=== PATIENT | male | born 1945 | race Caucasian/White ===

== ENCOUNTER 2020-11-08 12:00 | Emergency (ER) | payer MEDICARE, SELFPAY ==
--- NOTE | 2020-11-08 | ECG_ITS ---
Test Reason : NEW ONSET AFIB Blood Pressure : / mmHG Vent. Rate : 084 BPM Atrial Rate : 084 BPM P-R Int : 176 ms QRS Dur : 104 ms QT Int : 376 ms P-R-T Axes : 058 -64 048 degrees QTc Int : 444 ms Normal sinus rhythm Possible Left atrial enlargement Left axis deviation Anterior infarct (cited on or before 10-JUL-2017) Abnormal ECG When compared with ECG of 10-JUL-2017 14:04, No significant change was found Referred By: Generic ED Physician Electronically Signed By:GER CEJA MD
--- NOTE | ~2020-11-08 | XR_ITS ---
EXAMINATION: XR CHEST CLINICAL INFORMATION: Tachycardia COMPARISON: None TECHNIQUE: 2 views of the chest were obtained. FINDINGS: The lungs are hyperinflated but clear of acute process. There is a 6 mm nodule right lower lobe. Rest of lungs are clear. Heart size and pulmonary vascularity is normal. No gross bony abnormality seen. XR/XR chest 2V IMPRESSION: 6 mm nodule right lower lobe otherwise no acute process. Diffuse emphysematous lungs.
[2020-11-08 12:08] VITALS: BP 159/72; PULSE 85; RESP 16; TEMP 36.6; O2SAT 93; BMI 22.4
--- NOTE | 2020-11-08 12:38 | ED_ITS ---
HPI - General Adult General Chief complaint: Arrhythmia/Palpitations Stated complaint: ABNORMAL RHYTHM FROM MD OFFICE PER EMS Time Seen by Provider: 11/08/20 12:35 Source: patient and EMS Mode of arrival: EMS Limitations: no limitations History of Present Illness HPI narrative: 75-year-old male with a past medical history of BPH, hypertension, hyperlipidemia, COPD here with complaints of abnormal heart rhythm. Patient was seen at his primary care doctor for an annual physical. While he was here they noted his heart rate to be 130 and so they performed an EKG. His EKG was consistent with AFib with RVR with a rate of 130. The patient denies any symptoms. He tells me he has been feeling well. Denies any palpitations, weakness, shortness of breath or dizziness. On arrival to the emergency department did appear that he was back in normal sinus rhythm and a repeat EKG shows normal sinus rhythm with a rate of 84 Related Data Previous Rx's Medication Instructions Recorded rivaroxaban [Xarelto] 20 mg PO DAILY #30 tab 11/08/20 Allergies Allergy/AdvReac Type Severity Reaction Status Date / Time No Known Allergies Allergy Unverified 01/29/20 15:22 [No Known Allergies*] Review of Systems Review of Systems: Yes all other systems are reviewed and are negative Constitutional: Constitutional: Reports no additional constitutional complaints, Denies body ache(s), Denies chills, Denies fever(s), Denies headache(s) and Denies weakness Eyes: Eyes: Reports no additional eye complaints and Denies change in vision ENT: Reports system reviewed and no additional complaints, except as documented, Denies dizziness, Denies headache(s), Denies nasal congestion, Den ies nasal discharge and Denies neck pain Cardiovascular: Cardiovascular: Reports no additional cardiovascular complaints, Denies chest pain, Reports rapid heart rate, Denies leg edema and Denies dyspnea Respiratory: Respiratory: Reports no additional respiratory complaints, Denies cough and Denies dyspnea Gastrointestinal: Gastrointestinal: Reports no additional gastrointestinal complaints, Denies abdominal pain, Denies diarrhea, Denies nausea and Denies vomiting Genitourinary: Genitourinary: Denies urinary incontinence Musculoskeletal: Musculoskeletal: Reports no additional musculoskeletal complaints, Denies back pain, Denies arthralgias, Denies joint swelling, Denies neck pain, Denies numbness and Denies tingling Integumentary/Breasts: Skin/Breast: Reports system reviewed and no additional complaints, except as docu and Denies rash Neurologic: Reports system reviewed and no additional complaints, except as documented, Denies Abnormal speech present, Denies dizziness, Denies headache(s), Denies numbness, Denies tingling and Denies weakness PMFSH Past Medical History Attestation statement: The following information was validated with the patient. Source: old records reviewed and nursing notes reviewed Medical History AAA (abdominal aortic aneurysm) Cardiac arrhythmia, unspecified COPD (chronic obstructive pulmonary disease) [place] (hard of hearing) HTN (hypertension) Hypercholesteremia Myocardial infarct Neoplasm Social History Social History Alcohol intake: never Smoked in Last 30 Days: No Use of substances other than those prescribed or required for medical reasons: No Advance Directives: Yes Advance Directives Information Provided: No Advance Directives on File: No Physical Exam Vital Signs: Vital Signs: Last Vital Signs Temp 97.9 F 11/08/20 12:08 Pulse 72 11/08/20 15:32 Resp 16 11/08/20 15:32 BP 135/66 11/08/20 15:32 Pulse Ox 95 11/08/20 15:32 Body Mass Index 22.4 Const: General: cooperative, healthy appearing, comfortable and no acute distress Orientation/consciousness: patient oriented x3 Limitations: no limitations HENMT: Head: Yes normal to inspection Ears: hearing grossly normal bilaterally General nose exam: Normal external nose present Face and sinus: Yes normal facial exam Mouth: Normal oral and palatal mucosa present Throat: Yes posterior oropharynx normal Eyes: General: appearance normal, both eyes and all related structures Pupils: Equal, round and reactive pupils present Neck: Neck: Yes normal visual inspection Chest: Chest palpation & inspection: normal inspection of the chest Resp: Effort & Inspection: normal respiratory effort Auscultation: clear to auscultation bilaterally Cardio: Rate: regular rate Rhythm: regular rhythm Peripheral pulses: Peripheral pulses 2+ throughout GI: Inspection: Yes normal to inspection Palpation (GI): Soft to palpation and nontender Auscultation: normal bowel sounds Back/Spine/Pelvis: Thoracic/Lumbar Spine: thoracic and lumbar spine normal to inspection Skin: General skin exam: no rashes or lesions noted Neuro: General: patient oriented x3, no focal motor deficits and normal sensation to monofilament Cranial nerves: Yes Equal, round and reactive pupils present Cognition (Neuro): normal cognition Speech: No Abnormal spe ech present Gait exam (Neuro): Normal gait present Motor exam (neuro): 5/5 motor strength present throughout Extrem: General: Yes normal to inspection, Yes no pedal edema and Yes no calf tenderness Course Course Course Narrative: 75-year-old male coming in after noted to be in AFib out the primary care office with a rate of 130. He has been asymptomatic. Unknown how long he may have been in AFib. On arrival to the emergency department his heart rate was improved and repeat EKG shows normal sinus rhythm with a rate of 84. he denies any symptoms. Will check EKG, chest x-ray, labs - initial troponin indeterminate. Plan for repeat 3 hour troponin. Being chest x-ray shows no acute finding. EKG shows normal sinus rhythm with rate 84. 1630- Chads score 2. discussed with Dr. Freitas. Recommended starting patient on Xarelto 20 mg and following outpatient with Cardiology troponin x2 flat Medical Decision Making Medical Records Medical records reviewed: Yes I reviewed the patient's medical records. Lab Data Lab results reviewed: Yes I reviewed the patient's lab results. Result diagrams: 11/08/20 12:45 11/08/20 12:45 Labs: Lab Results 11/08/20 11/08/20 11/08/20 Range/Units 12:45 12:45 12:45 WBC 11.0 H (4.8-10.8) X10*3/uL RBC 5.10 (4.60-5.80) X10*6/uL Hgb 16.5 (14.0-18.0) g/dl Hct 47.7 (42-52) % MCV 93.5 (80-98) fL MCH 32.4 (27.0-33.0) pg MCHC 34.6 (31.0-36.0) g/dl RDW 13.0 (11.0-16.0) % Plt Count 250 (160-400) X10*3/uL MPV 9.4 (9.4-12.4) fL Immature Gran % (Auto) 0.4 (0.0-0.4) % Neut % (Auto) 76.3 H (45-73) % Lymph % (Auto) 14.8 L (20-40) % [place] % (Auto) 7.7 (2-11) % Eos % (Auto) 0.3 (0-4) % Baso % (Auto) 0.5 (0-2) % Lymph # (Auto) 1.6 (1.2-4.9) X10*3/uL [place] # (Auto) 0.8 (0.1-1.2) X10*3/uL Eos # (Auto) 0.0 (0.0-0.4) X10*3/uL Baso # (Auto) 0.1 (0.0-0.2) X10*3/uL Abs Immat Gran (auto) 0.04 H (0.00-0.03) X10*3/uL Absolute Neuts (auto) 8.4 H (2.0-8.3) X10*3/uL Absolute Nucleated RBC 0.000 (0.0-0.012) X10*3/uL Nucleated RBC % (auto) 0.0 (0.0-0.2) /100WBC Sodium 141 (135-145) mmol/L Potassium 3.3 (3.3-5.1) mmol/L Chloride 105 (96-108) mmol/L Carbon Dioxide 24 (22-29) mmol/L Anion Gap 15 (12-20) BUN 16 (9-16) mg/dL Creatinine 0.91 (0.5-1.4) mg/dL Estim Creat Clear Calc 69.4 Estimated GFR > 60 Random Glucose 106 (60-115) mg/dL Calcium 9.8 (8.4-10.2) mg/dL Magnesium 2.1 (1.6-2.6) mg/dL Total Bilirubin 0.4 (0.0-1.0) mg/dL Direct Bilirubin 0.3 (0.0-0.5) mg/dL AST 18 (5-37) U/L ALT 13 (0-40) U/L Alkaline Phosphatase 79 (39-117) U/L Troponin I High Sens 10.4 (<3.5-35.0) ng/L Total Protein 7.4 (6.5-8.0) g/dL Albumin 4.6 (3.5-5.0) g/dL 11/08/20 Range/Units 15:56 WBC (4.8-10.8) X10*3/uL RBC (4.60-5.80) X10*6/uL Hgb (14.0-18.0) g/dl Hct (42-52) % MCV (80-98) fL MCH (27.0-33.0) pg MCHC (31.0-36.0) g/dl RDW (11.0-16.0) % Plt Count (160-400) X10*3/uL MPV (9.4-12.4) fL Immature Gran % (Auto) (0.0-0.4) % Neut % (Auto) (45-73) % Lymph % (Auto) (20-40) % [place] % (Auto) (2-11) % Eos % (Auto) (0-4) % Baso % (Auto) (0-2) % Lymph # (Auto) (1.2-4.9) X10*3/uL [place] # (Auto) (0.1-1.2) X10*3/uL Eos # (Auto) (0.0-0.4) X10*3/uL Baso # (Auto) (0.0-0.2) X10*3/uL Abs Immat Gran (auto) (0.00-0.03) X10*3/uL Absolute Neuts (auto) (2.0-8.3) X10*3/uL Absolute Nucleated RBC (0.0-0.012) X10*3/uL Nucleated RBC % (auto) (0.0-0.2) /100WBC Sodium (135-145) mmol/L Potassium (3.3-5.1) mmol/L Chloride (96-108) mmol/L Carbon Dioxide (22-29) mmol/L Anion Gap (12-20) BUN (9-16) mg/dL Creatinine (0.5-1.4) mg/dL Estim Creat Clear Calc Estimated GFR Random Glucose (60-115) mg/dL Calcium (8.4-10.2) mg/dL Magnesium (1.6-2.6) mg/dL Total Bilirubin (0.0-1.0) mg/dL Direct Bilirubin (0.0-0.5) mg/dL AST (5-37) U/L ALT (0-40) U/L Alkaline Phosphatase (39-117) U/L Troponin I High Sens 13.5 (<3.5-35.0) ng/L Total Protein (6.5-8.0) g/dL Albumin (3.5-5.0) g/dL Imaging Data Chest x-ray: Attestation: I personally reviewed and interpreted this imaging study as follows: Radiologist's impression: XAMINATION: XR CHEST CLINICAL INFORMATION: Tachycardia COMPARISON: None TECHNIQUE: 2 views of the chest were obtained. FINDINGS: The lungs are hyperinflated but clear of acute process. There is a 6 mm nodule right lower lobe. Rest of lungs are clear. Heart size and pulmonary vascularity is normal. No gross bony abnormality seen. XR/XR chest 2V IMPRESSION: 6 mm nodule right lower lobe otherwise no acute process. Diffuse emphysematous lungs. ECG Data Attestation: I personally reviewed and interpreted this ECG as follows: Interpretation: normal sinus rhythm with a rate of 84 Discharge Plan Discharge Clinical Impression: Atrial fibrillation Qualifiers: Atrial fibrillation type: unspecified Qualified Code(s): I48.91 - Unspecified atrial fibrillation Patient Disposition: Home, Self-Care Instructions: Rivaroxaban (By mouth), A-fib (Atrial Fibrillation) (ED), Blood Thinners (ED) Additional Instructions: Your blood work and x-ray looked normal. You are actually in a normal sinus rhythm since arriving to the emergency department. After discussion with our child and adolescent psychiatrist we have decided to place you on blood thinners. This is to prevent a blood clot or stroke from occurring. You need to call cardiology for a follow-up appointment. While you are taking blood thinners you cannot take any aspirin, Motrin, ibuprofen, naproxen. You are now increased risk for bleeding. if you fall and hit your head you need to seek care in the emergency department. If you cut yourself apply direct pressure for 15 minutes and this is not resolved seek care in the emergency department. Use an electric razor for shaving Prescriptions: New Xarelto 20 mg tablet 20 mg PO DAILY Qty: 30 RF: 0 Referrals: Jonas Freitas MD [Physician] - 2 days Interventions: ED Discharge Assessment Last Done: 11/08/20 16:56 Discharge Date/Time: 11/08/20 16:56
[2020-11-08 12:50] LABS: MANUAL DIFF FLAG NO
[2020-11-08 12:54] LABS: Basophils Absolute Auto 0.1 X10*3/uL (0.0-0.2); Basophils Percent Auto 0.5 % (0-2); Eosinophils Percent Auto 0.3 % (0-4); Hematocrit 47.7 % (42-52); Hemoglobin 16.5 g/dl (14.0-18.0); Imm Gran Abs Auto 0.04 X10*3/uL (0.00-0.03); Imm Gran Pct Auto 0.4 % (0.0-0.4); Lymphocytes Absolute Auto 1.6 X10*3/uL (1.2-4.9); Lymphocytes Percent Auto 14.8 % (20-40); Mean Corpuscular HGB Conc 34.6 g/dl (31.0-36.0); Mean Corpuscular Hemoglobin 32.4 pg (27.0-33.0); Mean Corpuscular Volume 93.5 fL (80-98); Mean Platelet Volume 9.4 fL (9.4-12.4); Monocytes Absolute Auto 0.8 X10*3/uL (0.1-1.2); Monocytes Percent Auto 7.7 % (2-11); Neutrophils Absolute Auto 8.4 X10*3/uL (2.0-8.3); Neutrophils Percent Auto 76.3 % (45-73); Platelet Count 250 X10*3/uL (160-400)
[2020-11-08 13:14] LABS: Alanine Aminotransferase 13 U/L (0-40); Albumin Level 4.6 g/dL (3.5-5.0); Alkaline Phosphatase 79 U/L (39-117); Anion Gap 15 (12-20); Aspartate Amino Transferase 18 U/L (5-37); Bilirubin Direct 0.3 mg/dL (0.0-0.5); Bilirubin Total 0.4 mg/dL (0.0-1.0); Blood Urea Nitrogen 16 mg/dL (9-16); Calcium 9.8 mg/dL (8.4-10.2); Carbon Dioxide 24 mmol/L (22-29); Chloride 105 mmol/L (96-108); Creatinine Clr Calc Pharmacy 69.4; Estimated Glomerular Filt Rate > 60; Glucose Random 106 mg/dL (60-115); Magnesium 2.1 mg/dL (1.6-2.6); Potassium 3.3 mmol/L (3.3-5.1); Sodium 141 mmol/L (135-145); Total Protein 7.4 g/dL (6.5-8.0)
[2020-11-08 13:18] LABS: Troponin-I High Sensitivity 10.4 ng/L (<3.5-35.0)
[2020-11-08 14:00] VITALS: PULSE 71; RESP 22; O2SAT 93
[2020-11-08 15:32] VITALS: BP 135/66; PULSE 72; RESP 16; O2SAT 95
--- NOTE | 2020-11-08 15:33 | PC.NURSE ---
NSR on monitor, Pt denies pain. Irritable states all i want to do it get out of here Aware of plan for troponin at 1545 Skin pink warm and dry. Speaking full sentences
--- NOTE | 2020-11-08 15:59 | PC.NURSE ---
repeat troponin obtained/sent
[2020-11-08 16:33] LABS: Troponin-I High Sensitivity 13.5 ng/L (<3.5-35.0)
== END 2020-11-08 16:56 | disposition home or self-care (01) ==
PROVIDERS: Nurse Practitioner Family; Emergency Provider Emergency Medicine Emergency Medical Services; PCP Internal Medicine
DX: I48.91 Unspecified atrial fibrillation (principal); I10 Essential (primary) hypertension; J44.9 Chronic obstructive pulmonary disease, unspecified; I25.2 Old myocardial infarction
CPT/HCPCS: 36415; 71046; 80048; 80076; 83735; 84484; 85025; 93005; 99285

== ENCOUNTER → 2020-11-10 11:22 | Outpatient (REF) | payer MEDICARE, SELFPAY | LOC: HO.CARD 11:22 | PROVIDERS: Visit Provider Internal Medicine Cardiovascular Disease | DX: Z13.89 Encounter for screening for other disorder (principal) ==

== ENCOUNTER → 2020-12-06 09:03 | Outpatient (REF) | payer MEDICARE, SELFPAY ==
--- NOTE | 2020-12-06 10:40 | ECG_ITS ---
Hook-up date: 2020-12-06 09:21:00 Duration: 28:22:00 Test Indications: UNSPEC. AFIB Medications: 246415 QRS complexes 1972 Ventricular ectopics which represent 1 % of total QRS comp. 146 Supraventricular ectopics which represent <1 % of total QRS comp. * Paced QRS complexs which represent % of total QRS comp. VENTRICULAR ECTOPY 1934 Isolated 6 Bigeminal Cycles 19 Couplets 0 Runs 0 Beats in Runs * Beats LONGEST at * BPM at :: -- * Beats FASTEST at * BPM at :: -- SUPRAVENTRICULAR ECTOPY 146 Isolated 0 Couplets 0 Runs 0 Beats in Runs * Beats LONGEST at * BPM at :: -- * Beats FASTEST at * BPM at :: -- HEART RATES 70 MIN at 20:56:39 2020-12-06 83 AVG 119 MAX at 14:05:09 2020-12-06 LONGEST RR 0.9200 secs at 06:51:27 2020-12-07 S-T LEVELS Channel 1 - 128 mm at 09:21:00 2020-12-06 - 128 mm at 09:21:00 2020-12-06 Channel 2 - 128 mm at 09:21:00 2020-12-06 - 128 mm at 09:21:00 2020-12-06 Channel 3 - 128 mm at 02:84:01 -- - 128 mm at 02:84:01 Underlying rhythm is sinus; Average ventricular rate 83/min; range 70-119/min; Occasional Premature ventricular complexes (2%); mostly isolated with some couplets; Rare Premature atrial complexes ; No evidence of atrial fibrillation; Patient did not return diary Referred By: Jonas Freitas Overread By: VICENTE LONG
== END ==
LOC: HO.CARD 09:03
PROVIDERS: PCP Internal Medicine; Visit Provider Internal Medicine Cardiovascular Disease
DX: I48.91 Unspecified atrial fibrillation (principal)
CPT/HCPCS: 93226

== ENCOUNTER → 2020-12-27 08:09 | Outpatient (REF) | payer MEDICARE, SELFPAY ==
--- NOTE | 2020-12-27 08:14 | CA_ITS ---
Transthoracic Echocardiogram Patient (Last, First, Middle): Sukh Montes J Gender: Male Date of : 1945 Age: 75 Procedure Date: 12/27/2020 Procedure Type: Transthoracic Echocardiogram Location: OP Height: 175.26 cm Weight: 68.95 kg BSA: 1.84 m2 Heart Rate: bpm BP: 116 / 60 mmHg Brand Inspector: Referring MD: Jonas Freitas MD Symptoms: I48.91 - Unspecified atrial fibrillation Study Quality: Fair ECG Rhythm: Sinus Conclusions: - The left ventricular systolic function is normal. The visually estimated ejection fraction is between 65-70%. - There is mild calcification of the aortic valve. Findings Left Ventricle Normal left ventricular cavity size. There is normal left ventricular wall thickness. The left ventricular systolic function is normal. The visually estimated ejection fraction is between 65-70%. There is no evidence of regional wall motion abnormalities. Diastolic function is normal for age. Right Ventricle Normal right ventricular cavity size and systolic function. Atria Both atria are normal in size. Aortic Valve There is a normal trileaflet aortic valve. There is mild calcification of the aortic valve. There is no aortic valve stenosis. The mean gradient is 4 mmHg. There is trace (trivial) aortic valve regurgitation. Mitral Valve The mitral valve appears normal. There is no mitral valve regurgitation. There is no mitral valve stenosis. Pulmonic Valve The pulmonic valve was not well visualized. There is trace pulmonic valve regurgitation. Tricuspid Valve Normal tricuspid valve structure. There is trace tricuspid valve regurgitation. The pulmonary artery systolic pressure is normal. Great Vessels The aortic annulus, sinuses of valsalva, and asc aorta are normal in size. Venous The inferior vena cava is normal in size and collapses greater than 50% with inspiration. Pericardium/Pleural There is no evidence of pericardial effusion. Prior Study Comparison No significant change compared to prior study dated: 08/07/2017. Measurements 2D Linear Measurements IVSd: 1.01 0.6-0.9/0.6-1.0 cm LVIDd: 4.38 3.9-5.3/4.2-5.9 cm LVIDd Index: 2.38 2.4-3.2/2.2-3.1 cm/m2 LVIDs: 2.73 2.0-3.6 cm LVPWd: 1.00 0.7-1.1 cm Ao Root: 3.60 2.1-3.5 cm LA Diam: 3.60 2.7-3.8/3.0-4.0 cm LAIDs Index: 1.96 1.5-2.3 cm/m2 LV Mass: 183.97 67-162/88-224 g LV Mass Index: 99.98 43-95/49-115 g/m2 LVOT Diam: 2.50 3.0+(-)1.3 cm 2D Systolic Function EF 4C: 64.60 >55% EF 2C: 68.70 >55% EF BiP: 67.00 >55% Mitral Valve MV Pk E: 0.63 MV PK A: 0.91 MV Decel Time: 214.00 E/A: 0.70 E'Lateral: 9.95 E'Medial: 6.42 E/E' Med: 9.80 E/E' Lat: 6.30 PHT: 63.00 MVA PHT: 3.49 Decel Chase: 2.94 Aortic Valve AoV Pk Michael: 1.43 AoV Mn Michael: 0.90 AoV VTI: 0.32 AoV Pk Grad: 8.00 Aov Mn Grad: 4.00 [place] Cont.VTI: 2.93 LVOT LVOT Pk Michael: 0.71 LVOT Mn Michael: 0.36 LVOT VTI: 0.19 LVOT Pk Grad: 2.00 LVOT Mn Grad: 1.00 LVOT Diam: 2.50 LVOT Area: 4.91 Diastolic Function MV Pk E: 0.63 MV Pk A: 0.91 E/A: 0.70 E'Medial: 6.42 E/E' Med: 9.80 E' Laterial: 9.95 E/E' Lat: 6.30 Right Ventricle TAPSE (mm): 26.00 Tricuspid Valve TR Pk Michael: 1.82 TR Pk Grad: 13.00 RA Press: 3.00 RVSP: 16.00 Great Vessels Aorta Ao Root-2D: 3.60 2.0-3.7 cm Ao Asc: 3.30 2.1-3.4 cm Pulmonary Valve PV Pk Michael: 1.03 Peak PV Grad: 4.00 Updated in Other Vendor System with Status of Final Deepak Benavides MD electronically signed on 12/28/2020 12:04:58 PM with status of Final
== END ==
LOC: HO.CARD 08:09
PROVIDERS: Visit Provider Internal Medicine Cardiovascular Disease
DX: I48.91 Unspecified atrial fibrillation (principal)
CPT/HCPCS: 93306

== ENCOUNTER → 2021-01-10 13:36 | Outpatient (BNVA) | payer MEDICARE, SELFPAY | PROVIDERS: PCP Internal Medicine; Visit Provider Internal Medicine Cardiovascular Disease | DX: I48.0 Paroxysmal atrial fibrillation (principal); I49.3 Ventricular premature depolarization; I10 Essential (primary) hypertension; I77.9 Disorder of arteries and arterioles, unspecified | CPT/HCPCS: 93005; 99212 ==

== ENCOUNTER → 2021-07-11 08:20 | Outpatient (BNVA) | payer MEDICARE, SELFPAY | PROVIDERS: PCP Internal Medicine; Visit Provider Internal Medicine Cardiovascular Disease | DX: I48.0 Paroxysmal atrial fibrillation (principal); I77.9 Disorder of arteries and arterioles, unspecified; Z79.01 Long term (current) use of anticoagulants; Z79.899 Other long term (current) drug therapy | CPT/HCPCS: 93005; 99212 ==

== ENCOUNTER → 2022-08-16 08:49 | Outpatient (REF) | payer MEDICARE, SELFPAY ==
--- NOTE | 2022-08-16 08:51 | CA_ITS ---
Transthoracic Echocardiogram Patient (Last, First, Middle): Sukh Montes J Gender: Male Date of : 1945 Age: 77 Procedure Date: 08/16/2022 Procedure Type: Transthoracic Echocardiogram Location: OP Height: 177.8 cm Weight: 68.95 kg BSA: 1.86 m2 Heart Rate: 61 bpm BP: 110 / 60 mmHg Auto Body Technician: TEJAL Referring MD: Jonas Freitas MD Forest Aide: Jonas Freitas MD Symptoms: I48.0 - Paroxysmal atrial fibrillation Study Quality: Technically Difficult ECG Rhythm: Sinus Conclusions: - 1. Normal LV systolic function with impaired relaxation filling pattern 2. Normal cardiac valvular Doppler 3. No gross pericardial effusion Findings Left Ventricle Normal left ventricular size, thickness, and systolic function. The visually estimated ejection fraction is between 60-65%. Spectral Doppler is indicative of an impaired relaxation filling pattern. E/E prime ratio is between 8 and 15 consistent with indeterminate filling pressures. Right Ventricle Normal right ventricular cavity size and systolic function. Atria The left atrium is normal in size. Interatrial shunt cannot be excluded. The right atrium was not well visualized. Aortic Valve There is mild calcification of the aortic valve. There is no aortic valve stenosis. There is no aortic valve regurgitation. Mitral Valve There is mild anterior and posterior mitral leaflet thickening. There is trace mitral valve regurgitation. There is no mitral valve stenosis. Pulmonic Valve The pulmonic valve was not well visualized. Tricuspid Valve Likely normal tricuspid valve structure and function. Tricuspid regurgitation envelope is inadequate for calculation of right ventricular systolic pressure. Normal right atrial pressure. Great Vessels All visible segments of the aorta are normal in size. The pulmonary artery was not well visualized. Venous The inferior vena cava is normal in size and collapses greater than 50% with inspiration. Pericardium/Pleural There is no evidence of pericardial effusion. Measurements 2D Linear Measurements IVSd: 1.12 0.6-0.9/0.6-1.0 cm LVIDd: 4.21 3.9-5.3/4.2-5.9 cm LVIDd Index: 2.26 2.4-3.2/2.2-3.1 cm/m2 LVIDs: 2.45 2.0-3.6 cm LVPWd: 1.09 0.7-1.1 cm LA Diam: 3.60 2.7-3.8/3.0-4.0 cm LAIDs Index: 1.94 1.5-2.3 cm/m2 LV Mass: 197.59 67-162/88-224 g LV Mass Index: 106.23 43-95/49-115 g/m2 LVOT Diam: 2.40 3.0+(-)1.3 cm 2D Systolic Function EF 4C: 62.00 >55% EF 2C: 59.50 >55% EF BiP: 60.20 >55% Mitral Valve MV Pk E: 0.94 MV PK A: 0.93 MV Decel Time: 205.00 E/A: 1.00 E'Lateral: 6.74 E'Medial: 6.85 E/E' Med: 13.80 E/E' Lat: 14.00 PHT: 60.00 MVA PHT: 3.67 Decel Keith: 4.59 Aortic Valve AoV Pk Michael: 1.57 AoV Mn Michael: 1.16 AoV VTI: 0.35 AoV Pk Grad: 10.00 Aov Mn Grad: 6.00 [place] Cont.VTI: 2.49 LVOT LVOT Pk Michael: 0.90 LVOT Mn Michael: 0.61 LVOT VTI: 0.19 LVOT Pk Grad: 3.00 LVOT Mn Grad: 2.00 LVOT Diam: 2.40 LVOT Area: 4.52 Diastolic Function MV Pk E: 0.94 MV Pk A: 0.93 E/A: 1.00 E'Medial: 6.85 E/E' Med: 13.80 E' Laterial: 6.74 E/E' Lat: 14.00 Right Ventricle TAPSE (mm): 18.50 TVS' Michael: 9.46 Tricuspid Valve RA Press: 3.00 Great Vessels Aorta Sinus of Valsalva: 3.80 2.0-3.5 cm Ao Asc: 3.40 2.1-3.4 cm Pulmonary Valve PV Pk Michael: 0.79 Peak PV Grad: 2.00 Updated in Other Vendor System with Status of Final Jonas Freitas MD electronically signed on 08/16/2022 12:39:33 PM with status of Final
== END ==
LOC: HO.CARD 08:49
PROVIDERS: PCP Internal Medicine; Visit Provider Internal Medicine Cardiovascular Disease
DX: I48.0 Paroxysmal atrial fibrillation (principal)
CPT/HCPCS: 93306

== ENCOUNTER 2023-03-19 08:02 | Outpatient (AMB) | payer MEDICARE, SELFPAY ==
[2023-03-19 08:35] LABS: Prothrombin Time Whole Bld POC 40.4 sec (11.1-13.5); ~PT, ~INR - Anti Coag Clinic 3.4 (0.9-1.1)
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
[2023-03-19 10:38] VITALS: BP 142/64; PULSE 68; RESP 20
== END 2023-03-19 12:00 | disposition home or self-care (01) ==
LOC: HO.ACS 08:02
PROVIDERS: PCP Internal Medicine; Visit Provider Internal Medicine
DX: Z79.01 Long term (current) use of anticoagulants (principal)

== ENCOUNTER → 2023-03-19 08:02 | Outpatient (BNVA) | payer MEDICARE, SELFPAY | PROVIDERS: PCP Internal Medicine; Visit Provider Internal Medicine | DX: I48.0 Paroxysmal atrial fibrillation (principal); Z79.01 Long term (current) use of anticoagulants; Z51.81 Encounter for therapeutic drug level monitoring | CPT/HCPCS: 85610; 99202 ==

== ENCOUNTER 2023-03-22 08:07 | Outpatient (AMB) | payer MEDICARE, SELFPAY ==
[2023-03-22 08:18] LABS: Prothrombin Time Whole Bld POC 31.2 sec (11.1-13.5); ~PT, ~INR - Anti Coag Clinic 2.6 (0.9-1.1)
--- NOTE | 2023-03-22 08:22 | MHC.OFFVISCO ---
Intake Intake Visit Reasons: Anticoagulation Allergies No Known Allergies [No Known Allergies*] Allergy (Verified 03/22/23 08:11) Medication List - Last Reconciled 03/22/23 by Britany Flores RN atorvastatin 20 mg PO DAILY cilostazol 100 mg PO .qd fluticasone propionate 50 mcg/actuation 1 spray intranasal BID hydrochlorothiazide 25 mg PO DAILY metoprolol succinate ER 25 mg PO DAILY nifedipine ER 60 mg PO DAILY umeclidinium 62.5 mcg/actuation (Incruse Ellipta) 1 inh inhalation DAILY warfarin 5 mg See Protocol PO DAILY Nursing Note Amb to ACS for ACS visit #2, feeling well, going to work after this appt Medications and supplements reviewed, brought warfarin bottle in, script reads one pill daily and qty filled was 30, will call PCP for new script No changes in health, diet, medications, or supplements, although sts he really didn't do greens had roasted veggies including beets, butternut squash, reviewed food lists Denies any unusual signs and symptoms of bruising, bleeding Denies any new Chest pain, SOB, or clotting INR: 2.6 in therapeutic range, off Eloquis Nutritional guidance given: balance greens and reds in diet Dose: continue 5mg daily but take 2.5mg on Sunday (bring to next visit); F/U INR: SundayMar 26 Patient verbalizes understanding of instructions given with accurate read back/ teach back of dosing Anti-Coag Initial Assessment Social Hx Patient Tobacco Use Status: Current someday Tobacco user Tobacco use type: Cigarette alcohol intake: former Alcohol intake frequency: former alcohol drinker Cardiovascular Hx: HTN, [place], Arrhythmias and Other (PVD recent bilateral femoral stents) Lung Disease HX: COPD and Emphysema Blood Disorder Hx: Hyperlipidemia Cancer HX: No Psych. Illness/Depression: No Coding Level of Care Code Est Patient Level 1 Diagnoses Current use of anticoagulant therapy Z79.01 Time Spent (min) 15 Assessment & Plan Assessment & Plan (1) Current use of anticoagulant therapy: Code(s): Z79.01 - [facility] (current) use of anticoagulants Category: Medical
== END 2023-03-22 08:35 | disposition home or self-care (01) ==
LOC: HO.ACS 08:07
PROVIDERS: PCP Internal Medicine; Visit Provider Internal Medicine
DX: Z79.01 Long term (current) use of anticoagulants (principal)

== ENCOUNTER → 2023-03-22 08:07 | Outpatient (BNVA) | payer MEDICARE, SELFPAY | PROVIDERS: PCP Internal Medicine; Visit Provider Internal Medicine | DX: I48.0 Paroxysmal atrial fibrillation (principal); Z79.01 Long term (current) use of anticoagulants; Z51.81 Encounter for therapeutic drug level monitoring | CPT/HCPCS: 85610; 99211 ==

== ENCOUNTER 2023-03-26 07:59 | Outpatient (AMB) | payer MEDICARE, SELFPAY ==
[2023-03-26 08:08] LABS: Prothrombin Time Whole Bld POC 43.3 sec (11.1-13.5); ~PT, ~INR - Anti Coag Clinic 3.6 (0.9-1.1)
--- NOTE | 2023-03-26 08:16 | MHC.OFFVISCO ---
Intake Intake Visit Reasons: Anticoagulation Allergies No Known Allergies [No Known Allergies*] Allergy (Verified 03/26/23 08:01) Medication List - Last Reconciled 03/26/23 by Adriane Schmidt RN atorvastatin 20 mg PO DAILY cilostazol 100 mg PO .qd fluticasone propionate 50 mcg/actuation 1 spray intranasal BID hydrochlorothiazide 25 mg PO DAILY metoprolol succinate ER 25 mg PO DAILY nifedipine ER 60 mg PO DAILY umeclidinium 62.5 mcg/actuation (Incruse Ellipta) 1 inh inhalation DAILY warfarin 5 mg See Protocol PO DAILY Nursing Note INR: 3.6 OUT OF therapeutic range Medications and supplements reviewed No changes in health, diet, medications, or supplements, Denies any signs and symptoms of bleeding or bruising or clotting. Bleeding, bruising, clotting discussed Nutritional guidance given REVIEW FOOD LIST HAVE GREENS WEEKLY Dose: DECREASE WEESLY DOSE 2.5MG X 2 DAYS/ 5MG X 5 DAYS F/U INR: 1 WEEK Patient verbalizes understanding of instructions given Anti-Coag Initial Assessment Social Hx Patient Tobacco Use Status: Current someday Tobacco user Tobacco use type: Cigarette alcohol intake: former Alcohol intake frequency: former alcohol drinker Cardiovascular Hx: HTN, [place], Arrhythmias and Other (PVD recent bilateral femoral stents) Lung Disease HX: COPD and Emphysema Blood Disorder Hx: Hyperlipidemia Cancer HX: No Psych. Illness/Depression: No Coding Level of Care Code Est Patient Level 1 Diagnoses Current use of anticoagulant therapy Z79.01 Results AMB INR Fingerstick AMB INR Fingerstick 3.6 Last Edit by Adriane Schmidt RN on 03/26/23 08:09 manual entry Assessment & Plan Assessment & Plan (1) Current use of anticoagulant therapy: Code(s): Z79.01 - sn[facility] (current) use of anticoagulants Category: Medical Medications: On Hold hydrochlorothiazide Hold Comment: pt states has not been renewed pt to ask md 25 mg PO DAILY
== END 2023-03-26 08:18 | disposition home or self-care (01) ==
LOC: HO.ACS 07:59
PROVIDERS: PCP Internal Medicine; Visit Provider Internal Medicine
DX: Z79.01 Long term (current) use of anticoagulants (principal)

== ENCOUNTER → 2023-03-26 07:59 | Outpatient (BNVA) | payer MEDICARE, SELFPAY | PROVIDERS: PCP Internal Medicine; Visit Provider Internal Medicine | DX: I48.0 Paroxysmal atrial fibrillation (principal); Z79.01 Long term (current) use of anticoagulants; Z51.81 Encounter for therapeutic drug level monitoring | CPT/HCPCS: 85610; 99211 ==

== ENCOUNTER 2023-04-02 08:19 | Outpatient (AMB) | payer MEDICARE, SELFPAY ==
[2023-04-02 08:48] LABS: Prothrombin Time Whole Bld POC 35.9 sec (11.1-13.5)
--- NOTE | 2023-04-02 08:54 | MHC.OFFVISCO ---
Intake Intake Visit Reasons: Anticoagulation Allergies No Known Allergies [No Known Allergies*] Allergy (Verified 03/26/23 08:01) Nursing Note INR: 3.0 in therapeutic range Medications and supplements reviewed No changes in health, diet, medications, or supplements, Denies any signs and symptoms of bleeding or bruising or clotting. Bleeding, bruising, clotting discussed Nutritional guidance given Dose: KEEP SAME DOSE 2.5MG X 2 DAYS/ 5MG X 5 DAYS TRY AGAIN F/U INR: 1 WEEK Patient verbalizes understanding of instructions given Anti-Coag Initial Assessment Social Hx Patient Tobacco Use Status: Current someday Tobacco user Tobacco use type: Cigarette alcohol intake: former Alcohol intake frequency: former alcohol drinker Cardiovascular Hx: HTN, [place], Arrhythmias and Other (PVD recent bilateral femoral stents) Lung Disease HX: COPD and Emphysema Blood Disorder Hx: Hyperlipidemia Cancer HX: No Psych. 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
== END 2023-04-02 08:56 | disposition home or self-care (01) ==
LOC: HO.ACS 08:19
PROVIDERS: PCP Internal Medicine; Visit Provider Internal Medicine
DX: Z79.01 Long term (current) use of anticoagulants (principal)

== ENCOUNTER → 2023-04-02 08:19 | Outpatient (BNVA) | payer MEDICARE, SELFPAY | PROVIDERS: PCP Internal Medicine; Visit Provider Internal Medicine | DX: I48.0 Paroxysmal atrial fibrillation (principal); Z79.01 Long term (current) use of anticoagulants; Z51.81 Encounter for therapeutic drug level monitoring | CPT/HCPCS: 85610; 99211 ==

== ENCOUNTER 2023-04-10 07:57 | Outpatient (AMB) | payer MEDICARE, SELFPAY ==
--- NOTE | 2023-04-10 08:05 | MHC.OFFVISCO ---
Intake Intake Visit Reasons: Anticoagulation Allergies No Known Allergies [No Known Allergies*] Allergy (Verified 04/10/23 07:57) Medication List - Last Reconciled 04/10/23 by Adriane Schmidt RN atorvastatin 20 mg PO DAILY cilostazol 100 mg PO .qd fluticasone propionate 50 mcg/actuation 1 spray intranasal BID hydrochlorothiazide 25 mg PO DAILY metoprolol succinate ER 25 mg PO DAILY nifedipine ER 60 mg PO DAILY umeclidinium 62.5 mcg/actuation (Incruse Ellipta) 1 inh inhalation DAILY warfarin 5 mg See Protocol PO DAILY Nursing Note INR: 2.6 in therapeutic range Medications and supplements reviewed No changes in health, diet, medications, or supplements, Denies any signs and symptoms of bleeding or bruising or clotting. Bleeding, bruising, clotting discussed Nutritional guidance given- keep balancing diet Dose: 2.5mg x 2 days/ 5mg x 5 days F/U INR: 2 weeks Patient verbalizes understanding of instructions given Anti-Coag Initial Assessment Social Hx Patient Tobacco Use Status: Current someday Tobacco user Tobacco use type: Cigarette alcohol intake: former Alcohol intake frequency: former alcohol drinker Cardiovascular Hx: HTN, [place], Arrhythmias and Other (PVD recent bilateral femoral stents) Lung Disease HX: COPD and Emphysema Blood Disorder Hx: Hyperlipidemia Cancer HX: No Psych. Illness/Depression: No Coding Level of Care Code Est Patient Level 1 Results AMB INR Fingerstick AMB INR Fingerstick 2.6 Last Edit by Adriane Schmidt RN on 04/10/23 08:06 manual entry failed interfacing ongoing
[2023-04-10 08:13] LABS: Prothrombin Time Whole Bld POC 31.8 sec (11.1-13.5); ~PT, ~INR - Anti Coag Clinic 2.6 (0.9-1.1)
== END 2023-04-10 08:11 | disposition home or self-care (01) ==
LOC: HO.ACS 07:57
PROVIDERS: PCP Internal Medicine; Visit Provider Internal Medicine
DX: Z79.01 Long term (current) use of anticoagulants (principal)

== ENCOUNTER → 2023-04-10 07:57 | Outpatient (BNVA) | payer MEDICARE, SELFPAY | PROVIDERS: PCP Internal Medicine; Visit Provider Internal Medicine | DX: I48.0 Paroxysmal atrial fibrillation (principal); Z79.01 Long term (current) use of anticoagulants; Z51.81 Encounter for therapeutic drug level monitoring | CPT/HCPCS: 85610; 99211 ==

== ENCOUNTER 2023-04-24 08:06 | Outpatient (AMB) | payer MEDICARE, SELFPAY ==
[2023-04-24 08:16] LABS: Prothrombin Time Whole Bld POC 32.2 sec (11.1-13.5); ~PT, ~INR - Anti Coag Clinic 2.7 (0.9-1.1)
--- NOTE | 2023-04-24 08:18 | MHC.OFFVISCO ---
Intake Intake Visit Reasons: Anticoagulation Allergies No Known Allergies [No Known Allergies*] Allergy (Verified 04/24/23 08:11) Medication List - Last Reconciled 04/24/23 by Adriane Schmidt RN atorvastatin 20 mg PO DAILY cilostazol 100 mg PO .qd fluticasone propionate 50 mcg/actuation 1 spray intranasal BID hydrochlorothiazide 25 mg PO DAILY metoprolol succinate ER 25 mg PO DAILY nifedipine ER 60 mg PO DAILY umeclidinium 62.5 mcg/actuation (Incruse Ellipta) 1 inh inhalation DAILY warfarin 5 mg See Protocol PO DAILY Nursing Note INR: 2.7 in therapeutic range Medications and supplements reviewed No changes in health, diet, medications, or supplements, Denies any signs and symptoms of bleeding or bruising or clotting. Bleeding, bruising, clotting discussed Nutritional guidance given Dose: SAME 2.5MG X 2 DAYS/ 5MG X 5 DAYS F/U INR: 2 WEEKS Patient verbalizes understanding of instructions given Anti-Coag Initial Assessment Social Hx Patient Tobacco Use Status: Current someday Tobacco user Tobacco use type: Cigarette alcohol intake: former Alcohol intake frequency: former alcohol drinker Cardiovascular Hx: HTN, [place], Arrhythmias and Other (PVD recent bilateral femoral stents) Lung Disease HX: COPD and Emphysema Blood Disorder Hx: Hyperlipidemia Cancer HX: No Psych. Illness/Depression: No Coding Level of Care Code Est Patient Level 1 Diagnoses Current use of anticoagulant therapy Z79.01 Assessment & Plan Assessment & Plan (1) Current use of anticoagulant therapy: Code(s): Z79.01 - group home (current) use of anticoagulants Category: Medical
== END 2023-04-24 08:21 | disposition home or self-care (01) ==
LOC: HO.ACS 08:06
PROVIDERS: PCP Internal Medicine; Visit Provider Internal Medicine
DX: Z79.01 Long term (current) use of anticoagulants (principal)

== ENCOUNTER → 2023-04-24 08:06 | Outpatient (BNVA) | payer MEDICARE, SELFPAY | PROVIDERS: PCP Internal Medicine; Visit Provider Internal Medicine | DX: I48.0 Paroxysmal atrial fibrillation (principal); Z79.01 Long term (current) use of anticoagulants; Z51.81 Encounter for therapeutic drug level monitoring | CPT/HCPCS: 85610; 99211 ==

== ENCOUNTER 2023-05-09 08:18 | Outpatient (AMB) | payer MEDICARE, SELFPAY ==
[2023-05-09 08:26] LABS: Prothrombin Time Whole Bld POC 20.6 sec (11.1-13.5); ~PT, ~INR - Anti Coag Clinic 1.7 (0.9-1.1)
--- NOTE | 2023-05-09 08:26 | MHC.OFFVISCO ---
Intake Intake Visit Reasons: Anticoagulation Allergies No Known Allergies [No Known Allergies*] Allergy (Verified 05/09/23 08:21) Medication List - Last Reconciled 05/09/23 by Anahy Deng RN atorvastatin 20 mg PO DAILY cilostazol 100 mg PO .qd fluticasone propionate 50 mcg/actuation 1 spray intranasal BID hydrochlorothiazide 25 mg PO DAILY metoprolol succinate ER 25 mg PO DAILY nifedipine ER 60 mg PO DAILY umeclidinium 62.5 mcg/actuation (Incruse Ellipta) 1 inh inhalation DAILY warfarin 5 mg See Protocol PO DAILY Nursing Note INR 1.7- out of therapeutic range of 2-3 unsure if missed a dose Medications and supplements reviewed Patient status: no c.o Medications or supplements: no changes Diet: same Denies any signs and symptoms of bleeding or clotting or unusual bruising Bleeding, bruising, clotting discussed Nutritional guidance given: no greens for 2 days, eat a red to raise Dose: 5mg today and tomm then cont reg 5mg x 5, 2.5mg x 2 F/U INR Date : 2 weeks? Patient verbalizing understanding of instructions given. Anti-Coag Initial Assessment Social Hx Patient Tobacco Use Status: Current someday Tobacco user Tobacco use type: Cigarette alcohol intake: former Alcohol intake frequency: former alcohol drinker Cardiovascular Hx: HTN, [place], Arrhythmias and Other (PVD recent bilateral femoral stents) Lung Disease HX: COPD and Emphysema Blood Disorder Hx: Hyperlipidemia Cancer HX: No Psych. Illness/Depression: No Coding Level of Care Code Est Patient Level 1 Diagnoses Current use of anticoagulant therapy Z79.01 Assessment & Plan Assessment & Plan (1) Current use of anticoagulant therapy: Code(s): Z79.01 - [facility] (current) use of anticoagulants Category: Medical
== END 2023-05-09 08:35 | disposition home or self-care (01) ==
LOC: HO.ACS 08:18
PROVIDERS: PCP Internal Medicine; Visit Provider Internal Medicine
DX: Z79.01 Long term (current) use of anticoagulants (principal)

== ENCOUNTER → 2023-05-09 08:18 | Outpatient (BNVA) | payer MEDICARE, SELFPAY | PROVIDERS: PCP Internal Medicine; Visit Provider Internal Medicine | DX: I48.0 Paroxysmal atrial fibrillation (principal); Z79.01 Long term (current) use of anticoagulants; Z51.81 Encounter for therapeutic drug level monitoring | CPT/HCPCS: 85610; 99211 ==

== ENCOUNTER 2023-05-23 08:10 | Outpatient (AMB) | payer MEDICARE, SELFPAY ==
--- NOTE | 2023-05-23 08:31 | MHC.OFFVISCO ---
Intake Intake Visit Reasons: Anticoagulation Allergies No Known Allergies [No Known Allergies*] Allergy (Verified 05/23/23 08:20) Medication List - Last Reconciled 05/23/23 by Paige Ocasio RN atorvastatin 20 mg PO DAILY cilostazol 100 mg PO .qd fluticasone propionate 50 mcg/actuation 1 spray intranasal BID hydrochlorothiazide 25 mg PO DAILY metoprolol succinate ER 25 mg PO DAILY nifedipine ER 60 mg PO DAILY umeclidinium 62.5 mcg/actuation (Incruse Ellipta) 1 inh inhalation DAILY warfarin 5 mg See Protocol PO DAILY Nursing Note NO CP,SOB,DIET/MED CHANGES,FALLS OR SX OF BLEEDING. CONTINUE PRESENT DOSE AND FOLLOW-UP IN 3 WEEKS GOOD UNBDERSTANFDING OF DOSING INSTR. Anti-Coag Initial Assessment Social Hx Patient Tobacco Use Status: Current someday Tobacco user Tobacco use type: Cigarette alcohol intake: former Alcohol intake frequency: former alcohol drinker Cardiovascular Hx: HTN, [place], Arrhythmias and Other (PVD recent bilateral femoral stents) Lung Disease HX: COPD and Emphysema Blood Disorder Hx: Hyperlipidemia Cancer HX: No Psych. 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
[2023-05-23 08:34] LABS: Prothrombin Time Whole Bld POC 28.3 sec (11.1-13.5); ~PT, ~INR - Anti Coag Clinic 2.4 (0.9-1.1)
== END 2023-05-23 08:34 | disposition home or self-care (01) ==
LOC: HO.ACS 08:10
PROVIDERS: PCP Internal Medicine; Visit Provider Internal Medicine
DX: Z79.01 Long term (current) use of anticoagulants (principal)

== ENCOUNTER → 2023-05-23 08:10 | Outpatient (BNVA) | payer MEDICARE, SELFPAY | PROVIDERS: PCP Internal Medicine; Visit Provider Internal Medicine | DX: I48.0 Paroxysmal atrial fibrillation (principal); Z79.01 Long term (current) use of anticoagulants; Z51.81 Encounter for therapeutic drug level monitoring | CPT/HCPCS: 85610; 99211 ==

== ENCOUNTER 2023-06-12 08:01 | Outpatient (AMB) | payer MEDICARE, SELFPAY ==
--- NOTE | 2023-06-12 08:06 | MHC.OFFVISCO ---
Intake Intake Visit Reasons: Anticoagulation Allergies No Known Allergies [No Known Allergies*] Allergy (Verified 06/12/23 08:03) Medication List - Last Reconciled 06/12/23 by Anahy Deng RN atorvastatin 20 mg PO DAILY cilostazol 100 mg PO .qd fluticasone propionate 50 mcg/actuation 1 spray intranasal BID hydrochlorothiazide 25 mg PO DAILY metoprolol succinate ER 25 mg PO DAILY nifedipine ER 60 mg PO DAILY umeclidinium 62.5 mcg/actuation (Incruse Ellipta) 1 inh inhalation DAILY warfarin 5 mg See Protocol PO DAILY Nursing Note INR: 2.2- in therapeutic range of 2-3 Medications and supplements reviewed- pt states no changes No changes in health, diet, medications, or supplements, Denies any signs and symptoms of bleeding or bruising or clotting. Bleeding, bruising, clotting discussed Nutritional guidance given Dose: 2.5mg x 2, 5mg x 5 F/U INR: 3 weeks Patient verbalizes understanding of instructions given Anti-Coag Initial Assessment Social Hx Patient Tobacco Use Status: Current someday Tobacco user Tobacco use type: Cigarette alcohol intake: former Alcohol intake frequency: former alcohol drinker Cardiovascular Hx: HTN, [place], Arrhythmias and Other (PVD recent bilateral femoral stents) Lung Disease HX: COPD and Emphysema Blood Disorder Hx: Hyperlipidemia Cancer HX: No Psych. 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
[2023-06-12 08:08] LABS: Prothrombin Time Whole Bld POC 25.9 sec (11.1-13.5); ~PT, ~INR - Anti Coag Clinic 2.2 (0.9-1.1)
== END 2023-06-12 08:16 | disposition home or self-care (01) ==
LOC: HO.ACS 08:01
PROVIDERS: PCP Internal Medicine; Visit Provider Internal Medicine
DX: Z79.01 Long term (current) use of anticoagulants (principal)

== ENCOUNTER → 2023-06-12 08:01 | Outpatient (BNVA) | payer MEDICARE, SELFPAY | PROVIDERS: PCP Internal Medicine; Visit Provider Internal Medicine | DX: I48.0 Paroxysmal atrial fibrillation (principal); Z79.01 Long term (current) use of anticoagulants; Z51.81 Encounter for therapeutic drug level monitoring | CPT/HCPCS: 85610; 99211 ==

== ENCOUNTER 2023-07-04 08:00 | Outpatient (AMB) | payer MEDICARE, SELFPAY ==
--- NOTE | 2023-07-04 08:22 | MHC.OFFVISCO ---
Intake Intake Visit Reasons: Anticoagulation Allergies No Known Allergies [No Known Allergies*] Allergy (Verified 07/04/23 08:08) Medication List - Last Reconciled 07/04/23 by Adriane Schmidt RN atorvastatin 20 mg PO DAILY cilostazol 100 mg PO .qd fluticasone propionate 50 mcg/actuation 1 spray intranasal BID hydrochlorothiazide 25 mg PO DAILY metoprolol succinate ER 25 mg PO DAILY nifedipine ER 60 mg PO DAILY umeclidinium 62.5 mcg/actuation (Incruse Ellipta) 1 inh inhalation DAILY warfarin 5 mg See Protocol PO DAILY Nursing Note INR 1.5 out of therapeutic range Medications and supplements reviewed Patient status: Pt has been eating a lot more greens, had strong vit k foods, plus had 2 days of pea soup pt had a slight bloody nose for a few seconds this week, has a hx of nasal cataerization 7-10 years ago, enc hydratation, saline nasal spray or [place] moisturizing nasal spray. Medications or supplements: using flonase a little more this past week also for runny nose- may have dried out nose Diet: had a lot of greens Denies any signs and symptoms of bleeding or clotting or unusual bruising - will go to ER with any c/p sob or stroke like symptoms. Bleeding, bruising, clotting discussed Nutritional guidance given: avoid greens x 3 days, review food list weekly, eat foods to help raise the INR toda Dose: 7.5mg today then increase weekly dose 5mg x 6 days/ 2.5mg x 1 day F/U INR Date: f/u 5 days 07/09/23 ?? Patient verbalizing understanding of instructions given. 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 [phone] t/c to PCP spoke with Ramona regarding pt status and plan of care and will convey msg to PCP Anti-Coag Initial Assessment Social Hx Patient Tobacco Use Status: Current someday Tobacco user Tobacco use type: Cigarette alcohol intake: former Alcohol intake frequency: former alcohol drinker Cardiovascular Hx: HTN, [place], Arrhythmias and Other (PVD recent bilateral femoral stents) Lung Disease HX: COPD and Emphysema Blood Disorder Hx: Hyperlipidemia Cancer HX: No Psych. 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
[2023-07-04 08:23] LABS: Prothrombin Time Whole Bld POC 17.4 sec (11.1-13.5); ~PT, ~INR - Anti Coag Clinic 1.5 (0.9-1.1)
== END 2023-07-04 08:44 | disposition home or self-care (01) ==
LOC: HO.ACS 08:00
PROVIDERS: PCP Internal Medicine; Visit Provider Internal Medicine
DX: Z79.01 Long term (current) use of anticoagulants (principal)

== ENCOUNTER → 2023-07-04 08:00 | Outpatient (BNVA) | payer MEDICARE, SELFPAY | PROVIDERS: PCP Internal Medicine; Visit Provider Internal Medicine | DX: I48.0 Paroxysmal atrial fibrillation (principal); Z79.01 Long term (current) use of anticoagulants; Z51.81 Encounter for therapeutic drug level monitoring | CPT/HCPCS: 85610; 99211 ==

== ENCOUNTER 2023-07-09 08:15 | Outpatient (AMB) | payer MEDICARE, SELFPAY ==
--- NOTE | 2023-07-09 08:31 | MHC.OFFVISCO ---
Intake Intake Visit Reasons: Anticoagulation Allergies No Known Allergies [No Known Allergies*] Allergy (Verified 07/09/23 08:21) Medication List - Last Reconciled 07/09/23 by Britany Flores RN atorvastatin 20 mg PO DAILY cilostazol 100 mg PO .qd fluticasone propionate 50 mcg/actuation 1 spray intranasal BID hydrochlorothiazide 25 mg PO DAILY metoprolol succinate ER 25 mg PO DAILY nifedipine ER 60 mg PO DAILY umeclidinium 62.5 mcg/actuation (Incruse Ellipta) 1 inh inhalation DAILY warfarin 5 mg See Protocol PO DAILY Nursing Note Amb to [facility] feeling well Medications and supplements reviewed No changes in health, diet, medications, or supplements Denies any unusual signs and symptoms of bruising, bleeding Denies any new Chest pain, SOB, or clotting INR: 3.0 in therapeutic range Nutritional guidance given: balance greens and reds in diet, be consistent Dose: continue usual dosing;2.5mg x 2 days and 5mg x 5 days F/U INR: 2 weeks (likes early am appt) cataract surgery in August no warfarin hold Patient verbalizes understanding of instructions given with accurate read back/ teach back of dosing Anti-Coag Initial Assessment Social Hx Patient Tobacco Use Status: Current someday Tobacco user Tobacco use type: Cigarette alcohol intake: former Alcohol intake frequency: former alcohol drinker Cardiovascular Hx: HTN, [place], Arrhythmias and Other (PVD recent bilateral femoral stents) Lung Disease HX: COPD and Emphysema Blood Disorder Hx: Hyperlipidemia Cancer HX: No Psych. Illness/Depression: No Coding Level of Care Code Est Patient Level 1 Diagnoses Current use of anticoagulant therapy Z79.01 Time Spent (min) 15 Assessment & Plan Assessment & Plan (1) Current use of anticoagulant therapy: Code(s): Z79.01 - prison (current) use of anticoagulants Category: Medical
== END 2023-07-09 08:34 | disposition home or self-care (01) ==
LOC: HO.ACS 08:15
PROVIDERS: PCP Internal Medicine; Visit Provider Internal Medicine
DX: Z79.01 Long term (current) use of anticoagulants (principal)

== ENCOUNTER → 2023-07-09 08:15 | Outpatient (BNVA) | payer MEDICARE, SELFPAY | PROVIDERS: PCP Internal Medicine; Visit Provider Internal Medicine | DX: I48.0 Paroxysmal atrial fibrillation (principal); Z79.01 Long term (current) use of anticoagulants; Z51.81 Encounter for therapeutic drug level monitoring | CPT/HCPCS: 85610; 99211 ==

== ENCOUNTER 2023-07-25 08:04 | Outpatient (AMB) | payer MEDICARE, SELFPAY ==
--- NOTE | 2023-07-25 08:13 | MHC.OFFVISCO ---
Intake Intake Visit Reasons: Anticoagulation Allergies No Known Allergies [No Known Allergies*] Allergy (Verified 07/25/23 08:06) Medication List - Last Reconciled 07/25/23 by Anahy Deng RN atorvastatin 20 mg PO DAILY cilostazol 100 mg PO .qd fluticasone propionate 50 mcg/actuation 1 spray intranasal BID hydrochlorothiazide 25 mg PO DAILY metoprolol succinate ER 25 mg PO DAILY nifedipine ER 60 mg PO DAILY umeclidinium 62.5 mcg/actuation (Incruse Ellipta) 1 inh inhalation DAILY warfarin 5 mg See Protocol PO DAILY Nursing Note INR: 2.6- in therapeutic range of 2-3 Medications and supplements reviewed- no changes No changes in health, diet, medications, or supplements, Denies any signs and symptoms of bleeding or bruising or clotting. Bleeding, bruising, clotting discussed Nutritional guidance given Dose: 2.5mg x 2, 5mg x 5 F/U INR: 2 weeks Patient verbalizes understanding of instructions given pt states cataract surg right eye on 08/13/23 pt with c.o persistent cough, pilar at night. pcp aware Anti-Coag Initial Assessment Social Hx Patient Tobacco Use Status: Current someday Tobacco user Tobacco use type: Cigarette alcohol intake: former Alcohol intake frequency: former alcohol drinker Cardiovascular Hx: HTN, [place], Arrhythmias and Other (PVD recent bilateral femoral stents) Lung Disease HX: COPD and Emphysema Blood Disorder Hx: Hyperlipidemia Cancer HX: No Psych. 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
[2023-07-25 08:14] LABS: Prothrombin Time Whole Bld POC 31.1 sec (11.1-13.5); ~PT, ~INR - Anti Coag Clinic 2.6 (0.9-1.1)
== END 2023-07-25 08:20 | disposition home or self-care (01) ==
LOC: HO.ACS 08:04
PROVIDERS: PCP Internal Medicine; Visit Provider Internal Medicine
DX: Z79.01 Long term (current) use of anticoagulants (principal)

== ENCOUNTER 2023-07-25 08:04 | Outpatient (REF) | payer MEDICARE, SELFPAY ==
[2023-07-25 14:45] LABS: Influenza A PCR NEGATIVE (Negative); Influenza B PCR NEGATIVE (Negative); Resp Syncy Virus RNA Qual PCR NEGATIVE (Negative); SARS COV2 PCR INHOUSE NEGATIVE (Negative)
== END 2023-07-25 08:05 | disposition home or self-care (01) ==
LOC: HO.LAB 08:04
PROVIDERS: Nurse Practitioner Family; PCP Internal Medicine; Visit Provider Internal Medicine
DX: R05.9 Cough, unspecified (principal); I48.0 Paroxysmal atrial fibrillation; Z79.01 Long term (current) use of anticoagulants; Z51.81 Encounter for therapeutic drug level monitoring; Z11.52 Encounter for screening for COVID-19; Z20.828 Contact with and (suspected) exposure to other viral communicable diseases
CPT/HCPCS: 0241U; 85610; 99211

== ENCOUNTER 2023-07-25 09:22 | Outpatient (AMB) | payer MEDICARE, SELFPAY ==
--- NOTE | 2023-07-25 09:31 | MHC.OFFWIV ---
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 Patient Tobacco Use Status: Current someday Tobacco user Allergies No Known Allergies [No Known Allergies*] Allergy (Verified 07/25/23 09:33) Do you need a note to return to daycare/school/sports/work: No HPI HPI Comments History of Present Illness Details 78 y/o male patient who presents to walk in clinic with c/o cough and post nasal drip x 1 week. Denies any recent sick contacts. Denies fevers, chills, nausea or vomiting. PFSH Medical History AAA (abdominal aortic aneurysm) Cardiac arrhythmia, unspecified Carotid disease, bilateral COPD (chronic obstructive pulmonary disease) [place] (hard of hearing) HTN (hypertension) Hypercholesteremia Myocardial infarct Neoplasm Paroxysmal atrial fibrillation PVCs (premature ventricular contractions) PVD (peripheral vascular disease) Surgical History History of shoulder surgery Family History Mother Myocardial infarct Sister Cancer Father No problems noted. 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 [employer] Current occupational exposures/hazards: No Review of Systems Const All systems reviewed & are unremarkable except as noted in HPI and below Physical Exam Vital Signs: Last Vital Signs Temp 98.5 F 07/25/23 09:32 Pulse 78 07/25/23 09:32 BP 124/80 07/25/23 09:32 Pulse Ox 98 07/25/23 09:32 Oxygen Delivery Method Room Air 07/25/23 09:32 Const General: comfortable and no acute distress Orientation/consciousness: patient oriented x3 HEENT Head: Yes normocephalic Ears: external ears normal and TM's normal bilaterally General nose exam: Abnormal mucous membranes and turbinates present boggy and erythematous and Nasal discharge present Face and sinus: Yes sinuses nontender Mouth: moist mucous membranes Throat: Yes posterior oropharynx normal Resp Effort & Inspection: able to speak in complete sentences Auscultation: clear to auscultation bilaterally, no crackles, no rales, no rhonchi and no wheezes Cardio Rate: regular rate Rhythm: regular rhythm Neuro General: patient oriented x3 Assessment & Plan Assessment & Plan (1) Cough in adult: Code(s): R05.9 - Cough, unspecified Plan: - OTC remedies - Acetaminophen for pain relief. - Rest and hydrate with warm fluids. Orders: Orders SARS-CoV2/FLU/RSV Today R05.9 - Cough, unspecified Medications: New benzonatate 100 mg PO TID 30 caps 0RF R05.9 - Cough, unspecified cetirizine (Zyrtec) 10 mg PO DAILY PRN 30 caps 0RF allergy symptoms R05.9 - Cough, unspecified Coding Level of Care Code Est Pt Level 3 (78464) Diagnoses Cough in adult R05.9 Time Spent (min) 15
[2023-07-25 09:32] VITALS: BP 124/80; PULSE 78; TEMP 36.9; O2SAT 98
== END 2023-07-25 10:00 | disposition home or self-care (01) ==
PROVIDERS: PCP Internal Medicine; Visit Provider Nurse Practitioner Family
DX: R05.9 Cough, unspecified (principal)
CPT/HCPCS: 99213

== ENCOUNTER 2023-08-01 08:50 | Outpatient (AMB) | payer MEDICARE, SELFPAY ==
[2023-08-01 08:56] LABS: Prothrombin Time Whole Bld POC 31.5 sec (11.1-13.5); ~PT, ~INR - Anti Coag Clinic 2.6 (0.9-1.1)
--- NOTE | 2023-08-01 09:05 | MHC.OFFVISCO ---
Intake Intake Visit Reasons: Anticoagulation Allergies No Known Allergies [No Known Allergies*] Allergy (Verified 08/01/23 08:52) Medication List - Last Reconciled 08/01/23 by Paige Ocasio RN apixaban 5 mg PO BID atorvastatin 20 mg PO DAILY benzonatate 100 mg PO TID cetirizine (Zyrtec) 10 mg PO DAILY PRN cilostazol 100 mg PO .qd fluticasone propionate 50 mcg/actuation 1 spray intranasal BID hydrochlorothiazide 25 mg PO DAILY metoprolol succinate ER 25 mg PO DAILY nifedipine ER 60 mg PO DAILY umeclidinium 62.5 mcg/actuation (Incruse Ellipta) 1 inh inhalation DAILY warfarin 5 mg See Protocol PO DAILY Nursing Note PT.HAS BEEN TAKING ZYRTEC AND BENZONATATE FOR 1 WEEK (URI SX) PT STATES THAT HE HAD A SLIGHT NOSEBLEED THIS MORNING WHICH CEASED QUICKLY. PT.STATES THAT HE IS FEELING BETTER AND WILL LIKELY DECREASE USE. TO SPEAK WITH PCP TODAY RE D/C. CONTINUE PRESENT DOSE AND FOLLOW-UP IN 2 WEEKS. GOOD UNDERSTANDING OF DOSING INSTR. Anti-Coag Initial Assessment Social Hx Patient Tobacco Use Status: Current someday Tobacco user Tobacco use type: Cigarette alcohol intake: former Alcohol intake frequency: former alcohol drinker Cardiovascular Hx: HTN, [place], Arrhythmias and Other (PVD recent bilateral femoral stents) Lung Disease HX: COPD and Emphysema Blood Disorder Hx: Hyperlipidemia Cancer HX: No Psych. 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
== END 2023-08-01 09:10 | disposition home or self-care (01) ==
LOC: HO.ACS 08:50
PROVIDERS: PCP Internal Medicine; Visit Provider Internal Medicine
DX: Z79.01 Long term (current) use of anticoagulants (principal)

== ENCOUNTER → 2023-08-01 08:50 | Outpatient (BNVA) | payer MEDICARE, SELFPAY | PROVIDERS: PCP Internal Medicine; Visit Provider Internal Medicine | DX: I48.0 Paroxysmal atrial fibrillation (principal); Z79.01 Long term (current) use of anticoagulants; Z51.81 Encounter for therapeutic drug level monitoring | CPT/HCPCS: 85610; 99211 ==

== ENCOUNTER 2023-08-15 08:00 | Outpatient (AMB) | payer MEDICARE, SELFPAY ==
--- NOTE | 2023-08-15 08:16 | MHC.OFFVISCO ---
Intake Intake Visit Reasons: Anticoagulation Allergies No Known Allergies [No Known Allergies*] Allergy (Verified 08/15/23 08:09) Medication List - Last Reconciled 08/15/23 by Anahy Deng RN apixaban 5 mg PO BID atorvastatin 20 mg PO DAILY benzonatate 100 mg PO TID cetirizine (Zyrtec) 10 mg PO DAILY PRN cilostazol 100 mg PO .qd fluticasone propionate 50 mcg/actuation 1 spray intranasal BID hydrochlorothiazide 25 mg PO DAILY metoprolol succinate ER 25 mg PO DAILY nifedipine ER 60 mg PO DAILY umeclidinium 62.5 mcg/actuation (Incruse Ellipta) 1 inh inhalation DAILY warfarin 5 mg See Protocol PO DAILY Nursing Note INR: 2.5- in therapeutic range of 2-3 Medications and supplements reviewed- eye drops pre/post cataract No changes in health, diet, medications, or supplements, Denies any signs and symptoms of bleeding or bruising or clotting. Bleeding, bruising, clotting discussed Nutritional guidance given Dose: 5mg x 5, 2.5mg x 2 F/U INR: pt req 3 weeks Patient verbalizes understanding of instructions given pt s/p cataract surgery on 08/13/23 Anti-Coag Initial Assessment Social Hx Patient Tobacco Use Status: Current someday Tobacco user Tobacco use type: Cigarette alcohol intake: former Alcohol intake frequency: former alcohol drinker Cardiovascular Hx: HTN, [place], Arrhythmias and Other (PVD recent bilateral femoral stents) Lung Disease HX: COPD and Emphysema Blood Disorder Hx: Hyperlipidemia Cancer HX: No Psych. Illness/Depression: No Coding Level of Care Code Est Patient Level 1 Diagnoses Current use of anticoagulant therapy Z79.01 Results AMB INR Fingerstick AMB INR Fingerstick 2.5 Last Edit by Anahy Deng RN on 08/15/23 08:17 Assessment & Plan Assessment & Plan (1) Current use of anticoagulant therapy: Code(s): Z79.01 - [facility] (current) use of anticoagulants Category: Medical Medications: Discontinued apixaban Discontinued Reason: Patient no longer taking 5 mg PO BID
[2023-08-15 08:21] LABS: Prothrombin Time Whole Bld POC 29.8 sec (11.1-13.5); ~PT, ~INR - Anti Coag Clinic 2.5 (0.9-1.1)
== END 2023-08-15 08:28 | disposition home or self-care (01) ==
LOC: HO.ACS 08:00
PROVIDERS: PCP Internal Medicine; Visit Provider Internal Medicine
DX: Z79.01 Long term (current) use of anticoagulants (principal)

== ENCOUNTER → 2023-08-15 08:00 | Outpatient (BNVA) | payer MEDICARE, SELFPAY | PROVIDERS: PCP Internal Medicine; Visit Provider Internal Medicine | DX: I48.0 Paroxysmal atrial fibrillation (principal); Z79.01 Long term (current) use of anticoagulants; Z51.81 Encounter for therapeutic drug level monitoring | CPT/HCPCS: 85610; 99211 ==

== ENCOUNTER 2023-09-04 07:56 | Outpatient (AMB) | payer MEDICARE, SELFPAY ==
--- NOTE | 2023-09-04 08:10 | MHC.OFFVISCO ---
Intake Intake Visit Reasons: Anticoagulation Allergies No Known Allergies [No Known Allergies*] Allergy (Verified 09/04/23 08:05) Medication List - Last Reconciled 09/04/23 by Anahy Deng RN atorvastatin 20 mg PO DAILY benzonatate 100 mg PO TID cetirizine (Zyrtec) 10 mg PO DAILY PRN cilostazol 100 mg PO .qd fluticasone propionate 50 mcg/actuation 1 spray intranasal BID hydrochlorothiazide 25 mg PO DAILY metoprolol succinate ER 25 mg PO DAILY nifedipine ER 60 mg PO DAILY umeclidinium 62.5 mcg/actuation (Incruse Ellipta) 1 inh inhalation DAILY warfarin 5 mg See Protocol PO DAILY Nursing Note INR: 2.9- in therapeutic range of 2-3 Medications and supplements reviewed- no changes pt s/p cataract surg 08/13/23- finished eye drops No changes in health, diet, medications, or supplements, Denies any signs and symptoms of bleeding or bruising or clotting. Bleeding, bruising, clotting discussed Nutritional guidance given Dose: 2.5mg x 2, 5mg x 5 F/U INR: 4 weeks Patient verbalizes understanding of instructions given Anti-Coag Initial Assessment Social Hx Patient Tobacco Use Status: Current someday Tobacco user Tobacco use type: Cigarette alcohol intake: former Alcohol intake frequency: former alcohol drinker Cardiovascular Hx: HTN, [place], Arrhythmias and Other (PVD recent bilateral femoral stents) Lung Disease HX: COPD and Emphysema Blood Disorder Hx: Hyperlipidemia Cancer HX: No Psych. Illness/Depression: No Coding Level of Care Code Est Patient Level 1 Diagnoses Current use of anticoagulant therapy Z79.01 Results AMB INR Fingerstick AMB INR Fingerstick 2.9 Last Edit by Anahy Deng RN on 09/04/23 08:11 Assessment & Plan Assessment & Plan (1) Current use of anticoagulant therapy: Code(s): Z79.01 - penitentiary (current) use of anticoagulants Category: Medical
[2023-09-04 08:11] LABS: Prothrombin Time Whole Bld POC 35.1 sec (11.1-13.5); ~PT, ~INR - Anti Coag Clinic 2.9 (0.9-1.1)
== END 2023-09-04 08:16 | disposition home or self-care (01) ==
LOC: HO.ACS 07:56
PROVIDERS: PCP Internal Medicine; Visit Provider Internal Medicine
DX: Z79.01 Long term (current) use of anticoagulants (principal)

== ENCOUNTER → 2023-09-04 07:56 | Outpatient (BNVA) | payer MEDICARE, SELFPAY | PROVIDERS: PCP Internal Medicine; Visit Provider Internal Medicine | DX: I48.0 Paroxysmal atrial fibrillation (principal); Z51.81 Encounter for therapeutic drug level monitoring; Z79.01 Long term (current) use of anticoagulants | CPT/HCPCS: 85610; 99211 ==

== ENCOUNTER 2023-10-01 08:04 | Outpatient (AMB) | payer MEDICARE, SELFPAY ==
[2023-10-01 08:13] LABS: Prothrombin Time Whole Bld POC 49.5 sec (11.1-13.5); ~PT, ~INR - Anti Coag Clinic 4.1 (0.9-1.1)
--- NOTE | 2023-10-01 08:23 | MHC.OFFVISCO ---
Intake Intake Visit Reasons: Anticoagulation Allergies No Known Allergies [No Known Allergies*] Allergy (Verified 10/01/23 08:07) Medication List - Last Reconciled 10/01/23 by Britany Flores RN atorvastatin 20 mg PO DAILY benzonatate 100 mg PO TID cetirizine (Zyrtec) 10 mg PO DAILY PRN cilostazol 100 mg PO .qd fluticasone propionate 50 mcg/actuation 1 spray intranasal BID hydrochlorothiazide 25 mg PO DAILY metoprolol succinate ER 25 mg PO DAILY nifedipine ER 60 mg PO DAILY umeclidinium 62.5 mcg/actuation (Incruse Ellipta) 1 inh inhalation DAILY warfarin 5 mg See Protocol PO DAILY Nursing Note Amb to ACS feeling well Medications and supplements reviewed, noted pt normally takes 2.5mg on Tuesdays and , not Sunday and as indicated by our dosing sheet No changes in health, diet, medications, or supplements, Denies any signs and symptoms of bleeding, bruising, or clotting. INR 4.1 above therapeutic range pt thinks he may not of had many greens this past week Dosing plan- to take 2.5mg today (vs 5mg) take usual 2.5mg tomorrow and continue usual (2.5 x 2 days and 5mg x 5 days) dosing sheet corrected as to how pt takes his arfarin Instructed to have good greens- brocolli, asparagus, brussells sprouts today and tomorrow then balance and be consistent discussed with pt bleed risk with elevated INR F/U INR: 2 weeks Patient verbalizes understanding of instructions given Anti-Coag Initial Assessment Social Hx Patient Tobacco Use Status: Current someday Tobacco user Tobacco use type: Cigarette alcohol intake: former Alcohol intake frequency: former alcohol drinker Cardiovascular Hx: HTN, [place], Arrhythmias and Other (PVD recent bilateral femoral stents) Lung Disease HX: COPD and Emphysema Blood Disorder Hx: Hyperlipidemia Cancer HX: No Psych. Illness/Depression: No Coding Level of Care Code Est Patient Level 1 Diagnoses Current use of anticoagulant therapy Z79.01 Time Spent (min) 15 Assessment & Plan Assessment & Plan (1) Current use of anticoagulant therapy: Code(s): Z79.01 - [facility] (current) use of anticoagulants Category: Medical
== END 2023-10-01 08:32 | disposition home or self-care (01) ==
LOC: HO.ACS 08:04
PROVIDERS: PCP Internal Medicine; Visit Provider Internal Medicine
DX: Z79.01 Long term (current) use of anticoagulants (principal)

== ENCOUNTER → 2023-10-01 08:04 | Outpatient (BNVA) | payer MEDICARE, SELFPAY | PROVIDERS: PCP Internal Medicine; Visit Provider Internal Medicine | DX: I48.0 Paroxysmal atrial fibrillation (principal); Z51.81 Encounter for therapeutic drug level monitoring; Z79.01 Long term (current) use of anticoagulants | CPT/HCPCS: 85610; 99211 ==

== ENCOUNTER 2023-10-15 08:02 | Outpatient (AMB) | payer MEDICARE, SELFPAY ==
[2023-10-15 08:09] LABS: Prothrombin Time Whole Bld POC 49.6 sec (11.1-13.5); ~PT, ~INR - Anti Coag Clinic 4.1 (0.9-1.1)
--- NOTE | 2023-10-15 08:24 | MHC.OFFVISCO ---
Intake Intake Visit Reasons: Anticoagulation Allergies No Known Allergies [No Known Allergies*] Allergy (Verified 10/15/23 08:03) Medication List - Last Reconciled 10/15/23 by Britany Teran RN atorvastatin 20 mg PO DAILY benzonatate 100 mg PO TID cetirizine (Zyrtec) 10 mg PO DAILY PRN cilostazol 100 mg PO .qd fluticasone propionate 50 mcg/actuation 1 spray intranasal BID hydrochlorothiazide 25 mg PO DAILY metoprolol succinate ER 25 mg PO DAILY nifedipine ER 60 mg PO DAILY umeclidinium 62.5 mcg/actuation (Incruse Ellipta) 1 inh inhalation DAILY warfarin 5 mg See Protocol PO DAILY Nursing Note Pt to ACS, denies complaints, feels well. INR 4.1?out of therapeutic range of 2-3 Medications and supplements reviewed: no changes Patient status: well Diet: has been eating more greens due to INR being 4.1 2 weeks ago Denies any signs and symptoms of bleeding or clotting or unusual bruising Bleeding, bruising, clotting discussed Nutritional guidance given: to have greens today and tomoorrow then to balance both. Dose: hold today's dose then 2.5mg X 2 days and 5mg X4 days, then decrease weekly dose to 2.5mg X 3 days and 5mg X 4 days F/U INR Date : 1 week?? Patient verbalizing understanding of instructions given. Anti-Coag Initial Assessment Social Hx Patient Tobacco Use Status: Current someday Tobacco user Tobacco use type: Cigarette alcohol intake: former Alcohol intake frequency: former alcohol drinker Cardiovascular Hx: HTN, [place], Arrhythmias and Other (PVD recent bilateral femoral stents) Lung Disease HX: COPD and Emphysema Blood Disorder Hx: Hyperlipidemia Cancer HX: No Psych. 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
== END 2023-10-15 08:29 | disposition home or self-care (01) ==
LOC: HO.ACS 08:02
PROVIDERS: PCP Internal Medicine; Visit Provider Internal Medicine
DX: Z79.01 Long term (current) use of anticoagulants (principal)

== ENCOUNTER → 2023-10-15 08:02 | Outpatient (BNVA) | payer MEDICARE, SELFPAY | PROVIDERS: PCP Internal Medicine; Visit Provider Internal Medicine | DX: I48.0 Paroxysmal atrial fibrillation (principal); Z79.01 Long term (current) use of anticoagulants; Z51.81 Encounter for therapeutic drug level monitoring | CPT/HCPCS: 85610; 99211 ==

== ENCOUNTER → 2023-10-22 08:02 | Outpatient (BNVA) | payer MEDICARE, SELFPAY | PROVIDERS: PCP Internal Medicine; Visit Provider Internal Medicine | DX: I48.0 Paroxysmal atrial fibrillation (principal); Z79.01 Long term (current) use of anticoagulants; Z51.81 Encounter for therapeutic drug level monitoring | CPT/HCPCS: 85610; 99211 ==

== ENCOUNTER 2023-11-06 08:00 | Outpatient (AMB) | payer MEDICARE, SELFPAY ==
[2023-11-06 08:13] LABS: Prothrombin Time Whole Bld POC 33.4 sec (11.1-13.5); ~PT, ~INR - Anti Coag Clinic 2.8 (0.9-1.1)
--- NOTE | 2023-11-06 08:18 | MHC.OFFVISCO ---
Intake Intake Visit Reasons: Anticoagulation Allergies No Known Allergies [No Known Allergies*] Allergy (Verified 11/06/23 08:08) Medication List - Last Reconciled 11/06/23 by Britany Flroes RN atorvastatin 20 mg PO DAILY benzonatate 100 mg PO TID cetirizine (Zyrtec) 10 mg PO DAILY PRN cilostazol 100 mg PO .qd fluticasone propionate 50 mcg/actuation 1 spray intranasal BID hydrochlorothiazide 25 mg PO DAILY ketorolac 0.5% drps ophthalmic (eye) metoprolol succinate ER 25 mg PO DAILY nifedipine ER 60 mg PO DAILY umeclidinium 62.5 mcg/actuation (Incruse Ellipta) 1 inh inhalation DAILY warfarin 5 mg See Protocol PO DAILY Nursing Note Amb to [facility] feeling well Medications and supplements reviewed, gas questions re nature made fruits and veggies vitamin reds and greens instructed if he starts can raise or lower INR, everyone responds differently depending on their diet, instr if starting to start week before he returns, take 1 QOD (or 3x a week) and we can monitor INR closely especially as he is coming in every week or 2 now. Instructed to also bring in the bottle so we can see actual ingredients No other changes in health, diet, medications, or supplements, Denies any signs and symptoms of bleeding or bruising or clotting. Bleeding, bruising, clotting discussed INR 2.8 in therapeutic range cpntinue same dosing 2.5mg x 3 days and 5mg x 4 days Nutritional guidance given as noted above and balance greens and reds, be consistent and everything in moderation F/U INR: 2 weeks Patient verbalizes understanding of instructions given Anti-Coag Initial Assessment Social Hx Patient Tobacco Use Status: Current someday Tobacco user Tobacco use type: Cigarette alcohol intake: former Alcohol intake frequency: former alcohol drinker Cardiovascular Hx: HTN, [place], Arrhythmias and Other (PVD recent bilateral femoral stents) Lung Disease HX: COPD and Emphysema Blood Disorder Hx: Hyperlipidemia Cancer HX: No Psych. Illness/Depression: No Coding Level of Care Code Est Patient Level 1 Diagnoses Current use of anticoagulant therapy Z79.01 Time Spent (min) 15 Assessment & Plan Assessment & Plan (1) Current use of anticoagulant therapy: Code(s): Z79.01 - correction (current) use of anticoagulants Category: Medical
== END 2023-11-06 08:25 | disposition home or self-care (01) ==
LOC: HO.ACS 08:00
PROVIDERS: PCP Internal Medicine; Visit Provider Internal Medicine
DX: Z79.01 Long term (current) use of anticoagulants (principal)

== ENCOUNTER → 2023-11-06 08:00 | Outpatient (BNVA) | payer MEDICARE, SELFPAY | PROVIDERS: PCP Internal Medicine; Visit Provider Internal Medicine | DX: I48.0 Paroxysmal atrial fibrillation (principal); Z79.01 Long term (current) use of anticoagulants; Z51.81 Encounter for therapeutic drug level monitoring | CPT/HCPCS: 85610; 99211 ==

== ENCOUNTER 2023-11-20 08:01 | Outpatient (AMB) | payer MEDICARE, SELFPAY ==
[2023-11-20 08:30] LABS: Prothrombin Time Whole Bld POC 29.5 sec (11.1-13.5); ~PT, ~INR - Anti Coag Clinic 2.5 (0.9-1.1)
--- NOTE | 2023-11-20 08:36 | MHC.OFFVISCO ---
Intake Intake Visit Reasons: Anticoagulation Allergies No Known Allergies [No Known Allergies*] Allergy (Verified 11/20/23 08:23) Medication List - Last Reconciled 11/20/23 by Adriane Schmidt RN atorvastatin 20 mg PO DAILY cilostazol 100 mg PO .qd fluticasone propionate 50 mcg/actuation 1 spray intranasal BID hydrochlorothiazide 25 mg PO DAILY metoprolol succinate ER 25 mg PO DAILY nifedipine ER 60 mg PO DAILY umeclidinium 62.5 mcg/actuation (Incruse Ellipta) 1 inh inhalation DAILY warfarin 5 mg See Protocol PO DAILY Nursing Note INR: 2.5 in therapeutic range Medications and supplements reviewed- HAS NOT STARTED THE RED AND GREEN SUPPLEMENT YET - ENC IF HE DOES JUST 1 OF EACH 1-2 WEEKS PRIOR ACS APPT No changes in health, diet, medications, or supplements, Denies any signs and symptoms of bleeding or bruising or clotting. Bleeding, bruising, clotting discussed Nutritional guidance given Dose: 2.5MG X 3 DAYS/ 5MG X 4 DAYS F/U INR: 3 WEEK Patient verbalizes understanding of instructions given Anti-Coag Initial Assessment Social Hx Patient Tobacco Use Status: Current someday Tobacco user Tobacco use type: Cigarette alcohol intake: former Alcohol intake frequency: former alcohol drinker Cardiovascular Hx: HTN, [place], Arrhythmias and Other (PVD recent bilateral femoral stents) Lung Disease HX: COPD and Emphysema Blood Disorder Hx: Hyperlipidemia Cancer HX: No Psych. Illness/Depression: No Coding Level of Care Code Est Patient Level 1 Diagnoses Current use of anticoagulant therapy Z79.01 Assessment & Plan Assessment & Plan (1) Current use of anticoagulant therapy: Code(s): Z79.01 - [facility] (current) use of anticoagulants Category: Medical
== END 2023-11-20 08:38 | disposition home or self-care (01) ==
LOC: HO.ACS 08:01
PROVIDERS: PCP Internal Medicine; Visit Provider Internal Medicine
DX: Z79.01 Long term (current) use of anticoagulants (principal)

== ENCOUNTER → 2023-11-20 08:01 | Outpatient (BNVA) | payer MEDICARE, SELFPAY | PROVIDERS: PCP Internal Medicine; Visit Provider Internal Medicine | DX: I48.0 Paroxysmal atrial fibrillation (principal); Z79.01 Long term (current) use of anticoagulants; Z51.81 Encounter for therapeutic drug level monitoring | CPT/HCPCS: 85610; 99211 ==

== ENCOUNTER 2023-12-10 08:08 | Outpatient (AMB) | payer MEDICARE, SELFPAY ==
--- NOTE | 2023-12-10 08:30 | MHC.OFFVISCO ---
Intake Intake Visit Reasons: Anticoagulation Allergies No Known Allergies [No Known Allergies*] Allergy (Verified 12/10/23 08:21) Medication List - Last Reconciled 12/10/23 by Paige Ocasio RN atorvastatin 20 mg PO DAILY cilostazol 100 mg PO .qd fluticasone propionate 50 mcg/actuation 1 spray intranasal BID hydrochlorothiazide 25 mg PO DAILY metoprolol succinate ER 25 mg PO DAILY nifedipine ER 60 mg PO DAILY umeclidinium 62.5 mcg/actuation (Incruse Ellipta) 1 inh inhalation DAILY warfarin 5 mg See Protocol PO DAILY Nursing Note NO CP,SOB,DIET/MED CHANGES,FALLS OR SX OF BLEEDING. CONTINUE PRESENT DOSE AND FOLLOW-UP IN 3 WEEKS GOOD UNDERSTANDING OF DOSING INSTR. Anti-Coag Initial Assessment Social Hx Patient Tobacco Use Status: Current someday Tobacco user Tobacco use type: Cigarette alcohol intake: former Alcohol intake frequency: former alcohol drinker Cardiovascular Hx: HTN, [place], Arrhythmias and Other (PVD recent bilateral femoral stents) Lung Disease HX: COPD and Emphysema Blood Disorder Hx: Hyperlipidemia Cancer HX: No Psych. 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
== END 2023-12-10 08:31 | disposition home or self-care (01) ==
LOC: HO.ACS 08:08
PROVIDERS: PCP Internal Medicine; Visit Provider Internal Medicine
DX: Z79.01 Long term (current) use of anticoagulants (principal)

== ENCOUNTER → 2023-12-10 08:08 | Outpatient (BNVA) | payer MEDICARE, SELFPAY | PROVIDERS: PCP Internal Medicine; Visit Provider Internal Medicine | DX: I48.0 Paroxysmal atrial fibrillation (principal); Z79.01 Long term (current) use of anticoagulants; Z51.81 Encounter for therapeutic drug level monitoring | CPT/HCPCS: 85610; 99211 ==

== ENCOUNTER 2023-12-31 07:53 | Outpatient (AMB) | payer MEDICARE, SELFPAY ==
[2023-12-31 08:01] LABS: Prothrombin Time Whole Bld POC 37.2 sec (11.1-13.5); ~PT, ~INR - Anti Coag Clinic 3.1 (0.9-1.1)
--- NOTE | 2023-12-31 08:09 | MHC.OFFVISCO ---
Intake Intake Visit Reasons: Anticoagulation Allergies No Known Allergies [No Known Allergies*] Allergy (Verified 12/31/23 07:56) Medication List - Last Reconciled 12/31/23 by Britany Teran RN atorvastatin 20 mg PO DAILY cilostazol 100 mg PO .qd fluticasone propionate 50 mcg/actuation 1 spray intranasal BID hydrochlorothiazide 25 mg PO DAILY metoprolol succinate ER 25 mg PO DAILY nifedipine ER 60 mg PO DAILY umeclidinium 62.5 mcg/actuation (Incruse Ellipta) 1 inh inhalation DAILY warfarin 5 mg See Protocol PO DAILY Nursing Note INR 3.1?out of therapeutic range of 2-3 Medications and supplements reviewed Patient status: feels well Medications or supplements: no changes Diet: states he has been having more summer fruits Denies any signs and symptoms of bleeding or clotting or unusual bruising Bleeding, bruising, clotting discussed Nutritional guidance given: to have a serving of greens, pt states he wasn't sure if he had any and wanted to hold today's dose. This would be ok as today was a lower dose day for him Dose: hold today's dose of 2.5 and then resume usual dose of 5mg X 4 days and 2.5mg X 3 days F/U INR Date : 3 weeks?? Patient verbalizing understanding of instructions given. Anti-Coag Initial Assessment Social Hx Patient Tobacco Use Status: Current someday Tobacco user Tobacco use type: Cigarette alcohol intake: former Alcohol intake frequency: former alcohol drinker Cardiovascular Hx: HTN, [place], Arrhythmias and Other (PVD recent bilateral femoral stents) Lung Disease HX: COPD and Emphysema Blood Disorder Hx: Hyperlipidemia Cancer HX: No Psych. 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
== END 2023-12-31 08:13 | disposition home or self-care (01) ==
LOC: HO.ACS 07:53
PROVIDERS: PCP Internal Medicine; Visit Provider Internal Medicine
DX: Z79.01 Long term (current) use of anticoagulants (principal)

== ENCOUNTER → 2023-12-31 07:53 | Outpatient (BNVA) | payer MEDICARE, SELFPAY | PROVIDERS: PCP Internal Medicine; Visit Provider Internal Medicine | DX: I48.0 Paroxysmal atrial fibrillation (principal); Z79.01 Long term (current) use of anticoagulants; Z51.81 Encounter for therapeutic drug level monitoring | CPT/HCPCS: 85610; 99211 ==

== ENCOUNTER 2024-01-21 08:01 | Outpatient (AMB) | payer MEDICARE, SELFPAY ==
--- NOTE | 2024-01-21 08:11 | MHC.OFFVISCO ---
Intake Intake Visit Reasons: Anticoagulation Allergies No Known Allergies [No Known Allergies*] Allergy (Verified 01/21/24 08:02) Medication List - Last Reconciled 01/21/24 by Adriane Schmidt RN atorvastatin 20 mg PO DAILY cilostazol 100 mg PO .qd fluticasone propionate 50 mcg/actuation 1 spray intranasal BID hydrochlorothiazide 25 mg PO DAILY metoprolol succinate ER 25 mg PO DAILY nifedipine ER 60 mg PO DAILY umeclidinium 62.5 mcg/actuation (Incruse Ellipta) 1 inh inhalation DAILY warfarin 5 mg See Protocol PO DAILY Nursing Note INR: 2.7 in therapeutic range Medications and supplements reviewed No changes in health, diet, medications, or supplements, Denies any signs and symptoms of bleeding or bruising or clotting. Bleeding, bruising, clotting discussed Nutritional guidance given Dose: 2,5NG X 3 DAYS/ 5MG X 4 DAYS F/U INR: 3 WEEKS Patient verbalizes understanding of instructions given Anti-Coag Initial Assessment Social Hx Patient Tobacco Use Status: Current someday Tobacco user Tobacco use type: Cigarette alcohol intake: former Alcohol intake frequency: former alcohol drinker Cardiovascular Hx: HTN, [place], Arrhythmias and Other (PVD recent bilateral femoral stents) Lung Disease HX: COPD and Emphysema Blood Disorder Hx: Hyperlipidemia Cancer HX: No Psych. Illness/Depression: No Coding Level of Care Code Est Patient Level 1 Diagnoses Current use of anticoagulant therapy Z79.01 Results AMB INR Fingerstick AMB INR Fingerstick 2.7 Last Edit by Adriane Schmidt RN on 01/21/24 08:09 manual entry Assessment & Plan Assessment & Plan (1) Current use of anticoagulant therapy: Code(s): Z79.01 - senior living (current) use of anticoagulants Category: Medical
[2024-01-21 08:18] LABS: Prothrombin Time Whole Bld POC 31.8 sec (11.1-13.5); ~PT, ~INR - Anti Coag Clinic 2.7 (0.9-1.1)
== END 2024-01-21 08:14 | disposition home or self-care (01) ==
LOC: HO.ACS 08:01
PROVIDERS: PCP Internal Medicine; Visit Provider Internal Medicine
DX: Z79.01 Long term (current) use of anticoagulants (principal)

== ENCOUNTER → 2024-01-21 08:01 | Outpatient (BNVA) | payer MEDICARE, SELFPAY | PROVIDERS: PCP Internal Medicine; Visit Provider Internal Medicine | DX: I48.0 Paroxysmal atrial fibrillation (principal); Z79.01 Long term (current) use of anticoagulants; Z51.81 Encounter for therapeutic drug level monitoring | CPT/HCPCS: 85610; 99211 ==

== ENCOUNTER 2024-02-11 08:01 | Outpatient (AMB) | payer MEDICARE, SELFPAY ==
--- NOTE | 2024-02-11 08:11 | MHC.OFFVISCO ---
Intake Intake Visit Reasons: Anticoagulation Allergies No Known Allergies [No Known Allergies*] Allergy (Verified 02/11/24 08:06) Medication List - Last Reconciled 02/11/24 by Anahy Deng RN atorvastatin 20 mg PO DAILY cilostazol 100 mg PO .qd fluticasone propionate 50 mcg/actuation 1 spray intranasal BID hydrochlorothiazide 25 mg PO DAILY metoprolol succinate ER 25 mg PO DAILY nifedipine ER 60 mg PO DAILY umeclidinium 62.5 mcg/actuation (Incruse Ellipta) 1 inh inhalation DAILY warfarin 5 mg See Protocol PO DAILY Nursing Note INR: 2.8- in therapeutic range of 2-3 Medications and supplements reviewed No changes in health, diet, medications, or supplements, Denies any signs and symptoms of bleeding or bruising or clotting. Bleeding, bruising, clotting discussed Nutritional guidance given Dose: 2.5mg x 3, 5mg x 4 F/U INR: pt req 3 weeks Patient verbalizes understanding of instructions given Anti-Coag Initial Assessment Social Hx Patient Tobacco Use Status: Current someday Tobacco user Tobacco use type: Cigarette alcohol intake: former Alcohol intake frequency: former alcohol drinker Cardiovascular Hx: HTN, [place], Arrhythmias and Other (PVD recent bilateral femoral stents) Lung Disease HX: COPD and Emphysema Blood Disorder Hx: Hyperlipidemia Cancer HX: No Psych. 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
[2024-02-11 08:12] LABS: ~PT, ~INR - Anti Coag Clinic 2.8 (0.9-1.1)
== END 2024-02-11 08:17 | disposition home or self-care (01) ==
LOC: HO.ACS 08:01
PROVIDERS: PCP Internal Medicine; Visit Provider Internal Medicine
DX: Z79.01 Long term (current) use of anticoagulants (principal)

== ENCOUNTER → 2024-02-11 08:01 | Outpatient (BNVA) | payer MEDICARE, SELFPAY | PROVIDERS: PCP Internal Medicine; Visit Provider Internal Medicine | DX: I48.0 Paroxysmal atrial fibrillation (principal); Z79.01 Long term (current) use of anticoagulants; Z51.81 Encounter for therapeutic drug level monitoring | CPT/HCPCS: 85610; 99211 ==

== ENCOUNTER 2024-03-03 08:03 | Outpatient (AMB) | payer MEDICARE, SELFPAY ==
--- NOTE | 2024-03-03 08:25 | MHC.OFFVISCO ---
Intake Intake Visit Reasons: Anticoagulation Allergies No Known Allergies [No Known Allergies*] Allergy (Verified 03/03/24 08:21) Medication List - Last Reconciled 03/03/24 by Anahy Deng RN atorvastatin 20 mg PO DAILY cilostazol 100 mg PO .qd fluticasone propionate 50 mcg/actuation 1 spray intranasal BID hydrochlorothiazide 25 mg PO DAILY metoprolol succinate ER 25 mg PO DAILY nifedipine ER 60 mg PO DAILY umeclidinium 62.5 mcg/actuation (Incruse Ellipta) 1 inh inhalation DAILY warfarin 5 mg See Protocol PO DAILY Nursing Note INR 3.7-?? out of therapeutic range of 2-3 Medications and supplements reviewed Patient status: no changes, had flu and covid vaccine approx a week ago Medications or supplements: no changes Diet: same Denies any signs and symptoms of bleeding or clotting or unusual bruising Bleeding, bruising, clotting discussed Nutritional guidance given: eat greens to lower Dose: hold warfarin today then cont 2.5mg x 3, 5mg x 4 F/U INR Date : 2 weeks?? Patient verbalizing understanding of instructions given. Anti-Coag Initial Assessment Social Hx Patient Tobacco Use Status: Current someday Tobacco user Tobacco use type: Cigarette alcohol intake: former Alcohol intake frequency: former alcohol drinker Cardiovascular Hx: HTN, [place], Arrhythmias and Other (PVD recent bilateral femoral stents) Lung Disease HX: COPD and Emphysema Blood Disorder Hx: Hyperlipidemia Cancer HX: No Psych. 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
[2024-03-03 08:26] LABS: Prothrombin Time Whole Bld POC 44.1 sec (11.1-13.5); ~PT, ~INR - Anti Coag Clinic 3.7 (0.9-1.1)
== END 2024-03-03 08:34 | disposition home or self-care (01) ==
LOC: HO.ACS 08:03
PROVIDERS: PCP Internal Medicine; Visit Provider Internal Medicine
DX: Z79.01 Long term (current) use of anticoagulants (principal)

== ENCOUNTER → 2024-03-03 08:03 | Outpatient (BNVA) | payer MEDICARE, SELFPAY | PROVIDERS: PCP Internal Medicine; Visit Provider Internal Medicine | DX: I48.0 Paroxysmal atrial fibrillation (principal); Z79.01 Long term (current) use of anticoagulants; Z51.81 Encounter for therapeutic drug level monitoring | CPT/HCPCS: 85610; 99211 ==

== ENCOUNTER 2024-03-18 08:02 | Outpatient (AMB) | payer MEDICARE, SELFPAY ==
--- NOTE | 2024-03-18 08:23 | MHC.OFFVISCO ---
Intake Intake Visit Reasons: Anticoagulation Allergies No Known Allergies [No Known Allergies*] Allergy (Verified 03/18/24 08:19) Medication List - Last Reconciled 03/18/24 by Anahy Deng RN atorvastatin 20 mg PO DAILY cilostazol 100 mg PO .qd fluticasone propionate 50 mcg/actuation 1 spray intranasal BID hydrochlorothiazide 25 mg PO DAILY metoprolol succinate ER 25 mg PO DAILY nifedipine ER 60 mg PO DAILY umeclidinium 62.5 mcg/actuation (Incruse Ellipta) 1 inh inhalation DAILY warfarin 5 mg See Protocol PO DAILY Nursing Note INR: 3.0- in therapeutic range 2-3 Medications and supplements reviewed No changes in health, diet, medications, or supplements, Denies any signs and symptoms of bleeding or bruising or clotting. Bleeding, bruising, clotting discussed Nutritional guidance given - include greens in diet Dose: 2.5mg x 3, 5mg x 4 F/U INR: pt req 3 weeks Patient verbalizes understanding of instructions given Anti-Coag Initial Assessment Social Hx Patient Tobacco Use Status: Current someday Tobacco user Tobacco use type: Cigarette alcohol intake: former Alcohol intake frequency: former alcohol drinker Cardiovascular Hx: HTN, [place], Arrhythmias and Other (PVD recent bilateral femoral stents) Lung Disease HX: COPD and Emphysema Blood Disorder Hx: Hyperlipidemia Cancer HX: No Psych. 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
[2024-03-18 08:24] LABS: Prothrombin Time Whole Bld POC 35.9 sec (11.1-13.5)
== END 2024-03-18 08:38 | disposition home or self-care (01) ==
LOC: HO.ACS 08:02
PROVIDERS: PCP Internal Medicine; Visit Provider Internal Medicine
DX: Z79.01 Long term (current) use of anticoagulants (principal)

== ENCOUNTER → 2024-03-18 08:02 | Outpatient (BNVA) | payer MEDICARE, SELFPAY | PROVIDERS: PCP Internal Medicine; Visit Provider Internal Medicine | DX: I48.0 Paroxysmal atrial fibrillation (principal); Z79.01 Long term (current) use of anticoagulants; Z51.81 Encounter for therapeutic drug level monitoring | CPT/HCPCS: 85610; 99211 ==

== ENCOUNTER → 2024-04-08 07:10 | Outpatient (BNVA) | payer MEDICARE, SELFPAY | PROVIDERS: PCP Internal Medicine; Visit Provider Internal Medicine | DX: I48.0 Paroxysmal atrial fibrillation (principal); Z79.01 Long term (current) use of anticoagulants; Z51.81 Encounter for therapeutic drug level monitoring | CPT/HCPCS: 85610; 99211 ==

== ENCOUNTER 2024-04-08 07:55 | Outpatient (AMB) | payer MEDICARE, SELFPAY ==
--- NOTE | 2024-04-08 08:10 | MHC.OFFVISCO ---
Intake Intake Visit Reasons: Anticoagulation Allergies No Known Allergies [No Known Allergies*] Allergy (Verified 04/08/24 07:57) Medication List - Last Reconciled 04/08/24 by Adriane Schmidt RN atorvastatin 20 mg PO DAILY cilostazol 100 mg PO .qd fluticasone propionate 50 mcg/actuation 1 spray intranasal BID hydrochlorothiazide 25 mg PO DAILY metoprolol succinate ER 25 mg PO DAILY nifedipine ER 60 mg PO DAILY umeclidinium 62.5 mcg/actuation (Incruse Ellipta) 1 inh inhalation DAILY warfarin 5 mg See Protocol PO DAILY Nursing Note INR: 2.8 in therapeutic range Medications and supplements reviewed No changes in health, diet, medications, or supplements, Denies any signs and symptoms of bleeding or bruising or clotting. Bleeding, bruising, clotting discussed Nutritional guidance given Dose: 2.5mg mwf/ 5mg x 4 days F/U INR: 3 weeks Patient verbalizes understanding of instructions given Anti-Coag Initial Assessment Social Hx Patient Tobacco Use Status: Current someday Tobacco user Tobacco use type: Cigarette alcohol intake: former Alcohol intake frequency: former alcohol drinker Cardiovascular Hx: HTN, [place], Arrhythmias and Other (PVD recent bilateral femoral stents) Lung Disease HX: COPD and Emphysema Blood Disorder Hx: Hyperlipidemia Cancer HX: No Psych. Illness/Depression: No Questionnaires HAS-BLED Does the patient had uncontrolled Hypertension?: No Does the patient have renal disease?: No Does the patient have liver disease?: No Does the patient have a history of stroke?: No Has the patient had major bleeding or predisposition to bleeding?: Yes Does the patient have labile INRs?: No Is the patient over 65 years of age?: Yes Is the patient on medications that gives them a predisposition to bleeding?: Yes Does the patient use alcohol?: No HAS-BLED Score: 3 CHADSVASC Age: 75 or over Gender: Male Does the patient have a history of CHF?: No Does the patient have a history of Hypertension?: Yes Does the patient have a history of Stroke/TIA/Thromboembolism?: No Does the patient have a history of Vascular Disease (prior [place], PAD or aortic plaque)?: Yes Does the patient have a history of Diabetes?: No CHADS VACS Score: 4 Kimi Prediction Score Rsk VTE Active Cancer: No Previous VTE, excluding superficial vein thrombosis: No Reduced mobility: No Already known Thrombophilic Condition: No With-in last month Trauma and/or Surgery: No Elderly 70 year or older: Yes Heart and/or Respiratory Failure: No Acute Myocardial infarction and/or Ischemic Stroke: No Acute Infection and/or Rheumatologic Disorder: No Obesity (BMI 30 or greater): No Ongoing Hormonal Treatment: No Score: 1 Kimi Score less than 4; Low Risk of VTE Kimi Score 4 or greater; High Risk of VTE Coding Level of Care Code Est Patient Level 1 Diagnoses Current use of anticoagulant therapy Z79.01 Results AMB INR Fingerstick AMB INR Fingerstick 2.8 Last Edit by Adriane Schmidt RN on 04/08/24 08:07 manual entry Assessment & Plan Assessment & Plan (1) Current use of anticoagulant therapy: Code(s): Z79.01 - long-term (current) use of anticoagulants Category: Medical
[2024-04-08 08:11] LABS: Prothrombin Time Whole Bld POC 33.7 sec (11.1-13.5); ~PT, ~INR - Anti Coag Clinic 2.8 (0.9-1.1)
== END 2024-04-08 08:14 | disposition home or self-care (01) ==
PROVIDERS: PCP Internal Medicine; Visit Provider Internal Medicine
DX: Z79.01 Long term (current) use of anticoagulants (principal)

== ENCOUNTER 2024-04-29 08:56 | Outpatient (AMB) | payer MEDICARE, SELFPAY ==
--- NOTE | 2024-04-29 09:15 | MHC.OFFVISCO ---
Intake Intake Visit Reasons: Anticoagulation Allergies No Known Allergies [No Known Allergies*] Allergy (Verified 04/29/24 09:01) Medication List - Last Reconciled 04/29/24 by Britany Flores RN atorvastatin 20 mg PO DAILY cilostazol 100 mg PO .qd fluticasone propionate 50 mcg/actuation 1 spray intranasal BID hydrochlorothiazide 25 mg PO DAILY metoprolol succinate ER 25 mg PO DAILY nifedipine ER 60 mg PO DAILY umeclidinium 62.5 mcg/actuation (Incruse Ellipta) 1 inh inhalation DAILY warfarin 5 mg See Protocol PO DAILY Nursing Note Amb to ACS feeling well Medications and supplements reviewed No changes in health, diet, medications, or supplements, Denies any signs and symptoms of bleeding,bruising, or clotting. Bleeding, bruising, clotting discussed INR 3.3 above therapeutic range Dose: decrease today only to 2.5mg then resume usual dosing 2.5mg x 3 days and 5mg x 4 days eat a diet balanced with greens and reds, pt sts he wants to start nutrition drink, boost or ensure- once a week for now instructed, acts like a green, once a week should be fine F/U INR: 3 weeks Patient verbalizes understanding of instructions given Anti-Coag Initial Assessment Social Hx Patient Tobacco Use Status: Current someday Tobacco user Tobacco use type: Cigarette alcohol intake: former Alcohol intake frequency: former alcohol drinker Cardiovascular Hx: HTN, [place], Arrhythmias and Other Lung Disease HX: COPD and Emphysema Blood Disorder Hx: Hyperlipidemia Cancer HX: No Psych. 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
[2024-04-29 09:17] LABS: Prothrombin Time Whole Bld POC 39.6 sec (11.1-13.5); ~PT, ~INR - Anti Coag Clinic 3.3 (0.9-1.1)
== END 2024-04-29 09:20 | disposition home or self-care (01) ==
LOC: HO.ACS 08:56
PROVIDERS: PCP Internal Medicine; Visit Provider Internal Medicine
DX: Z79.01 Long term (current) use of anticoagulants (principal)

== ENCOUNTER → 2024-04-29 08:56 | Outpatient (BNVA) | payer MEDICARE, SELFPAY | PROVIDERS: PCP Internal Medicine; Visit Provider Internal Medicine | DX: I48.0 Paroxysmal atrial fibrillation (principal); Z79.01 Long term (current) use of anticoagulants; Z51.81 Encounter for therapeutic drug level monitoring | CPT/HCPCS: 85610; 99211 ==

== ENCOUNTER 2024-05-20 08:00 | Outpatient (AMB) | payer MEDICARE, SELFPAY ==
[2024-05-20 08:08] LABS: Prothrombin Time Whole Bld POC 29.5 sec (11.1-13.5); ~PT, ~INR - Anti Coag Clinic 2.5 (0.9-1.1)
--- NOTE | 2024-05-20 08:18 | MHC.OFFVISCO ---
Intake Intake Visit Reasons: Anticoagulation Allergies No Known Allergies [No Known Allergies*] Allergy (Verified 05/20/24 08:02) Medication List - Last Reconciled 05/20/24 by Britany Teran RN atorvastatin 20 mg PO DAILY cilostazol 100 mg PO .qd fluticasone propionate 50 mcg/actuation 1 spray intranasal BID hydrochlorothiazide 25 mg PO DAILY metoprolol succinate ER 25 mg PO DAILY nifedipine ER 60 mg PO DAILY umeclidinium 62.5 mcg/actuation (Incruse Ellipta) 1 inh inhalation DAILY warfarin 5 mg See Protocol PO DAILY Nursing Note INR: 2.5 in therapeutic range 2-3 INR's have been running on the high side 3.3, 2.8, 3.0 and 3.7 Pt states over the past 3 weeks, he has increased his green intake. He had extra servings of broccoli and cauliflower and has had ensure 2 cans a week. He said it was with much effort by him that his INR decreased. Medications and supplements reviewed No changes in health, medications, or supplements, Denies any signs and symptoms of bleeding or bruising or clotting. Bleeding, bruising, clotting discussed Nutritional guidance given to balance foods that raise and foods that lower the INR. Dose: 5mg X 4 days and 2.5mg X 3 days F/U INR: 2 weeks Pt states he will cut the ensure to 1 can a week. If INR comes back high in 2 weeks, will decrease weekly dose by 2.5mg Patient verbalizes understanding of instructions given Anti-Coag Initial Assessment Social Hx Patient Tobacco Use Status: Current someday Tobacco user Tobacco use type: Cigarette alcohol intake: former Alcohol intake frequency: former alcohol drinker Cardiovascular Hx: HTN, [place], Arrhythmias and Other Lung Disease HX: COPD and Emphysema Blood Disorder Hx: Hyperlipidemia Cancer HX: No Psych. Illness/Depression: No Coding Level of Care Code Est Patient Level 1 Diagnoses Current use of anticoagulant therapy Z79.01 Results AMB INR Fingerstick AMB INR Fingerstick 2.5 Last Edit by Britany Teran RN on 05/20/24 08:16 interface delay Assessment & Plan Assessment & Plan (1) Current use of anticoagulant therapy: Code(s): Z79.01 - senior care (current) use of anticoagulants Category: Medical
== END 2024-05-20 08:24 | disposition home or self-care (01) ==
LOC: HO.ACS 08:00
PROVIDERS: PCP Internal Medicine; Visit Provider Internal Medicine
DX: Z79.01 Long term (current) use of anticoagulants (principal)

== ENCOUNTER → 2024-05-20 08:00 | Outpatient (BNVA) | payer MEDICARE, SELFPAY | PROVIDERS: PCP Internal Medicine; Visit Provider Internal Medicine | DX: I48.0 Paroxysmal atrial fibrillation (principal); Z79.01 Long term (current) use of anticoagulants; Z51.81 Encounter for therapeutic drug level monitoring | CPT/HCPCS: 85610; 99211 ==

== ENCOUNTER 2024-06-03 09:01 | Outpatient (AMB) | payer MEDICARE, SELFPAY ==
[2024-06-03 09:11] LABS: Prothrombin Time Whole Bld POC 31.1 sec (11.1-13.5); ~PT, ~INR - Anti Coag Clinic 2.6 (0.9-1.1)
--- NOTE | 2024-06-03 09:14 | MHC.OFFVISCO ---
Intake Intake Visit Reasons: Anticoagulation Allergies No Known Allergies [No Known Allergies*] Allergy (Verified 06/03/24 09:04) Medication List - Last Reconciled 06/03/24 by Britany Flores RN atorvastatin 20 mg PO DAILY cilostazol 100 mg PO .qd fluticasone propionate 50 mcg/actuation 1 spray intranasal BID hydrochlorothiazide 25 mg PO DAILY metoprolol succinate ER 25 mg PO DAILY nifedipine ER 60 mg PO DAILY umeclidinium 62.5 mcg/actuation (Incruse Ellipta) 1 inh inhalation DAILY warfarin 5 mg See Protocol PO DAILY Nursing Note Amb to ACS feeling well Medications and supplements reviewed No changes in health, diet, medications, or supplements, sts he has 1 can ensure weekly Denies any signs and symptoms of bruising or clotting. Sts he has been noticing some bloody nose nothing dripping just in the tissue Pt sts he had some bad bloody noses in past that needed cauterization sts nothing like that now Bleeding, bruising, clotting discussed, and recommended to get AYR saline gel and apply to nostrils, humidifier. INR: 2.6 in therapeutic range Dose: continue usual dosing 2.5mg x 3 days and 5mg x 4 days balance diet, be consistent F/U INR: 3 weeks Patient verbalizes understanding of instructions given Anti-Coag Initial Assessment Social Hx Patient Tobacco Use Status: Current someday Tobacco user Tobacco use type: Cigarette alcohol intake: former Alcohol intake frequency: former alcohol drinker Cardiovascular Hx: HTN, [place], Arrhythmias and Other Lung Disease HX: COPD and Emphysema Blood Disorder Hx: Hyperlipidemia Cancer HX: No Psych. Illness/Depression: No Coding Level of Care Code Est Patient Level 1 Diagnoses Current use of anticoagulant therapy Z79.01 Time Spent (min) 15 Assessment & Plan Assessment & Plan (1) Current use of anticoagulant therapy: Code(s): Z79.01 - detention (current) use of anticoagulants Category: Medical
== END 2024-06-03 09:45 | disposition home or self-care (01) ==
LOC: HO.ACS 09:01
PROVIDERS: PCP Internal Medicine; Visit Provider Internal Medicine
DX: Z79.01 Long term (current) use of anticoagulants (principal)

== ENCOUNTER → 2024-06-03 09:01 | Outpatient (BNVA) | payer MEDICARE, SELFPAY | PROVIDERS: PCP Internal Medicine; Visit Provider Internal Medicine | DX: I48.0 Paroxysmal atrial fibrillation (principal); Z79.01 Long term (current) use of anticoagulants; Z51.81 Encounter for therapeutic drug level monitoring | CPT/HCPCS: 85610; 99211 ==

== ENCOUNTER 2024-06-23 08:09 | Outpatient (AMB) | payer MEDICARE, SELFPAY ==
[2024-06-23 08:32] LABS: Prothrombin Time Whole Bld POC 31.6 sec (11.1-13.5); ~PT, ~INR - Anti Coag Clinic 2.6 (0.9-1.1)
--- NOTE | 2024-06-23 08:35 | MHC.OFFVISCO ---
Intake Intake Visit Reasons: Anticoagulation Allergies No Known Allergies [No Known Allergies*] Allergy (Verified 06/23/24 08:27) Medication List - Last Reconciled 06/23/24 by Adriane Schmidt RN atorvastatin 20 mg PO DAILY cilostazol 100 mg PO .qd fluticasone propionate 50 mcg/actuation 1 spray intranasal BID hydrochlorothiazide 25 mg PO DAILY metoprolol succinate ER 25 mg PO DAILY nifedipine ER 60 mg PO DAILY umeclidinium 62.5 mcg/actuation (Incruse Ellipta) 1 inh inhalation DAILY warfarin 5 mg See Protocol PO DAILY Nursing Note INR: 2.6 in therapeutic range Medications and supplements reviewed No changes in health, diet, medications, or supplements, Denies any signs and symptoms of bleeding or bruising or clotting. Bleeding, bruising, clotting discussed Nutritional guidance given Dose: 2.5MG X 3 DYA/ 5MG X 4 DAYS F/U INR: 1MONTH Patient verbalizes understanding of instructions given Anti-Coag Initial Assessment Social Hx Patient Tobacco Use Status: Current someday Tobacco user Tobacco use type: Cigarette alcohol intake: former Alcohol intake frequency: former alcohol drinker Cardiovascular Hx: HTN, [place], Arrhythmias and Other Lung Disease HX: COPD and Emphysema Blood Disorder Hx: Hyperlipidemia Cancer HX: No Psych. 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
== END 2024-06-23 08:39 | disposition home or self-care (01) ==
LOC: HO.ACS 08:09
PROVIDERS: PCP Internal Medicine; Visit Provider Internal Medicine
DX: Z79.01 Long term (current) use of anticoagulants (principal)

== ENCOUNTER → 2024-06-23 08:09 | Outpatient (BNVA) | payer MEDICARE, SELFPAY | PROVIDERS: PCP Internal Medicine; Visit Provider Internal Medicine | DX: I48.0 Paroxysmal atrial fibrillation (principal); Z79.01 Long term (current) use of anticoagulants; Z51.81 Encounter for therapeutic drug level monitoring | CPT/HCPCS: 85610; 99211 ==

== ENCOUNTER 2024-07-07 13:38 | Outpatient (AMB) | payer MEDICARE, SELFPAY ==
--- NOTE | 2024-07-07 13:41 | A.OFFVIS_ITS ---
Vital Signs 07/07/24 13:42 Height 5 ft 9 in Weight 163 lb 2.273 oz BMI 24.1 BP 120/68 Blood Pressure Location Lt brachial Position Sitting Pulse 104 H Pulse Source Monitor Intake Visit Reasons: followup last seen 02/21/22 Allergies No Known Allergies [No Known Allergies*] Allergy (Verified 06/23/24 08:27) Medication List - Last Reconciled 07/07/24 by Jonsa Freitas MD atorvastatin 20 mg PO DAILY cilostazol 100 mg PO .qd fluticasone propionate 50 mcg/actuation 1 spray intranasal BID PRN hydrochlorothiazide 25 mg PO DAILY nifedipine ER 60 mg PO DAILY umeclidinium 62.5 mcg/actuation (Incruse Ellipta) 1 inh inhalation DAILY warfarin 5 mg See Protocol PO DAILY HPI Comments Details: Sukh comes for follow-up after a long time. He said over the last 2 through 3 months arrhythmic any exertional short of breath. No orthopnea, PND, leg edema. He is currently seeing pulmonary has been prescribed smoking cessation. He also follows up with vascular surgery and has no symptoms of claudication since stenting in his lower extremity. Denies any prolonged palpitation irregular heartbeat or fast heart rate. Denies any exertional chest pain. Comes in today he has noticed to be in atrial fibrillation. He follows with [facility] and is INRs has been therapeutic between 2 and 3 over the last few months. No bleeding issues or neurologic events. [facility] Medical History AAA (abdominal aortic aneurysm) Cardiac arrhythmia, unspecified Carotid disease, bilateral COPD (chronic obstructive pulmonary disease) RESIGHINI (hard of hearing) HTN (hypertension) Hypercholesteremia Myocardial infarct Neoplasm Paroxysmal atrial fibrillation PVCs (premature ventricular contractions) PVD (peripheral vascular disease) Surgical History History of shoulder surgery Family History Mother Myocardial infarct Sister Cancer Father No problems noted. 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 Current occupational exposures/hazards: No Review of Systems Const Denies weakness ENT Denies dizziness Card Denies chest pain, Denies chest pain with activity, Denies syncope, Denies rapid heart rate, Denies pedal edema, Denies edema, Denies leg edema, Denies lightheadedness, Denies palpitations, Denies dyspnea, Denies dyspnea on exertion and Denies orthopnea Resp Denies cough, Denies dyspnea and Denies dyspnea on exertion GI Denies hematochezia and Denies change in stool character Musc Denies abnormal gait, Denies muscle cramps, Denies muscle weakness, Denies numbness, Denies radiating pain into limb and Denies tingling Neuro Denies abnormal gait, Denies dizziness, Denies syncope, Denies numbness, Denies tingling and Denies weakness Endo Denies palpitations Physical Exam Vital Signs: Last Vital Signs Pulse 104 H 07/07/24 13:42 BP 120/68 07/07/24 13:42 BMI result Body Mass Index 24.1 Const General: cooperative, comfortable, no acute distress, alert and awake Nutritional Appearance: thin Orientation/consciousness: patient oriented x3 Limitations: no limitations Neck Neck: Yes trachea midline, Yes supple and Yes no JVD Carotids: bruit bilateral Resp Effort & Inspection: normal respiratory effort Auscultation: no rales, no wheezes and diminished lung sounds Cardio Jugular venous distension: no JVD Palpation: normal PMI Rhythm: abnormal rhythm irregularly irregular Heart sounds: S1 normal heart sound present, S2 normal heart sound present and Murmur heart sound present systolic (Ejection systolic) Peripheral pulses: other (Reduced bilateral distal) GI Auscultation: normal bowel sounds Skin General skin exam: no rashes or lesions noted Neuro General: patient oriented x3 and no focal motor deficits Extrem General: Yes no clubbing, cyanosis or edema Office Procedures EKG Details: EKG shows atrial fibrillation with left axis deviation 104 beats per minute with septal QS pattern [id number], Complete Assessment & Plan Assessment & Plan (1) Persistent atrial fibrillation: Code(s): I48.19 - Other persistent atrial fibrillation Category: Medical Plan: Persistent atrial fibrillation this elderly gentleman with recent symptoms suggestive of symptoms related to loss of AV synchrony. Does not have significant wheezing or worsening lung function off a sudden to explain this. No signs or symptoms of heart failure. I think he will benefit from rhythm control approach. At this point time would need an echocardiogram to assess biatrial chamber size to assess for need for antiarrhythmic drug therapy. Unknown duration of atrial fibrillation but appears to be over the last few months. We discussed the potential path and the data and the symptoms that would most likely guide his future treatment with rhythm control versus rate control strategy. He understands and agrees. Will follow-up echocardiogram near future and further decide what therapy needs to be pursued. We also di scussed the need for synchronized cardioversion including risks, benefits, alternatives. He understands and agrees. Continue warfarin therapy. He has an upcoming appointment for INR check on July 21 in his advised to continue pursue that. Will follow up in the clinic after cardioversion. Thank you for allowing me to partake in his care Orders: Orders CA echo transthoracic complete Today I48.19 - Other persistent atrial fibrillation Coding Level of Care Code Est Pt Level 4 (67528) Complex EM visit Add On G2211 Diagnoses Persistent atrial fibrillation I48.19 CPT Codes EKG - CPT: [id number], Complete ([id number])
[2024-07-07 13:42] VITALS: BP 120/68; PULSE 104; BMI 24.1
== END 2024-07-07 14:11 | disposition home or self-care (01) ==
PROVIDERS: PCP Internal Medicine; Visit Provider Internal Medicine Cardiovascular Disease
DX: I48.19 Other persistent atrial fibrillation (principal)
CPT/HCPCS: 93010; 99214; G2211

== ENCOUNTER → 2024-07-07 13:38 | Outpatient (BNVA) | payer MEDICARE, SELFPAY | PROVIDERS: PCP Internal Medicine; Visit Provider Internal Medicine Cardiovascular Disease | DX: I48.19 Other persistent atrial fibrillation (principal); Z79.01 Long term (current) use of anticoagulants | CPT/HCPCS: 93005; 99212 ==

== ENCOUNTER 2024-07-21 07:55 | Outpatient (AMB) | payer MEDICARE, SELFPAY ==
[2024-07-21 08:15] LABS: Prothrombin Time Whole Bld POC 34.8 sec (11.1-13.5); ~PT, ~INR - Anti Coag Clinic 2.9 (0.9-1.1)
--- NOTE | 2024-07-21 08:16 | MHC.OFFVISCO ---
Intake Intake Visit Reasons: Anticoagulation Allergies No Known Allergies [No Known Allergies*] Allergy (Verified 07/21/24 08:01) Medication List - Last Reconciled 07/21/24 by Britany Teran RN atorvastatin 20 mg PO DAILY cilostazol 100 mg PO .qd fluticasone propionate 50 mcg/actuation 1 spray intranasal BID PRN hydrochlorothiazide 25 mg PO DAILY metoprolol succinate ER 25 mg PO DAILY nifedipine ER 60 mg PO DAILY umeclidinium 62.5 mcg/actuation (Incruse Ellipta) 1 inh inhalation DAILY warfarin 5 mg See Protocol PO DAILY Nursing Note INR: 2.9 in therapeutic range of 2-3 Medications and supplements reviewed Taking Chantix for quitting smoking which has no effect on INR but smoking does. Quitting smoking can raise the INR. Pt is down to 3-4 cigarettes a day. No changes in diet, medications, or supplements, Denies any signs and symptoms of bleeding or bruising or clotting. Bleeding, bruising, clotting discussed Nutritional guidance given to increase greens 2-3 servings a week Dose: 5mg X 4 days and 2.5mg X 3 days (Mon, Wed & Fri) F/U INR: 2 weeks Patient verbalizes understanding of instructions with read back given Anti-Coag Initial Assessment Social Hx Patient Tobacco Use Status: Current someday Tobacco user Tobacco use type: Cigarette alcohol intake: former Alcohol intake frequency: former alcohol drinker Cardiovascular Hx: HTN, [place], Arrhythmias and Other Lung Disease HX: COPD and Emphysema Blood Disorder Hx: Hyperlipidemia Cancer HX: No Psych. Illness/Depression: No Coding Level of Care Code Est Patient Level 1 Diagnoses Current use of anticoagulant therapy Z79.01 Results AMB INR Fingerstick AMB INR Fingerstick 2.9 Last Edit by Britany Teran RN on 07/21/24 08:10 interface delay Assessment & Plan Assessment & Plan (1) Current use of anticoagulant therapy: Code(s): Z79.01 - custodial (current) use of anticoagulants Category: Medical
== END 2024-07-21 08:19 | disposition home or self-care (01) ==
LOC: HO.ACS 07:55
PROVIDERS: PCP Internal Medicine; Visit Provider Internal Medicine
DX: Z79.01 Long term (current) use of anticoagulants (principal)

== ENCOUNTER → 2024-07-21 07:55 | Outpatient (BNVA) | payer MEDICARE, SELFPAY | PROVIDERS: PCP Internal Medicine; Visit Provider Internal Medicine | DX: I48.0 Paroxysmal atrial fibrillation (principal); Z79.01 Long term (current) use of anticoagulants; Z51.81 Encounter for therapeutic drug level monitoring | CPT/HCPCS: 85610; 99211 ==

== ENCOUNTER → 2024-08-04 07:49 | Outpatient (REF) | payer MEDICARE, SELFPAY ==
--- NOTE | 2024-08-04 07:56 | CA_ITS ---
Transthoracic Echocardiogram Patient (Last, First, Middle): Sukh Montes J Gender: Male Date of : 1945 Age: 79 Procedure Date: 08/04/2024 Procedure Type: Transthoracic Echocardiogram Location: OP Height: 177.8 cm Weight: 70.31 kg BSA: 1.87 m2 Heart Rate: 115 bpm BP: 120 / 68 mmHg Automation Application Engineer: LIZ Referring MD: Jonas Freitas MD Bed Setter: Jonas Freitas MD Symptoms: I48.19 - Other persistent atrial fibrillation Study Quality: Adequate ECG Rhythm: Atrial Fibrillation w RVR Conclusions: - 1. Low normal LV ejection fraction of 50-55% with wall motion abnormality at the apex 2. Normal cardiac valvular Dopplers 3. Normal RV systolic pressure 4. Upper limits of normal ascending aortic size Findings Procedure Information Contrast agent, definity, is being given per protocol without apparent complications. Left Ventricle Normal left ventricular cavity size. There is normal left ventricular wall thickness. The left ventricular systolic function is low normal. The visually estimated ejection fraction is between 50-55%. Diastolic function is indeterminate on the basis of available data. Wall Motion Rest Echo Findings The inferior wall and apical septum segment are hypokinetic. The apex segment is dyskinetic. All other scored wall segments showed normal motion. Right Ventricle The right ventricle was not well visualized. Atria The left atrium is normal in size. Interatrial shunt cannot be excluded. The right atrium was not well visualized. Aortic Valve The aortic valve was not well visualized. There is no aortic valve stenosis. There is no aortic valve regurgitation. Mitral Valve There is mild anterior and posterior mitral leaflet thickening. There is trace mitral valve regurgitation. There is no mitral valve stenosis. Pulmonic Valve The pulmonic valve was not well visualized. Tricuspid Valve Likely normal tricuspid valve structure and function. There is trace tricuspid valve regurgitation. The right ventricular systolic pressure is normal. The right ventricular systolic pressure is 16 mmHg. Normal right atrial pressure. There is no evidence of pulmonary hypertension. Great Vessels The pulmonary artery was not well visualized. Small plaque is seen in the sino tubular ridge. Venous The inferior vena cava is normal in size and collapses greater than 50% with inspiration. Pericardium/Pleural There is no evidence of pericardial effusion. Prior Study Comparison Changes noted compared to prior study dated: 08/16/2022. LV ejection fraction is reduced Measurements 2D Linear Measurements IVSd: 1.09 0.6-0.9/0.6-1.0 cm LVIDd: 4.10 3.9-5.3/4.2-5.9 cm LVIDd Index: 2.19 2.4-3.2/2.2-3.1 cm/m2 LVIDs: 2.97 2.0-3.6 cm LVPWd: 1.01 0.7-1.1 cm LA Diam: 3.70 2.7-3.8/3.0-4.0 cm LAIDs Index: 1.98 1.5-2.3 cm/m2 LV Mass: 176.18 67-162/88-224 g LV Mass Index: 94.22 43-95/49-115 g/m2 LVOT Diam: 2.50 3.0+(-)1.3 cm 2D Systolic Function EF 4C: 48.60 >55% EF 2C: 55.50 >55% EF BiP: 53.30 >55% Mitral Valve MV Pk E: 0.88 Aortic Valve AoV Pk Michael: 1.09 AoV Pk Grad: 5.00 EVERETTE: 2.49 LVOT LVOT Pk Michael: 0.55 LVOT Mn Michael: 0.38 LVOT VTI: 0.09 LVOT Pk Grad: 1.00 LVOT Mn Grad: 1.00 LVOT Diam: 2.50 LVOT Area: 4.91 Diastolic Function MV Pk E: 0.88 Right Ventricle TAPSE (mm): 15.50 TVS' Michael: 8.16 Tricuspid Valve TR Pk Michael: 1.79 TR Pk Grad: 13.00 RA Press: 3.00 RVSP: 16.00 Great Vessels Aorta Sinus of Valsalva: 3.70 2.0-3.5 cm Ao Asc: 3.50 2.1-3.4 cm Pulmonary Valve PV Pk Michael: 0.67 Peak PV Grad: 2.00 Updated in Other Vendor System with Status of Final Jonas Freitas MD electronically signed on 08/04/2024 3:25:28 PM with status of Final
== END ==
LOC: HO.CARD 07:49
PROVIDERS: PCP Internal Medicine; Visit Provider Internal Medicine Cardiovascular Disease
DX: I48.19 Other persistent atrial fibrillation (principal)
CPT/HCPCS: 93306; Q9957

== ENCOUNTER → 2024-08-04 07:56 | Outpatient (BNV) | payer MEDICARE, SELFPAY | PROVIDERS: PCP Internal Medicine; Visit Provider Internal Medicine Cardiovascular Disease | DX: I48.19 Other persistent atrial fibrillation (principal) | CPT/HCPCS: 93306 ==

== ENCOUNTER 2024-08-05 07:51 | Outpatient (AMB) | payer MEDICARE, SELFPAY ==
[2024-08-05 08:08] LABS: Prothrombin Time Whole Bld POC 37.4 sec (11.1-13.5); ~PT, ~INR - Anti Coag Clinic 3.1 (0.9-1.1)
--- NOTE | 2024-08-05 08:15 | MHC.OFFVISCO ---
Intake Intake Visit Reasons: Anticoagulation Allergies No Known Allergies [No Known Allergies*] Allergy (Verified 08/05/24 08:00) Medication List - Last Reconciled 08/05/24 by Adriane Schmidt RN atorvastatin 20 mg PO DAILY cilostazol 100 mg PO .qd fluticasone propionate 50 mcg/actuation 1 spray intranasal BID PRN hydrochlorothiazide 25 mg PO DAILY metoprolol succinate ER 25 mg PO DAILY nifedipine ER 60 mg PO DAILY umeclidinium 62.5 mcg/actuation (Incruse Ellipta) 1 inh inhalation DAILY varenicline tartrate mg PO warfarin 5 mg See Protocol PO DAILY Nursing Note INR: 3.1 almost in therapeutic range Medications and supplements reviewed on generic chantix and quit smoking x 1 full week now !!!! which can raise the INR - will decrease weekly dose will be going for cardioversion in the future- explained he will require 4 weekly therapeutic INRs prior and after Denies any signs and symptoms of bleeding or bruising or clotting. Bleeding, bruising, clotting discussed Nutritional guidance given Dose: decrease due to smoking cessation 2.5mg x 4 days/ 5mg x 3 days F/U INR: 2-3 weeks per date of cardioversion Patient verbalizes understanding of instructions given with read back Anti-Coag Initial Assessment Social Hx Patient Tobacco Use Status: Current someday Tobacco user Tobacco use type: Cigarette alcohol intake: former Alcohol intake frequency: former alcohol drinker Cardiovascular Hx: HTN, SD, Arrhythmias and Other Lung Disease HX: COPD and Emphysema Blood Disorder Hx: Hyperlipidemia Cancer HX: No Psych. Illness/Depression: No Anti-Coag. Education Record Education Intervention/Brief Description of Teaching 9. Demonstrates understanding of notifying all providers of pending dental 10. 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
== END 2024-08-05 08:22 | disposition home or self-care (01) ==
LOC: HO.ACS 07:51
PROVIDERS: PCP Internal Medicine; Visit Provider Internal Medicine Medical Oncology
DX: Z79.01 Long term (current) use of anticoagulants (principal)

== ENCOUNTER → 2024-08-05 07:51 | Outpatient (BNVA) | payer MEDICARE, SELFPAY | PROVIDERS: PCP Internal Medicine; Visit Provider Internal Medicine Medical Oncology | DX: I48.0 Paroxysmal atrial fibrillation (principal); Z51.81 Encounter for therapeutic drug level monitoring; Z79.01 Long term (current) use of anticoagulants | CPT/HCPCS: 85610; 99211 ==

== ENCOUNTER 2024-08-25 08:24 | Outpatient (AMB) | payer MEDICARE, SELFPAY ==
[2024-08-25 08:38] LABS: Prothrombin Time Whole Bld POC 25.5 sec (11.1-13.5); ~PT, ~INR - Anti Coag Clinic 2.1 (0.9-1.1)
--- NOTE | 2024-08-25 08:41 | MHC.OFFVISCO ---
Intake Intake Visit Reasons: Anticoagulation Allergies No Known Allergies [No Known Allergies*] Allergy (Verified 08/25/24 08:25) Medication List - Last Reconciled 08/25/24 by Britany Teran RN atorvastatin 20 mg PO DAILY cilostazol 100 mg PO .qd fluticasone propionate 50 mcg/actuation 1 spray intranasal BID PRN hydrochlorothiazide 25 mg PO DAILY metoprolol succinate ER 25 mg PO DAILY nifedipine ER 60 mg PO DAILY umeclidinium 62.5 mcg/actuation (Incruse Ellipta) 1 inh inhalation DAILY varenicline tartrate mg PO warfarin 5 mg See Protocol PO DAILY Nursing Note INR: 2.1 in therapeutic range of 2-3 Medications and supplements reviewed Pt is 3 weeks post quitting smoking No changes in health, diet, medications, or supplements, Denies any signs and symptoms of bleeding or bruising or clotting. Bleeding, bruising, clotting discussed Nutritional guidance given to avoid greens and to have a serving of foods that raise the INR Dose: 2.5mg X 4 days and 5mg X 3 days F/U INR: 2 weeks Patient verbalizes understanding of instructions given Anti-Coag Initial Assessment Social Hx Patient Tobacco Use Status: Current someday Tobacco user Tobacco use type: Cigarette alcohol intake: former Alcohol intake frequency: former alcohol drinker Cardiovascular Hx: HTN, PR, Arrhythmias and Other Lung Disease HX: COPD and Emphysema Blood Disorder Hx: Hyperlipidemia Cancer HX: No Psych. 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
== END 2024-08-25 08:43 | disposition home or self-care (01) ==
LOC: HO.ACS 08:24
PROVIDERS: PCP Internal Medicine; Visit Provider Internal Medicine Medical Oncology
DX: Z79.01 Long term (current) use of anticoagulants (principal)

== ENCOUNTER → 2024-08-25 08:24 | Outpatient (BNVA) | payer MEDICARE, SELFPAY | PROVIDERS: PCP Internal Medicine; Visit Provider Internal Medicine Medical Oncology | DX: I48.19 Other persistent atrial fibrillation (principal); R06.09 Other forms of dyspnea; I48.0 Paroxysmal atrial fibrillation; Z79.01 Long term (current) use of anticoagulants; Z51.81 Encounter for therapeutic drug level monitoring | CPT/HCPCS: 85610; 99211; 99212 ==

== ENCOUNTER 2024-08-25 13:45 | Outpatient (AMB) | payer MEDICARE, SELFPAY ==
[2024-08-25 14:15] VITALS: BP 128/68; PULSE 82; BMI 24.1
--- NOTE | 2024-08-25 14:15 | A.OFFVIS_ITS ---
Vital Signs 08/25/24 14:15 Height 5 ft 9 in Weight 163 lb 2.273 oz BMI 24.1 BP 128/68 Blood Pressure Location Lt brachial Position Sitting Pulse 82 Intake Visit Reasons: Follow up after Echo Intake Note: Follow-up after echo feeling good Screen Machine Operator Required: No Allergies No Known Allergies [No Known Allergies*] Allergy (Verified 08/25/24 08:25) Medication List - Last Reconciled 08/25/24 by Jonas Freitas MD atorvastatin 20 mg PO DAILY cilostazol 100 mg PO .qd fluticasone propionate 50 mcg/actuation 1 spray intranasal BID PRN hydrochlorothiazide 25 mg PO DAILY metoprolol succinate ER 25 mg PO DAILY nifedipine ER 60 mg PO DAILY umeclidinium 62.5 mcg/actuation (Incruse Ellipta) 1 inh inhalation DAILY varenicline tartrate mg PO warfarin 5 mg See Protocol PO DAILY HPI Comments Details: Sukh comes for follow-up. Continues to have symptoms of exertional shortness of breath which limits his activity level. At current point time he remains in atrial fibrillation. Recent echocardiogram shows that his LV ejection fraction low normal with new wall motion abnormality in the apex. He was no prior history of known significant coronary artery disease. Patient denies any clear orthopnea, PND, leg edema. No lightheadedness, syncope. No actual exertional chest pain. [facility] Medical History Diverticulosis Ischemic cardiomyopathy Carotid disease, bilateral PVD (peripheral vascular disease) PVCs (premature ventricular contractions) Paroxysmal atrial fibrillation Cardiac arrhythmia, unspecified Neoplasm COPD (chronic obstructive pulmonary disease) Hypercholesteremia HTN (hypertension) AAA (abdominal aortic aneurysm) [place] (hard of hearing) Myocardial infarct Surgical History Hx of vasectomy H/O colonoscopy Hx of endarterectomy History of shoulder surgery Family History Mother Myocardial infarct Sister Cancer Father No problems noted. 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 [employer] Current occupational exposures/hazards: No Review of Systems Const Denies chills, Denies fatigue, Denies fever(s), Denies frequent falls, Denies weakness, Denies weight gain and Denies weight loss ENT Denies dizziness Card Denies chest pain, Denies leg edema, Denies lightheadedness, Denies palpitations, Denies dyspnea, Denies dyspnea on exertion, Denies orthopnea and Denies other (loss of consciousness) Resp Denies cough, Denies dyspnea and Denies dyspnea on exertion GI Denies hematochezia and Denies change in stool character Musc Denies abnormal gait, Denies muscle weakness, Denies numbness, Denies radiating pain into limb and Denies tingling Neuro Denies abnormal gait, Denies dizziness, Denies frequent falls, Denies numbness, Denies tingling and Denies weakness Endo Denies fatigue and Denies palpitations Physical Exam Vital Signs: Last Vital Signs Pulse 82 08/25/24 14:15 BP 128/68 08/25/24 14:15 BMI result Body Mass Index 24.1 Const General: cooperative, comfortable, no acute distress, alert and awake Nutritional Appearance: thin Orientation/consciousness: patient oriented x3 Limitations: no limitations Neck Neck: Yes trachea midline, Yes supple and Yes no JVD Carotids: bruit bilateral Resp Effort & Inspection: normal respiratory effort Auscultation: no rales, no wheezes and diminished lung sounds Cardio Jugular venous distension: no JVD Palpation: normal PMI Rhythm: abnormal rhythm irregularly irregular Heart sounds: S1 normal heart sound present, S2 normal heart sound present and Murmur heart sound present systolic (Ejection systolic) Peripheral pulses: other (Reduced bilateral distal) GI Auscultation: normal bowel sounds Skin General skin exam: no rashes or lesions noted Neuro General: patient oriented x3 and no focal motor deficits Extrem General: Yes no clubbing, cyanosis or edema Results AMB INR Fingerstick AMB INR Fingerstick 2.1 Last Edit by Britany Teran RN on 08/25/24 08:32 interface delay Assessment & Plan Assessment & Plan (1) Exertional dyspnea: Code(s): R06.09 - Other forms of dyspnea Category: Medical Plan: Exertional shortness of breath in his gentleman with significant risk factors for obstructive coronary artery disease. Most likely related to persistent atrial fibrillation with loss of AV synchrony. Would suggest to pursue rhythm control approach will. Also could be related to significant underlying obstructive coronary artery disease. Would suggest a vasodilating myocardial perfusion imaging in the future. He was significant risk factors for the same. Continue high-intensity statin therapy. (2) Persistent atrial fibrillation: Code(s): I48.19 - Other persistent atrial fibrillation Category: Medical Plan: Management to pursue rhythm control approach discussed with him. Will start him on Multaq 400 mg b.i.d.. Will need INR on the day of cardioversion to make sure that his INRs above 2 to pursue synchronized cardioversion. Discussed with him. He is not interested in starting on direct oral anticoagulant therapy at this point time. Risks benefits, alternatives to cardioversion were discussed. He understands and agrees. Will follow with him after cardioversion. Thank you for allowing me to partake in his care Orders: Orders Cardioversion 9 Days I48.19 - Other persistent atrial fibrillation CA lexiscan stress w katelyn 08/25/24 I48.19 - Other persistent atrial fibrillation Medications: New losartan 25 mg PO DAILY 30 tabs 3RF dronedarone (Multaq) must administer with a meal/food. Start 09/01/24 400 mg PO BID 60 tabs 2RF Discontinued metoprolol succinate ER Discontinued Reason: Doctor's Order 25 mg PO DAILY 90 tabs 3RF Coding Level of Care Code Est Pt Level 4 (43548) Complex EM visit Add On G2211 Diagnoses Exertional dyspnea R06.09 Persistent atrial fibrillation I48.19
== END 2024-08-25 15:03 | disposition home or self-care (01) ==
LOC: HO.HCS 13:45
PROVIDERS: PCP Internal Medicine; Visit Provider Internal Medicine Cardiovascular Disease
DX: R06.09 Other forms of dyspnea (principal); I48.19 Other persistent atrial fibrillation
CPT/HCPCS: 99214; G2211

== ENCOUNTER 2024-09-03 10:03 | Day surgery (SDC) | payer MEDICARE, SELFPAY ==
[2024-08-29 14:28] VITALS: BMI 24.1
--- NOTE | 2024-09-02 08:58 | P.CONAN_ITS ---
Documented by User: Hilary García NP 09/02/24 09:06 HPI - Anesthesia Eval Consult details Narrative: 79yo M for Cardioversion Coumadin for afib Follows [facility] vascular for PAD s/p bilat fem endarterectomy, +R ICA stenosis. Stable for 1 year f/u [facility] Active Problems Active Problems: All Active Problems Exertional dyspnea (Acute) Persistent atrial fibrillation (Acute) Current use of anticoagulant therapy (Acute) Carotid disease, bilateral (Acute) HTN (hypertension) (Acute) PVCs (premature ventricular contractions) (Acute) Paroxysmal atrial fibrillation (Acute) Past Medical History Medical History Diverticulosis Ischemic cardiomyopathy Carotid disease, bilateral PVD (peripheral vascular disease) PVCs (premature ventricular contractions) Paroxysmal atrial fibrillation Cardiac arrhythmia, unspecified Neoplasm COPD (chronic obstructive pulmonary disease) Hypercholesteremia HTN (hypertension) AAA (abdominal aortic aneurysm) [place] (hard of hearing) Myocardial infarct Family History Family History Mother Myocardial infarct Sister Cancer Father No problems noted. 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 [employer] Current occupational exposures/hazards: No Meds Allergies Allergy/AdvReac Type Severity Reaction Status Date / Time No Known Allergies Allergy Verified 09/03/24 10:41 [No Known Allergies*] Home Medications ?Medication ?Instructions ?Recorded ?Confirmed ?Last Taken ?Type atorvastatin 20 mg tablet 20 mg PO DAILY 01/10/21 09/03/24 09/03/24 History nifedipine 60 mg tablet,extended 60 mg PO DAILY 01/10/21 09/03/24 09/03/24 History release cilostazol 100 mg tablet 100 mg PO DAILY 07/11/21 09/03/24 09/03/24 History umeclidinium 62.5 mcg/actuation 1 inh inhalation DAILY 03/19/23 09/03/24 09/03/24 History blister powder for inhalation (Incruse Ellipta) fluticasone propionate 50 1 spray intranasal BID PRN Nasal 07/07/24 08/29/24 09/02/24 History mcg/actuation nasal Congestion spray,suspension varenicline tartrate 1 mg tablet 1 mg PO BID 08/05/24 08/29/24 Unknown History Exam Height,Weight and Vital Signs: Height 5 ft 9 in Weight 74 kg Pertinent Lab Results Pertinent Lab Results: CBC and BMP 03/2024 from [facility] Narrative Narrative: ECHO 07/2024 Conclusions: - 1. Low normal LV ejection fraction of 50-55% with wall motion abnormality at the apex 2. Normal cardiac valvular Dopplers 3. Normal RV systolic pressure 4. Upper limits of normal ascending aortic size Assessment and Plan Assessment Anesthesia Assessment: Chart Reviewed Documented by User: Karma Almendarez MD 09/03/24 10:59 [facility] Past Medical History Medical History Diverticulosis Ischemic cardiomyopathy Carotid disease, bilateral PVD (peripheral vascular disease) PVCs (premature ventricular contractions) Paroxysmal atrial fibrillation Cardiac arrhythmia, unspecified Neoplasm COPD (chronic obstructive pulmonary disease) Hypercholesteremia HTN (hypertension) AAA (abdominal aortic aneurysm) [place] (hard of hearing) Myocardial infarct Family History Family History Mother Myocardial infarct Sister Cancer Father No problems noted. 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 [employer] Current occupational exposures/hazards: No Meds Allergies Allergy/AdvReac Type Severity Reaction Status Date / Time No Known Allergies Allergy Verified 09/03/24 10:41 [No Known Allergies*] Home Medications ?Medication ?Instructions ?Recorded ?Confirmed ?Last Taken ?Type atorvastatin 20 mg tablet 20 mg PO DAILY 01/10/21 09/03/24 09/03/24 History nifedipine 60 mg tablet,extended 60 mg PO DAILY 01/10/21 09/03/24 09/03/24 History release cilostazol 100 mg tablet 100 mg PO DAILY 07/11/21 09/03/24 09/03/24 History umeclidinium 62.5 mcg/actuation 1 inh inhalation DAILY 03/19/23 09/03/24 09/03/24 History blister powder for inhalation (Incruse Ellipta) fluticasone propionate 50 1 spray intranasal BID PRN Nasal 07/07/24 08/29/24 09/02/24 History mcg/actuation nasal Congestion spray,suspension varenicline tartrate 1 mg tablet 1 mg PO BID 08/05/24 08/29/24 Unknown History Exam Airway Mallampati Class: II TM Dist: >3cm Neck ROM: Full Denture: Upper and Lower Heart: rrr Lungs: cta Assessment and Plan Assessment Anesthesia Assessment: Anesthesia Plan Discussed Final Anesthetic Review Family History of Problems with Anesthesia: No History of Problems with Anesthesia: No NPO: Yes ASA Class: III Final Preanesthetic Review: No Changes in Pt Med Stat, Meds/Allgs Chart Reviewed and Consent Obtained/Reviewed Patient Risk: Intermediate Procedure Risk: Intermediate Anesthetic Plan Anesthetic Plan: GA Disposition: Standard PACU
--- NOTE | 2024-09-03 10:26 | MHC.SHP ---
Pre-Procedural Eval Section A - 24 Hr Update-Section A only Date of Service: 09/03/24 The patient is an INPATIENT: No Changes since office visit: Yes Changes in Medication and Yes Patient answered all questions; No Cold of Flu in the past 2 weeks and No New Medical Problems The patient has been examined within 24 hours of the surgical procedure. The History & Physical has been completed within 30 days and I have reviewed it.: Yes Section B - Complete if H&P > 30 days Chief Complaint: Other persistent atrial fibrillation Allergies: Allergies Allergy/AdvReac Type Severity Reaction Status Date / Time No Known Allergies Allergy Verified 08/25/24 08:25 [No Known Allergies*] Plan I have reviewed the history and physical and performed a pertinent physical examination on my patient. No changes have occurred unless specified. Time Spent With Patient Time: Total time managing care of this patient today ____ minutes.
[2024-09-03 10:28] VITALS: BMI 23.4
[2024-09-03 10:40] VITALS: BP 114/52; PULSE 104; RESP 20; TEMP 36.3; O2SAT 95
[2024-09-03] MEDS: Lactated Ringers 1,000 ML 100 ML IVCONT (10:57)
[2024-09-03 10:59] LABS: INTERNATIONAL NORM RATIO 2.3 (0.9-1.1); Prothrombin Time 27.1 SEC (10.9-12.4)
[2024-09-03 12:12] VITALS: BP 96/52; PULSE 77; RESP 26; TEMP 36.4; O2SAT 94
[2024-09-03 12:17] VITALS: BP 91/47; PULSE 68; RESP 22; O2SAT 99
--- NOTE | 2024-09-03 12:18 | ECG_ITS ---
Test Reason : post cardioversion Blood Pressure : */* mmHG Vent. Rate : 74 BPM Atrial Rate : 74 BPM P-R Int : 190 ms QRS Dur : 96 ms QT Int : 410 ms P-R-T Axes : 70 -64 71 degrees QTcB Int : 455 ms Normal sinus rhythm Left axis deviation Possible Anterior infarct (cited on or before 10-Jul-2017) Abnormal ECG When compared with ECG of 08-Nov-2020 12:14, No significant change was found Referred By: Jonas Freitas Electronically Signed By: VICENTE LONG
--- NOTE | 2024-09-03 12:19 | HO.CARDIVERS ---
Cardioversion Procedure Note Cardioversion Date of Procedure: 09/03/2024 Ordering Provider: Willi Freitas Performing Provider: willi Freitas Indication for Procedure: Persistent atrial fibrillation Pre-Op Diagnosis: Persistent atrial fibrillation Post-Op Diagnosis: Normal sinus rhythm Performed with Transesophageal Echo: No Consent: Verbal and Written consent was obtained from the patient before starting and after confirming INR at 2.3 and oral antiarrhythmic use. The patient was made aware of the risk of synchronized cardioversion including benefits and alternatives Procedure: After consent obtained, cardioversion pads were attached in anteroposterior configuration and the patient was sedated by the anesthesia team. Once adequate sedation achieved, patient was delivered 200 joules of biphasic energy in anteroposterior configuration x2 Complications: None Impression: Successful conversion to sinus rhythm Recommendations: 1. 12 lead EKG 2. Check INR in 1 week 3. Follow up in the clinic in 4 weeks 4. Continue Multaq
[2024-09-03 12:20] VITALS: BP 96/47; PULSE 68; RESP 24; O2SAT 99
[2024-09-03 12:25] VITALS: BP 113/82; PULSE 70; RESP 22; O2SAT 95
[2024-09-03 12:40] VITALS: BP 111/55; PULSE 68; RESP 22; TEMP 36.1; O2SAT 97
== END 2024-09-03 13:03 | disposition home or self-care (01) ==
PROVIDERS: Nurse Practitioner; PCP Internal Medicine; Visit Provider Internal Medicine Cardiovascular Disease
PROC: 5A2204Z Restoration of Cardiac Rhythm, Single (ICD-10-PCS; principal; 2024-09-03 12:00)
DX: I48.19 Other persistent atrial fibrillation (principal); R06.09 Other forms of dyspnea; I10 Essential (primary) hypertension; E78.00 Pure hypercholesterolemia, unspecified; J44.9 Chronic obstructive pulmonary disease, unspecified; Z79.01 Long term (current) use of anticoagulants; Z79.899 Other long term (current) drug therapy; Z79.51 Long term (current) use of inhaled steroids; Z98.890 Other specified postprocedural states; F17.210 Nicotine dependence, cigarettes, uncomplicated
CPT/HCPCS: 36415; 85610; 92960; 93005; J2704

== ENCOUNTER → 2024-09-03 10:03 | Outpatient (BNV) | payer MEDICARE, SELFPAY | PROVIDERS: PCP Internal Medicine; Visit Provider Internal Medicine Cardiovascular Disease | DX: I48.19 Other persistent atrial fibrillation (principal); R94.31 Abnormal electrocardiogram [ECG] [EKG] | CPT/HCPCS: 92960; 93010 ==

== ENCOUNTER 2024-09-08 08:22 | Outpatient (AMB) | payer MEDICARE, SELFPAY ==
[2024-09-08 08:38] LABS: Prothrombin Time Whole Bld POC 30.5 sec (11.1-13.5); ~PT, ~INR - Anti Coag Clinic 2.5 (0.9-1.1)
--- NOTE | 2024-09-08 09:04 | MHC.OFFVISCO ---
Intake Intake Visit Reasons: Anticoagulation Allergies No Known Allergies [No Known Allergies*] Allergy (Verified 09/08/24 08:26) Medication List - Last Reconciled 09/08/24 by Adriane Schmidt RN atorvastatin 20 mg PO DAILY cilostazol 100 mg PO DAILY dronedarone (Multaq) 400 mg PO BID fluticasone propionate 50 mcg/actuation 1 spray intranasal BID PRN losartan 25 mg PO DAILY nifedipine ER 60 mg PO DAILY umeclidinium 62.5 mcg/actuation (Incruse Ellipta) 1 inh inhalation DAILY warfarin 5 mg See Protocol PO DAILY Nursing Note INR: 2.5 in therapeutic range Medications and supplements reviewed- med changes multaq and losartan, metoprolol d/c s/p cardioversion quit smoking x 1month - can raise the INR Pt on multaq 400mg po bid as of 09/01/24 1 week- can significantly raise INR. Possible INR increase at 10 day period. His warfarin dose was decreased 08/05/24 due to smoking cessation to 5mg x 3 days/ 2.5mg x 4 days. His warfarin dose will be decreased again to 5mg x 2 days/ 2.5mg x 5 days this week He will have another INR recheck this week 09/10/24Sun. (pt unable to have appts or Fridays r/t other commitments) Denies any signs and symptoms of bleeding or bruising or clotting. Denies any c/p or new sob. Bleeding, bruising, clotting discussed Nutritional guidance given Dose: 5mg x 2 days/ 2.5mg x 5 days F/U INR: 09/10/24Sun Patient verbalizes understanding of instructions given with read back Anti-Coag Initial Assessment Social Hx Patient Tobacco Use Status: Current someday Tobacco user Tobacco use type: Cigarette alcohol intake: former Alcohol intake frequency: former alcohol drinker Cardiovascular Hx: HTN, [place], Arrhythmias and Other Lung Disease HX: COPD and Emphysema Blood Disorder Hx: Hyperlipidemia Cancer HX: No Psych. 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
== END 2024-09-08 09:10 | disposition home or self-care (01) ==
LOC: HO.ACS 08:22
PROVIDERS: PCP Internal Medicine; Visit Provider Internal Medicine Medical Oncology
DX: Z79.01 Long term (current) use of anticoagulants (principal)

== ENCOUNTER → 2024-09-08 08:22 | Outpatient (BNVA) | payer MEDICARE, SELFPAY | PROVIDERS: PCP Internal Medicine; Visit Provider Internal Medicine Medical Oncology | DX: I48.0 Paroxysmal atrial fibrillation (principal); Z79.01 Long term (current) use of anticoagulants; Z51.81 Encounter for therapeutic drug level monitoring | CPT/HCPCS: 85610; 99211 ==

== ENCOUNTER 2024-09-10 08:23 | Outpatient (AMB) | payer MEDICARE, SELFPAY ==
--- NOTE | 2024-09-10 08:42 | MHC.OFFVISCO ---
Intake Intake Visit Reasons: Anticoagulation Allergies No Known Allergies [No Known Allergies*] Allergy (Verified 09/10/24 08:36) Medication List - Last Reconciled 09/10/24 by Anahy Deng RN atorvastatin 20 mg PO DAILY cilostazol 100 mg PO DAILY dronedarone (Multaq) 400 mg PO BID fluticasone propionate 50 mcg/actuation 1 spray intranasal BID PRN losartan 25 mg PO DAILY nifedipine ER 60 mg PO DAILY umeclidinium 62.5 mcg/actuation (Incruse Ellipta) 1 inh inhalation DAILY warfarin 5 mg See Protocol PO DAILY Nursing Note INR: 2.4- in therapeutic range of 2-3 Medications and supplements reviewed- hctz d/c, metoprolol d/c, now on losartan - no interaction with warfarin, multaq- which can raise inr No changes in health, diet, medications, or supplements, Denies any signs and symptoms of bleeding or bruising or clotting. Bleeding, bruising, clotting discussed Nutritional guidance given Dose: cont 5mg x 2, 2.5mg x 5 F/U INR: 09/15/24 Patient verbalizes understanding of instructions given pt s/p cardioversion on 09/03/24 Anti-Coag Initial Assessment Social Hx Patient Tobacco Use Status: Current someday Tobacco user Tobacco use type: Cigarette alcohol intake: former Alcohol intake frequency: former alcohol drinker Cardiovascular Hx: HTN, [place], Arrhythmias and Other Lung Disease HX: COPD and Emphysema Blood Disorder Hx: Hyperlipidemia Cancer HX: No Psych. 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
[2024-09-10 08:43] LABS: Prothrombin Time Whole Bld POC 28.3 sec (11.1-13.5); ~PT, ~INR - Anti Coag Clinic 2.4 (0.9-1.1)
== END 2024-09-10 08:49 | disposition home or self-care (01) ==
LOC: HO.ACS 08:23
PROVIDERS: PCP Internal Medicine; Visit Provider Internal Medicine Medical Oncology
DX: Z79.01 Long term (current) use of anticoagulants (principal)

== ENCOUNTER → 2024-09-10 08:23 | Outpatient (BNVA) | payer MEDICARE, SELFPAY | PROVIDERS: PCP Internal Medicine; Visit Provider Internal Medicine Medical Oncology | DX: I48.0 Paroxysmal atrial fibrillation (principal); Z79.01 Long term (current) use of anticoagulants; Z51.81 Encounter for therapeutic drug level monitoring | CPT/HCPCS: 85610; 99211 ==

== ENCOUNTER 2024-09-15 10:44 | Outpatient (AMB) | payer MEDICARE, SELFPAY ==
[2024-09-15 11:00] LABS: Prothrombin Time Whole Bld POC 30.6 sec (11.1-13.5); ~PT, ~INR - Anti Coag Clinic 2.6 (0.9-1.1)
--- NOTE | 2024-09-15 11:20 | MHC.OFFVISCO ---
Intake Intake Visit Reasons: Anticoagulation Allergies No Known Allergies [No Known Allergies*] Allergy (Verified 09/15/24 10:53) Medication List - Last Reconciled 09/15/24 by Britany Teran, LIZANDRO atorvastatin 20 mg PO DAILY cilostazol 100 mg PO DAILY dronedarone (Multaq) 400 mg PO BID fluticasone propionate 50 mcg/actuation 1 spray intranasal BID PRN losartan 25 mg PO DAILY nifedipine ER 60 mg PO DAILY umeclidinium 62.5 mcg/actuation (Incruse Ellipta) 1 inh inhalation DAILY warfarin 5 mg See Protocol PO DAILY Nursing Note INR: 2.6 in therapeutic range of 2-3 S/P cardioversion on 09/03/24 Pt states he saw PCP this morning and EKG was done which showed afib. EKG was faxed to cariologist Dr Freitas. Pt states he is tired and gets short of breath with exertion. Medications and supplements reviewed No changes in health, diet, medications, or supplements, Denies any signs and symptoms of bleeding or bruising or clotting. Bleeding, bruising, clotting discussed Nutritional guidance given Dose: 2.5mg X 5 days and 5mg X 2 days F/U INR: 2 days due to multaq Patient verbalizes understanding of instructions given Anti-Coag Initial Assessment Social Hx Patient Tobacco Use Status: Current someday Tobacco user Tobacco use type: Cigarette alcohol intake: former Alcohol intake frequency: former alcohol drinker Cardiovascular Hx: HTN, [place], Arrhythmias and Other Lung Disease HX: COPD and Emphysema Blood Disorder Hx: Hyperlipidemia Cancer HX: No Psych. 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
== END 2024-09-15 11:32 | disposition home or self-care (01) ==
LOC: HO.ACS 10:44
PROVIDERS: PCP Internal Medicine; Visit Provider Internal Medicine Medical Oncology
DX: Z79.01 Long term (current) use of anticoagulants (principal)

== ENCOUNTER → 2024-09-15 10:44 | Outpatient (BNVA) | payer MEDICARE, SELFPAY | PROVIDERS: PCP Internal Medicine; Visit Provider Internal Medicine Medical Oncology | DX: I48.0 Paroxysmal atrial fibrillation (principal); Z51.81 Encounter for therapeutic drug level monitoring; Z79.01 Long term (current) use of anticoagulants | CPT/HCPCS: 85610; 99211 ==

== ENCOUNTER 2024-09-16 08:16 | Outpatient (REF) | payer MEDICARE, SELFPAY ==
[2024-09-16 11:13] LABS: B Type Natriuretic Peptide 192 pg/mL (<100)
== END 2024-09-16 08:17 | disposition home or self-care (01) ==
LOC: HO.HMGCLDS 08:16
PROVIDERS: PCP Internal Medicine; Visit Provider Internal Medicine Cardiovascular Disease
DX: I48.0 Paroxysmal atrial fibrillation (principal); R06.09 Other forms of dyspnea
CPT/HCPCS: 36415; 83880

== ENCOUNTER 2024-09-17 13:17 | Outpatient (AMB) | payer MEDICARE, SELFPAY ==
[2024-09-17 13:43] LABS: Prothrombin Time Whole Bld POC 27.5 sec (11.1-13.5); ~PT, ~INR - Anti Coag Clinic 2.3 (0.9-1.1)
--- NOTE | 2024-09-17 13:56 | MHC.OFFVISCO ---
Intake Intake Visit Reasons: Anticoagulation Allergies No Known Allergies [No Known Allergies*] Allergy (Verified 09/17/24 13:36) Medication List - Last Reconciled 09/17/24 by Paige Ocasio RN atorvastatin 20 mg PO DAILY cilostazol 100 mg PO DAILY dronedarone (Multaq) 400 mg PO BID fluticasone propionate 50 mcg/actuation 1 spray intranasal BID PRN furosemide 20 mg PO DAILY losartan 25 mg PO DAILY metoprolol succinate ER (Toprol XL) 50 mg PO BID nifedipine ER 60 mg PO DAILY umeclidinium 62.5 mcg/actuation (Incruse Ellipta) 1 inh inhalation DAILY warfarin 5 mg See Protocol PO DAILY Nursing Note MED ADJUSTMENTS THIS WEEK: MULTAQ D/C'D AND METOPROLOL WAS INCREASED TO 50MGM BID. HAS STARTED LASIX 20MGM DAILY. OTHERWISE PT.STATES THAT HE REMAINS SOMEWHAT FATIGUED AWITH OCCAIS.SOB. PT.DENIES ANY CP OR SX OF BLEEDING. CONTINUE PRESENT DOSE AND FOLLOW-UP ON 09/29(PT.WILL BE OUT OF TOWN UNTIL THEN) GOOD UNDERSTANDING OF DOSING INSTR. Anti-Coag Initial Assessment Social Hx Patient Tobacco Use Status: Current someday Tobacco user Tobacco use type: Cigarette alcohol intake: former Alcohol intake frequency: former alcohol drinker Cardiovascular Hx: HTN, [place], Arrhythmias and Other Lung Disease HX: COPD and Emphysema Blood Disorder Hx: Hyperlipidemia Cancer HX: No Psych. Illness/Depression: No Coding Level of Care Code Est Patient Level 1 Diagnoses Current use of anticoagulant therapy Z79.01 Assessment & Plan Assessment & Plan (1) Current use of anticoagulant therapy: Code(s): Z79.01 - [facility] (current) use of anticoagulants Category: Medical
== END 2024-09-17 14:23 | disposition home or self-care (01) ==
LOC: HO.ACS 13:17
PROVIDERS: PCP Internal Medicine; Visit Provider Internal Medicine Medical Oncology
DX: Z79.01 Long term (current) use of anticoagulants (principal)

== ENCOUNTER → 2024-09-17 13:17 | Outpatient (BNVA) | payer MEDICARE, SELFPAY | PROVIDERS: PCP Internal Medicine; Visit Provider Internal Medicine Medical Oncology | DX: I48.0 Paroxysmal atrial fibrillation (principal); Z51.81 Encounter for therapeutic drug level monitoring; Z79.01 Long term (current) use of anticoagulants | CPT/HCPCS: 85610; 99211 ==

== ENCOUNTER 2024-09-29 07:54 | Outpatient (AMB) | payer MEDICARE, SELFPAY ==
[2024-09-29 08:05] LABS: Prothrombin Time Whole Bld POC 24.4 sec (11.1-13.5)
--- NOTE | 2024-09-29 08:10 | MHC.OFFVISCO ---
Intake Intake Visit Reasons: Anticoagulation Allergies No Known Allergies [No Known Allergies*] Allergy (Verified 09/29/24 07:56) Medication List - Last Reconciled 09/29/24 by Adriane Schmidt RN atorvastatin 20 mg PO DAILY cilostazol 100 mg PO DAILY fluticasone propionate 50 mcg/actuation 1 spray intranasal BID PRN furosemide 20 mg PO DAILY losartan 25 mg PO DAILY metoprolol succinate ER (Toprol XL) 50 mg PO BID nifedipine ER 60 mg PO DAILY umeclidinium 62.5 mcg/actuation (Incruse Ellipta) 1 inh inhalation DAILY warfarin 5 mg See Protocol PO DAILY Nursing Note INR: 2.0 in therapeutic range Medications and supplements reviewed *multaq d/c end of August and quit smoking 2 months ago, back on metoprolol increased dose. * pt still feels tiered on KHAN states he feels it is COPD, Discused to try polmonary/cardio rehab and to discuss with md Denies any signs and symptoms of bleeding or bruising or clotting. Bleeding, bruising, clotting discussed Nutritional guidance given - cont to eat mix of fruits and vegetables Dose: increase dose back to 5mg x 3 days/ 2.5mg x 4 days now that multaq d/cd F/U INR: 2 weeks Patient verbalizes understanding of instructions given Anti-Coag Initial Assessment Social Hx Patient Tobacco Use Status: Current someday Tobacco user Tobacco use type: Cigarette alcohol intake: former Alcohol intake frequency: former alcohol drinker Cardiovascular Hx: HTN, [place], Arrhythmias and Other Lung Disease HX: COPD and Emphysema Blood Disorder Hx: Hyperlipidemia Cancer HX: No Psych. 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
== END 2024-09-29 08:17 | disposition home or self-care (01) ==
LOC: HO.ACS 07:54
PROVIDERS: PCP Internal Medicine; Visit Provider Internal Medicine Medical Oncology
DX: Z79.01 Long term (current) use of anticoagulants (principal)

== ENCOUNTER → 2024-09-29 07:54 | Outpatient (BNVA) | payer MEDICARE, SELFPAY | PROVIDERS: PCP Internal Medicine; Visit Provider Internal Medicine Medical Oncology | DX: I48.0 Paroxysmal atrial fibrillation (principal); Z79.01 Long term (current) use of anticoagulants; Z51.81 Encounter for therapeutic drug level monitoring | CPT/HCPCS: 85610; 99211 ==

== ENCOUNTER → 2024-10-07 07:44 | Outpatient (REF) | payer MEDICARE, SELFPAY | LOC: HO.CARD 07:44 | PROVIDERS: PCP Internal Medicine; Visit Provider Internal Medicine Cardiovascular Disease | DX: I48.0 Paroxysmal atrial fibrillation (principal) | CPT/HCPCS: 93242 ==

== ENCOUNTER → 2024-10-07 07:47 | Outpatient (BNV) | payer MEDICARE, SELFPAY | PROVIDERS: PCP Internal Medicine; Visit Provider Internal Medicine Cardiovascular Disease | DX: I48.91 Unspecified atrial fibrillation (principal); I49.3 Ventricular premature depolarization | CPT/HCPCS: 93244 ==

== ENCOUNTER 2024-10-13 07:59 | Outpatient (AMB) | payer MEDICARE, SELFPAY ==
[2024-10-13 08:09] LABS: Prothrombin Time Whole Bld POC 25.1 sec (11.1-13.5); ~PT, ~INR - Anti Coag Clinic 2.1 (0.9-1.1)
--- NOTE | 2024-10-13 08:14 | MHC.OFFVISCO ---
Intake Intake Visit Reasons: Anticoagulation Allergies No Known Allergies [No Known Allergies*] Allergy (Verified 10/13/24 08:05) Nursing Note INR: 2.1 in therapeutic range of 2-3 Medications and supplements reviewed No changes in health, diet, medications, or supplements, Denies any signs and symptoms of bleeding or bruising or clotting. Bleeding, bruising, clotting discussed Nutritional guidance given Dose: increase today's dose to 5mg (2.5mg) then 2.5mg X 4 days and 5mg X 3 days (//) F/U INR: 2 weeks Patient verbalizes understanding of instructions given Anti-Coag Initial Assessment Social Hx Patient Tobacco Use Status: Current someday Tobacco user Tobacco use type: Cigarette alcohol intake: former Alcohol intake frequency: former alcohol drinker Cardiovascular Hx: HTN, [place], Arrhythmias and Other Lung Disease HX: COPD and Emphysema Blood Disorder Hx: Hyperlipidemia Cancer HX: No Psych. 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
== END 2024-10-13 08:17 | disposition home or self-care (01) ==
LOC: HO.ACS 07:59
PROVIDERS: PCP Internal Medicine; Visit Provider Internal Medicine Medical Oncology
DX: Z79.01 Long term (current) use of anticoagulants (principal)

== ENCOUNTER → 2024-10-13 07:59 | Outpatient (BNVA) | payer MEDICARE, SELFPAY | PROVIDERS: PCP Internal Medicine; Visit Provider Internal Medicine Medical Oncology | DX: I48.0 Paroxysmal atrial fibrillation (principal); Z51.81 Encounter for therapeutic drug level monitoring; Z79.01 Long term (current) use of anticoagulants | CPT/HCPCS: 85610; 99211 ==

== ENCOUNTER 2024-10-27 | Outpatient (REF) | payer MEDICARE, SELFPAY ==
--- OUTSIDE RECORDS SUMMARY | 2024-11-11 09:29 | XMS_ITS | Patient Health Record ---
Author Organization [facility] Address [address] [place] [id number] Care Team Providers Care Excel Developer Name Role Phone Shaka Hare MD Primary Care Provider Eder Reyna Unavailable [phone] Reason For Referral No Information Medications Medication [...] Problem Status W/U Status Risk Notes Problem [id number] Encounter for screening for malignant neoplasm of colon (Z12.11) Active confirmed Problem [id number] History of adenomatous polyp of colon (Z86.010) Active confirmed Problem [id number] Preprocedural examination (Z01.818) Active confirmed Plan Of Treatment Future Test Test Name Order Date COLONOSCOPY 06/13/2017 Insurance Providers Payer Name Payer Address Payer Phone Subscriber Number Group Number Insured Name Patient Relationship to Insured Coverage Start Date Coverage End Date [facility] [address] [place], [place] [id number] LISA ROBERTSON Self - patient is the insured Medical (General) History Medical History History ICD Code Denies [place],DM,CVA,Lung disease,renal dise ase Hypertension Hyperlipidemia Sees Dr. Tian --vascular surgeon--re: claudication--on Cilostazol Colonoscopies in 2003 and 11 with small tubular adenomas removed, diverticulosis, and internal hemorrhoids Surgical History Surgery Date(Month/Year) Right Shoulder dislocation
== END 2024-10-27 00:01 | disposition home or self-care (01) ==
LOC: CF
PROVIDERS: PCP Internal Medicine; Visit Provider Internal Medicine Medical Oncology
DX: Z79.01 Long term (current) use of anticoagulants (principal)
CPT/HCPCS: 85610; 99211

== ENCOUNTER 2024-10-27 08:01 | Outpatient (AMB) | payer MEDICARE, SELFPAY ==
--- NOTE | 2024-10-27 08:27 | MHC.OFFVISCO ---
Intake Intake Visit Reasons: Anticoagulation Allergies No Known Allergies [No Known Allergies*] Allergy (Verified 10/27/24 08:23) Medication List - Last Reconciled 10/27/24 by Britany Teran RN atorvastatin 20 mg PO DAILY cilostazol 100 mg PO DAILY fluticasone propionate 50 mcg/actuation 1 spray intranasal BID PRN furosemide 20 mg PO DAILY losartan 25 mg PO DAILY metoprolol succinate ER (Toprol XL) 50 mg PO BID nifedipine ER 60 mg PO DAILY umeclidinium 62.5 mcg/actuation (Incruse Ellipta) 1 inh inhalation DAILY warfarin 5 mg See Protocol PO DAILY Nursing Note INR: 2.5 in therapeutic range of 2-3 Pt to have stress test today Medications and supplements reviewed No changes in health, diet, medications, or supplements, Denies any signs and symptoms of bleeding or bruising or clotting. Bleeding, bruising, clotting discussed Nutritional guidance given Dose: keep same dose of 2.5mg X 4 days and 5mg X 3 days F/U INR: 2 weeks Patient verbalizes understanding of instructions given Anti-Coag Initial Assessment Social Hx Patient Tobacco Use Status: Current someday Tobacco user Tobacco use type: Cigarette alcohol intake: former Alcohol intake frequency: former alcohol drinker Cardiovascular Hx: HTN, [place], Arrhythmias and Other Lung Disease HX: COPD and Emphysema Blood Disorder Hx: Hyperlipidemia Cancer HX: No Psych. 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
[2024-10-27 08:28] LABS: ~PT, ~INR - Anti Coag Clinic 2.5 (0.9-1.1)
== END 2024-10-27 08:34 | disposition home or self-care (01) ==
LOC: HO.ACS 08:01
PROVIDERS: PCP Internal Medicine; Visit Provider Internal Medicine Medical Oncology
DX: Z79.01 Long term (current) use of anticoagulants (principal)

== ENCOUNTER 2024-11-10 08:00 | Outpatient (AMB) | payer MEDICARE, SELFPAY ==
--- OUTSIDE RECORDS SUMMARY | 2024-11-10 08:02 | XMS_ITS | Patient Health Record ---
Author Organization [facility] Address [address] [place] [id number] Care Team Providers Care Meter Tester Polyphase Name Role Phone Shaka Hare MD Primary Care Provider Eder Reyna Unavailable [phone] Reason For Referral No Information Medications Medication SIG (Take, Route, Frequency, Duration) Notes Start Date End Date Status NIFEdipine 60 MG Orally Act deanna Atorvastatin Calcium 80 MG 1 tablet Oral ly Once a day Active Cilostazol 50 MG 1 tablet 30 minutes before or 2 hours after breakfast and dinner Orally Twice a day Active hydroCHLOROthiazide 25 MG 1 tablet in th e morning Orally Once a day Active Social History Tobacco Use: Social History Observation Description Date Details (start date - stop date) Current Smoker NA - NA Tobacco Use/Smoking Question Answer Notes Patient is a current smoker How often do you smoke cigarettes? every day How many cigarettes a day do you smoke? 6-10 How soon after you wake up do you smoke your fir st cigarette? after 60 minutes Are you interested in quitting? Ready to quit Alcohol Screen Question Answer Notes Did you have a drink containing alcohol in the p ast year? 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 Problems Problem Type SNOMED Code ICD Code Onset Dates Problem Status W/U Status Risk Notes Problem [id number] Encounter for screening for malignant neoplasm of colon (Z12.11) Active confirmed Problem [id number] History of adenomatous polyp of colon (Z86.010) Active confirmed Problem [id number] Preprocedural examination (Z01.818) Active confirmed Plan Of Treatment Future Test Test Name Order Date COLONOSCOPY 06/13/2017 Insurance Providers Payer Name Payer Address Payer Phone Subscriber Number Group Number Insured Name Patient Relationship to Insured Coverage Start Date Coverage End Date [facility] [address] [place], [place] [id number] LISA ROBERTSON Self - patient is the insured Medical (General) History Medical History History ICD Code Denies [place],DM,CVA,Lung disease,renal dise ase Hypertension Hyperlipidemia Sees Dr. Tian --vascular surgeon--re: claudication--on Cilostazol Colonoscopies in 2003 and 11 with small tubular adenomas removed, diverticulosis, and internal hemorrhoids Surgical History Surgery Date(Month/Year) Right Shoulder dislocation
[2024-11-10 08:10] LABS: Prothrombin Time Whole Bld POC 29.7 sec (11.1-13.5); ~PT, ~INR - Anti Coag Clinic 2.5 (0.9-1.1)
--- NOTE | 2024-11-10 08:15 | MHC.OFFVISCO ---
Intake Intake Visit Reasons: Anticoagulation Allergies No Known Allergies (No Known Allergies*) Allergy (Verified 11/10/24 08:04) Medication List - Last Reconciled 11/10/24 by Britany Teran RN atorvastatin 20 mg PO DAILY cilostazol 100 mg PO DAILY fluticasone propionate 50 mcg/actuation 1 spray intranasal BID PRN furosemide 20 mg PO DAILY losartan 25 mg PO DAILY metoprolol succinate ER (Toprol XL) 50 mg PO BID nifedipine ER 60 mg PO DAILY umeclidinium 62.5 mcg/actuation (Incruse Ellipta) 1 inh inhalation DAILY warfarin 5 mg See Protocol PO DAILY Nursing Note INR: 2.5 in therapeutic range of 2-3 Medications and supplements reviewed No changes in health, diet, medications, or supplements, Denies any signs and symptoms of bleeding or bruising or clotting. Bleeding, bruising, clotting discussed Nutritional guidance given Dose: 2.5mg X 4 days and 5mg X 3 days F/U INR: 4 weeks Patient verbalizes understanding of instructions given Anti-Coag Initial Assessment Social Hx Patient Tobacco Use Status: Current someday Tobacco user Tobacco use type: Cigarette alcohol intake: former Alcohol intake frequency: former alcohol drinker Cardiovascular Hx: HTN, [place], Arrhythmias and Other Lung Disease HX: COPD and Emphysema Blood Disorder Hx: Hyperlipidemia Cancer HX: No Psych. 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
== END 2024-11-10 08:18 | disposition home or self-care (01) ==
LOC: HO.ACS 08:00
PROVIDERS: PCP Internal Medicine; Visit Provider Internal Medicine Medical Oncology
DX: Z79.01 Long term (current) use of anticoagulants (principal)

== ENCOUNTER → 2024-11-10 08:00 | Outpatient (BNVA) | payer MEDICARE, SELFPAY | PROVIDERS: PCP Internal Medicine; Visit Provider Internal Medicine Medical Oncology | DX: Z79.01 Long term (current) use of anticoagulants (principal) | CPT/HCPCS: 85610; 99211 ==

== ENCOUNTER 2024-12-08 07:55 | Outpatient (AMB) | payer MEDICARE, SELFPAY ==
--- OUTSIDE RECORDS SUMMARY | 2024-12-08 07:57 | XMS_ITS | Patient Health Record ---
Author Organization [facility] Address [address] [place] [phone] Care Team Providers Care Benefits Representative Name Role Phone Shaka Hare MD Primary Care Provider Eder Reyna Unavailable [phone] Reason For Referral No Information Medications Medication [...] Problem Status W/U Status Risk Notes Problem [id number] Encounter for screening for malignant neoplasm of colon (Z12.11) Active confirmed Problem [id number] History of adenomatous polyp of colon (Z86.010) Active confirmed Problem 208879975 Preprocedural examination (Z01.818) Active confirmed Plan Of Treatment Future Test Test Name Order Date COLONOSCOPY 06/13/2017 Insurance Providers Payer Name Payer Address Payer Phone Subscriber Number Group Number Insured Name Patient Relationship to Insured Coverage Start Date Coverage End Date [facility] [address] [place], [place] [id number] [phone] [id number] LISA ROBERTSON Self - patient is the insured Medical (General) History Medical History History ICD Code Denies [place],DM,CVA,Lung disease,renal dise ase Hypertension Hyperlipidemia Sees Dr. Tian --vascular surgeon--re: claudication--on Cilostazol Colonoscopies in 2003 and 11 with small tubular adenomas removed, diverticulosis, and internal hemorrhoids Surgical History Surgery Date(Month/Year) Right Shoulder dislocation
[2024-12-08 08:03] LABS: Prothrombin Time Whole Bld POC 34.0 sec (11.1-13.5); ~PT, ~INR - Anti Coag Clinic 2.8 (0.9-1.1)
--- NOTE | 2024-12-08 08:08 | MHC.OFFVISCO ---
Intake Intake Visit Reasons: Anticoagulation Allergies No Known Allergies (No Known Allergies*) Allergy (Verified 12/08/24 07:58) Medication List - Last Reconciled 12/08/24 by Adrinae Schmidt RN atorvastatin 20 mg PO DAILY cilostazol 100 mg PO DAILY fluticasone propionate 50 mcg/actuation 1 spray intranasal BID PRN furosemide 20 mg PO DAILY losartan 25 mg PO DAILY metoprolol succinate ER (Toprol XL) 50 mg PO BID nifedipine ER 60 mg PO DAILY umeclidinium 62.5 mcg/actuation (Incruse Ellipta) 1 inh inhalation DAILY warfarin 5 mg See Protocol PO DAILY Nursing Note INR: 2.8 in therapeutic range- s/p vacation Medications and supplements reviewed Decreased smoking 2-3 / day as he decreases or stops smoking may need to adjust warfarin and or diet. Denies any signs and symptoms of bleeding or bruising or clotting. Bleeding, bruising, clotting discussed Nutritional guidance given- KEEP UP WEEKLY GREENS Dose: 5MG X 3 DAYS/ 2.5MG X 4 DAYS F/U INR: 1 MONTH Patient verbalizes understanding of instructions given Anti-Coag Initial Assessment Social Hx Patient Tobacco Use Status: Current someday Tobacco user Tobacco use type: Cigarette alcohol intake: former Alcohol intake frequency: former alcohol drinker Cardiovascular Hx: HTN, [place], Arrhythmias and Other Lung Disease HX: COPD and Emphysema Blood Disorder Hx: Hyperlipidemia Cancer HX: No Psych. Illness/Depression: No Coding Level of Care Code Est Patient Level 1 Diagnoses Current use of anticoagulant therapy Z79.01 Assessment & Plan Assessment & Plan (1) Current use of anticoagulant therapy: Code(s): Z79.01 - long-term (current) use of anticoagulants Category: Medical
== END 2024-12-08 08:11 | disposition home or self-care (01) ==
LOC: HO.ACS 07:55
PROVIDERS: PCP Internal Medicine; Visit Provider Internal Medicine Medical Oncology
DX: Z79.01 Long term (current) use of anticoagulants (principal)

== ENCOUNTER → 2024-12-08 07:55 | Outpatient (BNVA) | payer MEDICARE, SELFPAY | PROVIDERS: PCP Internal Medicine; Visit Provider Internal Medicine Medical Oncology | DX: I48.0 Paroxysmal atrial fibrillation (principal); Z79.01 Long term (current) use of anticoagulants; Z51.81 Encounter for therapeutic drug level monitoring | CPT/HCPCS: 85610; 99211 ==

== ENCOUNTER → 2024-12-22 07:44 | Outpatient (REF) | payer MEDICARE, SELFPAY ==
--- NOTE | ~2024-12-22 | NM_ITS ---
Lexiscan Myocardial perfusion study Indication: Atrial fibrillation to evaluate for myocardial ischemia Technique: The patient was brought in for a Lexiscan perfusion study on 12/22/2024 and was injected 0.4 mg of Lexiscan intravenously. Within a minute of this injection 25 mCi of sestamibi was given intravenously. Images were obtained using the SPECT gamma camera interlaced with the gating device. Images were obtained in supine position. Resting perfusion study was performed on 12/23/2024. Patient was administered 25 mCi of sestamibi intravenously at rest. Images were then obtained in supine position. Images obtained without without CT attenuation. Total DLP 96 mGy-cm. Images were processed with the software and compared side to side in short axis, horizontal long axis and vertical long axis views. Findings: The stress perfusion study showed nonattenuated images moderately severely reduced uptake in the distal lateral, apical and inferoapical wall of the LV myocardium. Attenuated corrected images show normal uptake of radiotracer in all segments of the LV myocardium. This is most likely due to attenuation artifact from the arms down position. The gated study was not performed due to atrial fibrillation. LV cavity is normal in size. Resting study was suboptimal due to intense subdiaphragmatic uptake interfering with distal inferior and inferolateral wall of the LV myocardium. Resting images Shows normal uptake of radiotracer in all segments are nonattenuated images. Attenuated corrected images show diffusely reduced uptake in the apex. Gating at rest was not performed. The findings are consistent with [likely normal perfusion on attenuation corrected. NM/NM katelyn perf SPECT rest & str Impression: 1. Myocardial perfusion imaging study shows likely normal myocardial perfusion 2. Gated LVEF is not assessed 3. Transient ischemic dilatation not present Nondiagnostic changes on EKG. Electronically signed by: Jonas Freitas MD 12/23/2024 01:10 PM EDT
--- NOTE | 2024-12-22 07:47 | CA_ITS ---
Acquisition Time: 2024-12-22 08:04:59 Total Exercise Time: 00:02:00 Test Indications: AFIB, SOB Medications: SEE H&P Protocol: LEXISCAN Max HR: 133 BPM 93% of Pred: 142 BPM Max BP: 118/78 mmHG Max Work Load: 1.0 METS Pharmacological stress test with Leixscan while pt swings his legs in chair, with reports of 3/10 chest discomfort, SOB and dizziness, with isolated PVCs, with normotensive response to injection. Nondiagnostic EKG for ischemia. In recovery, pt treated with IVP Aminophylline 75 mg to reverse Lexiscan after which pt is feeling back to baseline. Nuclear images pending. Test reviewed with Dr. Nice. Referred By: Jonas Freitas Electronically Signed By: Baltazar Mcguire
--- OUTSIDE RECORDS SUMMARY | 2024-12-22 07:47 | XMS_ITS | Patient Health Record ---
Author Organization [facility] Address [address] [place] [phone] Care Team Providers Care Cold Working Inspector Name Role Phone Shaka Hare MD Primary Care Provider Eder Reyna Unavailable [phone] Reason For Referral No Information Medications Medication [...] Problem Status W/U Status Risk Notes Problem [id number] Encounter for screening for malignant neoplasm of colon (Z12.11) Active confirmed Problem 747652322 History of adenomatous polyp of colon (Z86.010) Active confirmed Problem [id number] Preprocedural examination (Z01.818) Active confirmed Plan Of Treatment Future Test Test Name Order Date COLONOSCOPY 06/13/2017 Insurance Providers Payer Name Payer Address Payer Phone Subscriber Number Group Number Insured Name Patient Relationship to Insured Coverage Start Date Coverage End Date [facility] [address] [place], [place] [id number] [phone] [id number] LISA ROBERTSON Self - patient is the insured Medical (General) History Medical History History ICD Code Denies [place],DM,CVA,Lung disease,renal dise ase Hypertension Hyperlipidemia Sees Dr. Tian --vascular surgeon--re: claudication--on Cilostazol Colonoscopies in 2003 and 11 with small tubular adenomas removed, diverticulosis, and internal hemorrhoids Surgical History Surgery Date(Month/Year) Right Shoulder dislocation
== END ==
LOC: HO.CARD 07:44
PROVIDERS: PCP Internal Medicine; Visit Provider Internal Medicine Cardiovascular Disease
DX: I48.19 Other persistent atrial fibrillation (principal)
CPT/HCPCS: 78452; 93017; A9500; J0280; J2785

== ENCOUNTER → 2024-12-22 07:47 | Outpatient (BNV) | payer MEDICARE, SELFPAY | PROVIDERS: PCP Internal Medicine | DX: I49.3 Ventricular premature depolarization (principal); R06.02 Shortness of breath; R42 Dizziness and giddiness | CPT/HCPCS: 78452; 93016; 93018 ==

== ENCOUNTER 2024-12-31 13:47 | Outpatient (AMB) | payer MEDICARE, SELFPAY ==
--- NOTE | 2024-12-31 13:55 | MHC.OFFVISCO ---
Intake Intake Visit Reasons: Anticoagulation Allergies No Known Allergies (No Known Allergies*) Allergy (Verified 12/31/24 13:51) Medication List - Last Reconciled 12/31/24 by Anahy Deng RN atorvastatin 20 mg PO DAILY cilostazol 100 mg PO DAILY fluticasone propionate 50 mcg/actuation 1 spray intranasal BID PRN furosemide 20 mg PO DAILY losartan 25 mg PO DAILY metoprolol succinate ER 50 mg PO BID nifedipine ER 60 mg PO DAILY umeclidinium 62.5 mcg/actuation (Incruse Ellipta) 1 inh inhalation DAILY warfarin 5 mg See Protocol PO DAILY Nursing Note INR: 2.8-in therapeutic range of 2-3 Medications and supplements reviewed- no changes No changes in health, diet, medications, or supplements, Denies any signs and symptoms of bleeding or bruising or clotting. Bleeding, bruising, clotting discussed Nutritional guidance given Dose: 5mg x 3, 2.5mg x 4 F/U INR: 4 weeks Patient verbalizes understanding of instructions given Anti-Coag Initial Assessment Social Hx Patient Tobacco Use Status: Current someday Tobacco user Tobacco use type: Cigarette alcohol intake: former Alcohol intake frequency: former alcohol drinker Cardiovascular Hx: HTN, [place], Arrhythmias and Other Lung Disease HX: COPD and Emphysema Blood Disorder Hx: Hyperlipidemia Cancer HX: No Psych. 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
[2024-12-31 13:56] LABS: Prothrombin Time Whole Bld POC 33.2 sec (11.1-13.5); ~PT, ~INR - Anti Coag Clinic 2.8 (0.9-1.1)
--- OUTSIDE RECORDS SUMMARY | 2024-12-31 14:43 | XMS_ITS | Patient Health Record ---
Author Organization [facility] Address [address] [place] [address] Care Team Providers Care Supply Chain Engineer Name Role Phone Shaka Hare MD Primary Care Provider Eder Reyna Unavailable [phone] Reason For Referral No Information Medications Medication [...] Problem Status W/U Status Risk Notes Problem [id number] Encounter for screening for malignant neoplasm of colon (Z12.11) Active confirmed Problem 157133079 History of adenomatous polyp of colon (Z86.010) Active confirmed Problem [id number] Preprocedural examination (Z01.818) Active confirmed Plan Of Treatment Future Test Test Name Order Date COLONOSCOPY 06/13/2017 Insurance Providers Payer Name Payer Address Payer Phone Subscriber Number Group Number Insured Name Patient Relationship to Insured Coverage Start Date Coverage End Date [facility] [address] [place], [place] [id number] [phone] [id number] LISA ROBERTSON Self - patient is the insured Medical (General) History Medical History History ICD Code Denies [place],DM,CVA,Lung disease,renal dise ase Hypertension Hyperlipidemia Sees Dr. Tian --vascular surgeon--re: claudication--on Cilostazol Colonoscopies in 2003 and 11 with small tubular adenomas removed, diverticulosis, and internal hemorrhoids Surgical History Surgery Date(Month/Year) Right Shoulder dislocation
== END 2024-12-31 14:01 | disposition home or self-care (01) ==
LOC: HO.ACS 13:47
PROVIDERS: PCP Internal Medicine; Visit Provider Internal Medicine Medical Oncology
DX: Z79.01 Long term (current) use of anticoagulants (principal)

== ENCOUNTER → 2024-12-31 13:47 | Outpatient (BNVA) | payer MEDICARE, SELFPAY | PROVIDERS: PCP Internal Medicine; Visit Provider Internal Medicine Medical Oncology | DX: Z79.01 Long term (current) use of anticoagulants (principal) | CPT/HCPCS: 85610; 99211 ==

== ENCOUNTER 2025-01-13 15:08 | Outpatient (AMB) | payer MEDICARE, SELFPAY ==
--- NOTE | 2025-01-13 15:17 | A.OFFVIS_ITS ---
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 Continues to have exertional shortness of breath. No orthopnea, PND, leg edema. Also complains of lightheadedness, mostly suggestion of orthostatic lightheadedness. He says when he gets up suddenly aft er sitting position for long period of time and walks he gets lightheaded. He is measuring with oxygen level with walking in his not had any significant hypoxemia. Denies any palpitations. No exertional chest pain. Underwent a myocardial perfusion imaging recently which showed no significant ischemia. He says he does drink adequate amount of fluid every day. [facility] Medical History (Updated 01/13/25 @ 15:49 by Jonas Freitas MD) Paroxysmal atrial fibrillation Diverticulosis Ischemic cardiomyopathy Carotid disease, bilateral PVD (peripheral vascular disease) PVCs (premature ventricular contractions) Cardiac arrhythmia, unspecified Neoplasm COPD (chronic obstructive pulmonary disease) Hypercholesteremia HTN (hypertension) AAA (abdominal aortic aneurysm) [place] (hard of hearing) Myocardial infarct Surgical History Hx of vasectomy H/O colonoscopy Hx of endarterectomy History of shoulder surgery Family History Mother Myocardial infarct Sister Cancer Father No problems noted. 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 Current occupational exposures/hazards: No Review of Systems Const Denies chills, Denies fatigue, Denies fever(s), Denies frequent falls, Denies weakness, Denies weight gain and Denies weight loss ENT Denies dizziness Card Denies chest pain, Denies leg edema, Reports lightheadedness, Denies palpitations, Denies dyspnea, Denies dyspnea on exertion, Denies orthopnea and Denies other (loss of consciousness) Resp Denies cough, Denies dyspnea and Denies dyspnea on exertion GI Denies hematochezia and Denies change in stool character Musc Denies abnormal gait, Denies muscle weakness, Denies numbness, Denies radiating pain into limb and Denies tingling Neuro Denies abnormal gait, Denies dizziness, Denies frequent falls, Denies numbness, Denies tingling and Denies weakness Endo Denies fatigue and Denies palpitations Physical Exam Vital Signs: Last Vital Signs Pulse 62 01/13/25 15:18 BP 120/74 01/13/25 15:18 BMI result Body Mass Index 23.4 Const General: cooperative, comfortable, no acute distress, alert and awake Nutritional Appearance: thin Orientation/consciousness: patient oriented x3 Limitations: no limitations Neck Neck: Yes trachea midline, Yes supple and Yes no JVD Carotids: bruit bilateral Resp Effort & Inspection: normal respiratory effort Auscultation: no rales, no wheezes and diminished lung sounds Cardio Jugular venous distension: no JVD Palpation: normal PMI Rhythm: abnormal rhythm irregularly irregular Heart sounds: S1 normal heart sound present, S2 normal heart sound present and Murmur heart sound present systolic (Ejection systolic) Peripheral pulses: other (Reduced bilateral distal) GI Auscultation: normal bowel sounds Skin General skin exam: no rashes or lesions noted Neuro General: patient oriented x3 and no focal motor deficits Extrem General: Yes no clubbing, cyanosis or edema Assessment & Plan Assessment & Plan (1) Persistent atrial fibrillation: Code(s): I48.19 - Other persistent atrial fibrillation Category: Medical Plan: Persistent atrial fibrillation without any significant evidence of myocardial ischemia by myocardial perfusion imaging with preserved LV ejection fraction. No signs or symptoms of heart failure. He does have symptoms of lightheadedness which appear to be orthostatic in nature. He said he drinks enough amount of water. We discussed about holding losartan for now and see how his symptoms im prove. Advised to monitor blood pressure at home regularly. Will also obtain a Holter monitor to assess for adequate rate control was atrial fibrillation which could be other potential causes for his lightheadedness. Has failed rhythm control approach unfortunately. Continue full oral anticoagulation, currently on warfarin therapy being [facility]. Maintain target INR between 2 and 3. (2) HTN (hypertension): Code(s): I10 - Essential (primary) hypertension Category: Medical Plan: Hypertension which is currently well optimized. Continue current therapy. Hold losartan therapy as he has orthostatic symptoms. Advised to monitor blood pressure at home. Low-salt diet was discussed. Continue nifedipine and metoprolol therapy. If blood pressure remains low will taper nifedipine therapy. Will follow with him in 3 months time, sooner PRN. Thank you for allowing me to partake in his care Orders: Orders ECG 3 day holter monitor Today I48.19 - Other persistent atrial fibrillation Medications: On Hold losartan Hold Comment: Doctor's Order 25 mg PO DAILY 30 tabs 5RF Coding Level of Care Code Est Pt Level 4 (86279) Complex EM visit Add On G2211 Diagnoses Persistent atrial fibrillation I48.19 HTN (hypertension) I10
[2025-01-13 15:18] VITALS: BP 120/74; PULSE 62; BMI 23.4
== END 2025-01-13 15:45 | disposition home or self-care (01) ==
LOC: HO.HCS 15:09
PROVIDERS: PCP Internal Medicine; Visit Provider Internal Medicine Cardiovascular Disease
DX: I48.19 Other persistent atrial fibrillation (principal); I10 Essential (primary) hypertension
CPT/HCPCS: 99214; G2211

== ENCOUNTER → 2025-01-13 15:08 | Outpatient (BNVA) | payer MEDICARE, SELFPAY | PROVIDERS: PCP Internal Medicine; Visit Provider Internal Medicine Cardiovascular Disease | DX: I10 Essential (primary) hypertension (principal); I48.19 Other persistent atrial fibrillation | CPT/HCPCS: 99212 ==

== ENCOUNTER 2025-01-28 07:59 | Outpatient (AMB) | payer MEDICARE, SELFPAY ==
--- OUTSIDE RECORDS SUMMARY | 2025-01-28 08:05 | XMS_ITS | Patient Health Record ---
Author Organization [facility] Address [address] [place] [id number] Care Team Providers Care Director Of Donor Relations Name Role Phone Shaka Hare MD Primary Care Provider Eder Reyna Unavailable [phone] Reason For Referral No Information Medications Medication [...] Problem Status W/U Status Risk Notes Problem [id number] Encounter for screening for malignant neoplasm of colon (Z12.11) Active confirmed Problem 842468330 History of adenomatous polyp of colon (Z86.010) Active confirmed Problem 924386196 Preprocedural examination (Z01.818) Active confirmed Plan Of Treatment Future Test Test Name Order Date COLONOSCOPY 06/13/2017 Insurance Providers Payer Name Payer Address Payer Phone Subscriber Number Group Number Insured Name Patient Relationship to Insured Coverage Start Date Coverage End Date [facility] [address] [place], [place] [id number] [phone] [id number] LISA ROBERTSON Self - patient is the insured Medical (General) History Medical History History ICD Code Denies [place],DM,CVA,Lung disease,renal dise ase Hypertension Hyperlipidemia Sees Dr. Tian --vascular surgeon--re: claudication--on Cilostazol Colonoscopies in 2003 and 11 with small tubular adenomas removed, diverticulosis, and internal hemorrhoids Surgical History Surgery Date(Month/Year) Right Shoulder dislocation
[2025-01-28 08:10] LABS: Prothrombin Time Whole Bld POC 30.8 sec (11.1-13.5); ~PT, ~INR - Anti Coag Clinic 2.6 (0.9-1.1)
--- NOTE | 2025-01-28 08:10 | MHC.OFFVISCO ---
Intake Intake Visit Reasons: Anticoagulation Allergies No Known Allergies (No Known Allergies*) Allergy (Verified 01/28/25 08:02) Medication List - Last Reconciled 01/28/25 by Anahy Deng RN atorvastatin 20 mg PO DAILY cilostazol 100 mg PO DAILY fluticasone propionate 50 mcg/actuation 1 spray intranasal BID PRN furosemide 20 mg PO DAILY losartan 25 mg PO DAILY Held on 01/13/25. Instructions: Doctor's Order metoprolol succinate ER 50 mg PO BID nifedipine ER 60 mg PO DAILY umeclidinium 62.5 mcg/actuation (Incruse Ellipta) 1 inh inhalation DAILY warfarin 5 mg See Protocol PO DAILY Nursing Note INR: 2.6- in therapeutic range 2-3 Medications and supplements reviewed No changes in health, diet, medications, or supplements, Denies any signs and symptoms of bleeding or bruising or clotting. Bleeding, bruising, clotting discussed Nutritional guidance given Dose: 5mg x 3, 2.5mg x 4 F/U INR: 4 weeks Patient verbalizes understanding of instructions given Anti-Coag Initial Assessment Social Hx Patient Tobacco Use Status: Current someday Tobacco user Tobacco use type: Cigarette alcohol intake: former Alcohol intake frequency: former alcohol drinker Cardiovascular Hx: HTN, [place], Arrhythmias and Other Lung Disease HX: COPD and Emphysema Blood Disorder Hx: Hyperlipidemia Cancer HX: No Psych. 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
== END 2025-01-28 08:46 | disposition home or self-care (01) ==
LOC: HO.ACS 07:59
PROVIDERS: PCP Internal Medicine; Visit Provider Internal Medicine Medical Oncology
DX: Z79.01 Long term (current) use of anticoagulants (principal)

== ENCOUNTER → 2025-01-28 07:59 | Outpatient (BNVA) | payer MEDICARE, SELFPAY | PROVIDERS: PCP Internal Medicine; Visit Provider Internal Medicine Medical Oncology | DX: I48.0 Paroxysmal atrial fibrillation (principal); Z79.01 Long term (current) use of anticoagulants; Z51.81 Encounter for therapeutic drug level monitoring | CPT/HCPCS: 85610; 99211 ==

== ENCOUNTER → 2025-02-02 09:05 | Outpatient (REF) | payer MEDICARE, SELFPAY ==
--- NOTE | 2025-02-02 09:07 | HM_ITS ---
* Total monitoring time 3 days. * Underlying rhythm is atrial fibrillation. * Average ventricular rate 112/Min. About 50% of the time, rate > 100/Min. * Rare ventricular ectopy. One triplet. * No significant pauses or high-grade AV blocks. * No patient markers or diary events. MTDD
--- OUTSIDE RECORDS SUMMARY | 2025-02-02 10:39 | XMS_ITS | Patient Health Record ---
Author Organization [facility] Address [address] [place] [address] Care Team Providers Care Electrical Controls Designer Name Role Phone Shaka Hare MD Primary Care Provider Eder Reyna Unavailable [phone] Reason For Referral No Information Medications Medication [...] Problem Status W/U Status Risk Notes Problem [id number] Encounter for screening for malignant neoplasm of colon (Z12.11) Active confirmed Problem 821838160 History of adenomatous polyp of colon (Z86.010) Active confirmed Problem 943741292 Preprocedural examination (Z01.818) Active confirmed Plan Of Treatment Future Test Test Name Order Date COLONOSCOPY 06/13/2017 Insurance Providers Payer Name Payer Address Payer Phone Subscriber Number Group Number Insured Name Patient Relationship to Insured Coverage Start Date Coverage End Date [facility] [address] [place], [place] [id number] [phone] [id number] LISA ROBERTSON Self - patient is the insured Medical (General) History Medical History History ICD Code Denies [place],DM,CVA,Lung disease,renal dise ase Hypertension Hyperlipidemia Sees Dr. Tian --vascular surgeon--re: claudication--on Cilostazol Colonoscopies in 2003 and 11 with small tubular adenomas removed, diverticulosis, and internal hemorrhoids Surgical History Surgery Date(Month/Year) Right Shoulder dislocation
== END ==
LOC: HO.CARD 09:05
PROVIDERS: PCP Internal Medicine; Visit Provider Internal Medicine Cardiovascular Disease
DX: I48.19 Other persistent atrial fibrillation (principal)
CPT/HCPCS: 93242

== ENCOUNTER → 2025-02-02 09:07 | Outpatient (BNV) | payer MEDICARE, SELFPAY | PROVIDERS: PCP Internal Medicine; Visit Provider Internal Medicine | DX: I49.3 Ventricular premature depolarization (principal); I48.91 Unspecified atrial fibrillation | CPT/HCPCS: 93244 ==

== ENCOUNTER 2025-02-24 15:01 | Outpatient (REF) | payer MEDICARE, SELFPAY ==
[2025-02-24 16:54] LABS: Digoxin 0.6 ng/mL (0.8-2.0)
== END 2025-02-24 15:02 | disposition home or self-care (01) ==
LOC: HO.LAB 15:01
PROVIDERS: PCP Internal Medicine; Visit Provider Internal Medicine Cardiovascular Disease
DX: I48.19 Other persistent atrial fibrillation (principal); I49.3 Ventricular premature depolarization
CPT/HCPCS: 36415; 80162

== ENCOUNTER 2025-02-25 14:16 | Outpatient (AMB) | payer MEDICARE, SELFPAY ==
--- NOTE | 2025-02-25 14:23 | MHC.OFFVISCO ---
Intake Intake Visit Reasons: Anticoagulation Allergies No Known Allergies (No Known Allergies*) Allergy (Verified 02/25/25 14:17) Medication List - Last Reconciled 02/25/25 by Anahy Deng RN atorvastatin 20 mg PO DAILY cilostazol 100 mg PO DAILY digoxin 125 mcg PO DAILY fluticasone propionate 50 mcg/actuation 1 spray intranasal BID PRN furosemide 20 mg PO DAILY losartan 25 mg PO DAILY Held on 01/13/25. Instructions: Doctor's Order metoprolol succinate ER 50 mg PO BID nifedipine ER 60 mg PO DAILY umeclidinium 62.5 mcg/actuation (Incruse Ellipta) 1 inh inhalation DAILY warfarin 5 mg See Protocol PO DAILY Nursing Note INR 3.3-?? out of therapeutic range 2-3 Medications and supplements reviewed Patient status: no c.o Medications or supplements: digoxin- no interation with warfarin per micromedex Diet: good, ensure one can per week Denies any signs and symptoms of bleeding or clotting or unusual bruising Bleeding, bruising, clotting discussed Nutritional guidance given: eat a green today Dose: already took warfarin today, take 2.5mg tomm then cont reg dosing 5mg x 3, 2.5mg x 4 F/U INR Date : 2 weeks Patient verbalizing understanding of instructions given. Anti-Coag Initial Assessment Social Hx Patient Tobacco Use Status: Current someday Tobacco user Tobacco use type: Cigarette alcohol intake: former Alcohol intake frequency: former alcohol drinker Cardiovascular Hx: HTN, [place], Arrhythmias and Other Lung Disease HX: COPD and Emphysema Blood Disorder Hx: Hyperlipidemia Cancer HX: No Psych. Illness/Depression: No Coding Level of Care Code Est Patient Level 1 Diagnoses Current use of anticoagulant therapy Z79.01 Results AMB INR Fingerstick AMB INR Fingerstick 3.3 Last Edit by Anahy Deng RN on 02/25/25 14:28 interface delay Assessment & Plan Assessment & Plan (1) Current use of anticoagulant therapy: Code(s): Z79.01 - retirement (current) use of anticoagulants Category: Medical
--- OUTSIDE RECORDS SUMMARY | 2025-02-25 18:01 | XMS_ITS | Patient Health Record ---
Author Organization [facility] Address [address] [place] [address] Care Team Providers Care Dinkey Engine Operator Name Role Phone Shaka Hare MD Primary Care Provider Eder Reyna Unavailable [phone] Reason For Referral No Information Medications Medication [...] Problem Status W/U Status Risk Notes Problem Screening for malignant neoplasm of colon (002621126) Encounter for screening for malignant neoplasm of colon (Z12.11) Active confirmed Problem History of adenomatous polyp of colon (282341781) History of adenomatous polyp of colon (Z86.010) Active confirmed Problem Preprocedural examination (248446982730694) Preprocedural examination (Z01.818) Active confirmed Plan Of Treatment Future Test Test Name Order Date COLONOSCOPY 06/13/2017 Insurance Providers Payer Name Payer Address Payer Phone Subscriber Number Group Number Insured Name Patient Relationship to Insured Coverage Start Date Coverage End Date [facility] [address] [place], [place] [id number] LISA ROBERTSON Self - patient is the insured Medical (General) History Medical History History ICD Code Denies [place],DM,CVA,Lung disease,renal dise ase Hypertension Hyperlipidemia Sees Dr. Tian --vascular surgeon--re: claudication--on Cilostazol Colonoscopies in 2003 and 11 with small tubular adenomas removed, diverticulosis, and internal hemorrhoids Surgical History Surgery Date(Month/Year) Right Shoulder dislocation
[2025-02-26 08:19] LABS: Prothrombin Time Whole Bld POC 39.7 sec (11.1-13.5); ~PT, ~INR - Anti Coag Clinic 3.3 (0.9-1.1)
== END 2025-02-25 14:33 | disposition home or self-care (01) ==
LOC: HO.ACS 14:16
PROVIDERS: PCP Internal Medicine; Visit Provider Internal Medicine Medical Oncology
DX: Z79.01 Long term (current) use of anticoagulants (principal)

== ENCOUNTER → 2025-02-25 14:16 | Outpatient (BNVA) | payer MEDICARE, SELFPAY | PROVIDERS: PCP Internal Medicine; Visit Provider Internal Medicine Medical Oncology | DX: I48.0 Paroxysmal atrial fibrillation (principal); Z79.01 Long term (current) use of anticoagulants; Z51.81 Encounter for therapeutic drug level monitoring | CPT/HCPCS: 85610; 99211 ==

== ENCOUNTER 2025-03-11 08:06 | Outpatient (AMB) | payer MEDICARE, SELFPAY ==
--- OUTSIDE RECORDS SUMMARY | 2025-03-11 08:19 | XMS_ITS | Patient Health Record ---
Author Organization [facility] Address [address] [place] [address] Care Team Providers Care Brick Baker Name Role Phone Shaka Hare MD Primary Care Provider Eder Reyna Unavailable [phone] Reason For Referral No Information Medications Medication [...] Problem Screening for malignant neoplasm of colon (656164467) Encounter for screening for malignant neoplasm of colon (Z12.11) Active confirmed Problem History of adenomatous polyp of colon (573552103) History of adenomatous polyp of colon (Z86.010) Active confirmed Problem Preprocedural examination (657496475050427) Preprocedural examination (Z01.818) Active confirmed Plan Of Treatment Future Test Test Name Order Date COLONOSCOPY 06/13/2017 Insurance Providers Payer Name Payer Address Payer Phone Subscriber Number Group Number Insured Name Patient Relationship to Insured Coverage Start Date Coverage End Date [facility] [address] [place], [place] [id number] LISA ROBERTSON Self - patient is the insured Medical (General) History Medical History History ICD Code Denies [place],DM,CVA,Lung disease,renal dise ase Hypertension Hyperlipidemia Sees Dr. Tian --vascular surgeon--re: claudication--on Cilostazol Colonoscopies in 2003 and 11 with small tubular adenomas removed, diverticulosis, and internal hemorrhoids Surgical History Surgery Date(Month/Year) Right Shoulder dislocation
--- NOTE | 2025-03-11 08:29 | MHC.OFFVISCO ---
Intake Intake Visit Reasons: Anticoagulation Allergies No Known Allergies (No Known Allergies*) Allergy (Verified 03/11/25 08:23) Medication List - Last Reconciled 03/11/25 by Anahy Deng RN atorvastatin 20 mg PO DAILY cilostazol 100 mg PO DAILY digoxin 125 mcg PO DAILY fluticasone propionate 50 mcg/actuation 1 spray intranasal BID PRN furosemide 20 mg PO DAILY losartan 25 mg PO DAILY Held on 01/13/25. Instructions: Doctor's Order metoprolol succinate ER 50 mg PO BID nifedipine ER 60 mg PO DAILY umeclidinium 62.5 mcg/actuation (Incruse Ellipta) 1 inh inhalation DAILY warfarin 5 mg See Protocol PO DAILY Nursing Note INR 4.1-?? out of therapeutic range 2-3 Medications and supplements reviewed Patient status: unsure why inr is elev, denies tylenol, med change, etoh Medications or supplements: flu, rsv, covid vaccines yesterday Diet: appetite fair, ensure one can a week Denies any signs and symptoms of bleeding or clotting or unusual bruising Bleeding, bruising, clotting discussed Nutritional guidance given: eat greens to lower Dose: hold warfarin, then cont reg dosing F/U INR Date : pt req 2 weeks Patient verbalizing understanding of instructions given. Anti-Coag Initial Assessment Social Hx Patient Tobacco Use Status: Current someday Tobacco user Tobacco use type: Cigarette alcohol intake: former Alcohol intake frequency: former alcohol drinker Cardiovascular Hx: HTN, [place], Arrhythmias and Other Lung Disease HX: COPD and Emphysema Blood Disorder Hx: Hyperlipidemia Cancer HX: No Psych. Illness/Depression: No Coding Level of Care Code Est Patient Level 1 Diagnoses Current use of anticoagulant therapy Z79.01 Results AMB INR Fingerstick AMB INR Fingerstick 4.1 Last Edit by Anahy Deng RN on 03/11/25 08:33 interface delay Assessment & Plan Assessment & Plan (1) Current use of anticoagulant therapy: Code(s): Z79.01 - [facility] (current) use of anticoagulants Category: Medical
[2025-03-11 10:14] LABS: Prothrombin Time Whole Bld POC 49.0 sec (11.1-13.5); ~PT, ~INR - Anti Coag Clinic 4.1 (0.9-1.1)
== END 2025-03-11 08:38 | disposition home or self-care (01) ==
LOC: HO.ACS 08:06
PROVIDERS: PCP Internal Medicine; Visit Provider Internal Medicine Medical Oncology
DX: Z79.01 Long term (current) use of anticoagulants (principal)

== ENCOUNTER → 2025-03-11 08:06 | Outpatient (BNVA) | payer MEDICARE, SELFPAY | PROVIDERS: PCP Internal Medicine; Visit Provider Internal Medicine Medical Oncology | DX: I48.0 Paroxysmal atrial fibrillation (principal); Z79.01 Long term (current) use of anticoagulants; Z51.81 Encounter for therapeutic drug level monitoring | CPT/HCPCS: 85610; 99211 ==

== ENCOUNTER 2025-03-25 08:01 | Outpatient (AMB) | payer MEDICARE, SELFPAY ==
--- OUTSIDE RECORDS SUMMARY | 2025-03-25 08:03 | XMS_ITS | Patient Health Record ---
Author Organization [facility] Address [address] [place] [id number] Care Team Providers Care Art Librarian Name Role Phone Shaka Hare MD Primary Care Provider Eder Reyna Unavailable [phone] Reason For Referral No Information Medications Medication [...] Problem Screening for malignant neoplasm of colon (439565879) Encounter for screening for malignant neoplasm of colon (Z12.11) Active confirmed Problem History of adenomatous polyp of colon (865678646) History of adenomatous polyp of colon (Z86.010) Active confirmed Problem Preprocedural examination (609925023240622) Preprocedural examination (Z01.818) Active confirmed Plan Of Treatment Future Test Test Name Order Date COLONOSCOPY 06/13/2017 Insurance Providers Payer Name Payer Address Payer Phone Subscriber Number Group Number Insured Name Patient Relationship to Insured Coverage Start Date Coverage End Date [facility] [address] [place], [place] [id number] LISA ROBERTSON Self - patient is the insured Medical (General) History Medical History History ICD Code Denies [place],DM,CVA,Lung disease,renal dise ase Hypertension Hyperlipidemia Sees Dr. Tian --vascular surgeon--re: claudication--on Cilostazol Colonoscopies in 2003 and 11 with small tubular adenomas removed, diverticulosis, and internal hemorrhoids Surgical History Surgery Date(Month/Year) Right Shoulder dislocation
[2025-03-25 08:11] LABS: Prothrombin Time Whole Bld POC 39.5 sec (11.1-13.5); ~PT, ~INR - Anti Coag Clinic 3.3 (0.9-1.1)
--- NOTE | 2025-03-25 08:23 | MHC.OFFVISCO ---
Intake Intake Visit Reasons: Anticoagulation Allergies No Known Allergies (No Known Allergies*) Allergy (Verified 03/25/25 08:06) Medication List - Last Reconciled 03/25/25 by Paige Ocasio RN atorvastatin 20 mg PO DAILY cilostazol 100 mg PO DAILY digoxin 125 mcg PO DAILY fluticasone propionate 50 mcg/actuation 1 spray intranasal BID PRN furosemide 20 mg PO DAILY losartan 25 mg PO DAILY Held on 01/13/25. Instructions: Doctor's Order metoprolol succinate ER 50 mg PO BID nifedipine ER 60 mg PO DAILY umeclidinium 62.5 mcg/actuation (Incruse Ellipta) 1 inh inhalation DAILY warfarin 5 mg See Protocol PO DAILY Nursing Note NO CP,SOB,DIET/MED CHANGES,FALLS OR SX OF BLEEDING. PT.STATES THAT HE HAS BEEN HAVING MORE ENSURE AND GREENS TO LOWER INR. WILL HOLD WARFARIN TODAY AND LOWER WEEKLY DOSE AND FOLLOW-UP IN 3 WEEKS AVOID GREENS T6ODAY GOOD UNDERSTANDING OF DOSING INSTR. Anti-Coag Initial Assessment Social Hx Patient Tobacco Use Status: Current someday Tobacco user Tobacco use type: Cigarette alcohol intake: former Alcohol intake frequency: former alcohol drinker Cardiovascular Hx: HTN, [place], Arrhythmias and Other Lung Disease HX: COPD and Emphysema Blood Disorder Hx: Hyperlipidemia Cancer HX: No Psych. Illness/Depression: No Coding Level of Care Code Est Patient Level 1 Diagnoses Current use of anticoagulant therapy Z79.01 Assessment & Plan Assessment & Plan (1) Current use of anticoagulant therapy: Code(s): Z79.01 - [facility] (current) use of anticoagulants Category: Medical
== END 2025-03-25 08:27 | disposition home or self-care (01) ==
LOC: HO.ACS 08:01
PROVIDERS: PCP Internal Medicine; Visit Provider Internal Medicine Medical Oncology
DX: Z79.01 Long term (current) use of anticoagulants (principal)

== ENCOUNTER → 2025-03-25 08:01 | Outpatient (BNVA) | payer MEDICARE, SELFPAY | PROVIDERS: PCP Internal Medicine; Visit Provider Internal Medicine Medical Oncology | DX: I48.0 Paroxysmal atrial fibrillation (principal); Z51.81 Encounter for therapeutic drug level monitoring; Z79.01 Long term (current) use of anticoagulants | CPT/HCPCS: 85610; 99211 ==

== ENCOUNTER → 2025-03-31 10:13 | Outpatient (REF) | payer MEDICARE, SELFPAY ==
--- NOTE | 2025-03-31 10:16 | HM_ITS ---
* Total monitoring time 3 days. * Underlying rhythm is atrial fibrillation with an average ventricular rate of 93/Min. * About 19% of the time, rate > 100/Min. * Ventricular ectopy with a burden of 2%. Rare couplets and triplets. Very brief runs, possibly up to 5 beats but that strip has lot of artifact. * No significant pauses or high-grade AV blocks. * No patient markers or diary events. MTDD
== END ==
LOC: HO.CARD 10:13
PROVIDERS: PCP Internal Medicine; Visit Provider Internal Medicine Cardiovascular Disease
DX: I49.3 Ventricular premature depolarization (principal); I48.19 Other persistent atrial fibrillation
CPT/HCPCS: 93242

== ENCOUNTER → 2025-03-31 10:16 | Outpatient (BNV) | payer MEDICARE, SELFPAY | PROVIDERS: PCP Internal Medicine; Visit Provider Internal Medicine | DX: I48.91 Unspecified atrial fibrillation (principal); I49.3 Ventricular premature depolarization | CPT/HCPCS: 93244 ==

== ENCOUNTER 2025-04-15 13:00 | Outpatient (AMB) | payer MEDICARE, SELFPAY ==
--- NOTE | 2025-04-15 13:09 | MHC.OFFVISCO ---
Intake Intake Visit Reasons: Anticoagulation Allergies No Known Allergies (No Known Allergies*) Allergy (Verified 04/15/25 13:02) Medication List - Last Reconciled 04/15/25 by Anahy Deng RN atorvastatin 20 mg PO DAILY cilostazol 100 mg PO DAILY digoxin 125 mcg PO DAILY fluticasone propionate 50 mcg/actuation 1 spray intranasal BID PRN furosemide 20 mg PO DAILY losartan 25 mg PO DAILY Held on 01/13/25. Instructions: Doctor's Order metoprolol succinate ER 50 mg PO BID nifedipine ER 60 mg PO DAILY umeclidinium 62.5 mcg/actuation (Incruse Ellipta) 1 inh inhalation DAILY warfarin 5 mg See Protocol PO DAILY Nursing Note INR: 2.5- in therapeutic range 2-3 Medications and supplements reviewed no changes No changes in health, diet, medications, or supplements, Denies any signs and symptoms of bleeding or bruising or clotting. Bleeding, bruising, clotting discussed Nutritional guidance given Dose: 5mg x 2, 2.5mg x 5 F/U INR: 3 weeks Patient verbalizes understanding of instructions given Anti-Coag Initial Assessment Social Hx Patient Tobacco Use Status: Current someday Tobacco user Tobacco use type: Cigarette alcohol intake: former Alcohol intake frequency: former alcohol drinker Cardiovascular Hx: HTN, [place], Arrhythmias and Other Lung Disease HX: COPD and Emphysema Blood Disorder Hx: Hyperlipidemia Cancer HX: No Psych. Illness/Depression: No Questionnaires HAS-BLED Does the patient had uncontrolled Hypertension?: No Does the patient have renal disease?: No Does the patient have liver disease?: No Does the patient have a history of stroke?: No Has the patient had major bleeding or predisposition to bleeding?: No Does the patient have labile INRs?: No Is the patient over 65 years of age?: Yes Is the patient on medications that gives them a predisposition to bleeding?: Yes Does the patient use alcohol?: No HAS-BLED Score: 2 CHADSVASC Age: 75 or over Gender: Male Does the patient have a history of CHF?: No Does the patient have a history of Hypertension?: Yes Does the patient have a history of Stroke/TIA/Thromboembolism?: No Does the patient have a history of Vascular Disease (prior [place], PAD or aortic plaque)?: Yes Does the patient have a history of Diabetes?: No CHADS VACS Score: 4 Kimi Prediction Score Rsk VTE Active Cancer: No Previous VTE, excluding superficial vein thrombosis: No Reduced mobility: No Already known Thrombophilic Condition: No With-in last month Trauma and/or Surgery: No Elderly 70 year or older: Yes Heart and/or Respiratory Failure: No Acute Myocardial infarction and/or Ischemic Stroke: No Acute Infection and/or Rheumatologic Disorder: No Obesity (BMI 30 or greater): No Ongoing Hormonal Treatment: No Score: 1 Kimi Score less than 4; Low Risk of VTE Kimi Score 4 or greater; High Risk of VTE Coding Level of Care Code Est Patient Level 1 Diagnoses Current use of anticoagulant therapy Z79.01 Assessment & Plan Assessment & Plan (1) Current use of anticoagulant therapy: 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
[2025-04-15 13:10] LABS: Prothrombin Time Whole Bld POC 30.2 sec (11.1-13.5); ~PT, ~INR - Anti Coag Clinic 2.5 (0.9-1.1)
--- OUTSIDE RECORDS SUMMARY | 2025-04-15 15:30 | XMS_ITS | Patient Health Record ---
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 Name Role Phone Shaka Hare MD Primary Care Provider Eder Reyna Unavailable [phone] Reason For Referral No Information Medications Medication SIG (Take, Route, Frequency, Duration) Notes Start Date End Date Status NIFEdipine 60 MG Tablet Extended Release Orally Active Atorvastatin Calcium 80 MG Tablet 1 tablet Orally Once a day Active Cilostazol 50 MG Tablet 1 tablet 30 talat indra before or 2 hours after breakfast and dinner Orally Twice a day Active hydroCHLOROthiazide 25 MG Tablet 1 tablet in the morning Orally Once a day Active Social History Tobacco Use: Social History Observation Description Date Details (start date - stop date) Current Smoker NA - NA Social History Drugs/Alcohol: Social Info Question Answer Notes Alcohol Screen Did you have a drink containing alcohol in the past year? No Points 0 Interpretation Negative Tobacco Use: Social Info Question Answer Notes Tobacco Use/Smoking Patient is a current smoker How often do you smoke cigarettes? every day How many cigarettes a day do you smoke? 6-10 How soon after you wake up do you smoke your first cigarette? after 60 minutes Are you interested in quitting? 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 Problems Problem Type SNOMED Code ICD Code Onset Dates Problem Status W/U Status Risk Notes Problem Screening for malignant neoplasm of colon (047589301) Encounter for screening for malignant neoplasm of colon (Z12.11) Active confirmed Problem History of adenomatous polyp of colon (184522354) History of adenomatous polyp of colon (Z86.010) Active confirmed Problem Preprocedural examination (598028450410843) Preprocedural examination (Z01.818) Active confirmed Plan Of Treatment Future Test Test Name Order Date COLONOSCOPY 06/13/2017 Insurance Providers Payer Name Payer Address Payer Phone Subscriber Number Group Number Insured Name Patient Relationship to Insured Coverage Start Date Coverage End Date [facility] [address] [place], [place] [id number] LISA ROBERTSON Self - patient is the insured Medical (General) History Medical History History ICD Code Denies [place],DM,CVA,Lung disease,renal dise ase Hypertension Hyperlipidemia Sees Dr. Tian --vascular surgeon--re: claudication--on Cilostazol Colonoscopies in 2004 and 11 with small tubular adenomas removed, diverticulosis, and internal hemorrhoids Surgical History Surgery Date(Month/Year) Right Shoulder dislocation
== END 2025-04-15 13:17 | disposition home or self-care (01) ==
PROVIDERS: PCP Internal Medicine; Visit Provider Internal Medicine Medical Oncology
DX: Z79.01 Long term (current) use of anticoagulants (principal)

== ENCOUNTER → 2025-04-15 13:00 | Outpatient (BNVA) | payer MEDICARE, SELFPAY | PROVIDERS: PCP Internal Medicine; Visit Provider Internal Medicine Medical Oncology | DX: I48.0 Paroxysmal atrial fibrillation (principal); Z79.01 Long term (current) use of anticoagulants; Z51.81 Encounter for therapeutic drug level monitoring | CPT/HCPCS: 85610; 99211 ==

== ENCOUNTER 2025-04-20 13:59 | Outpatient (AMB) | payer MEDICARE, SELFPAY ==
--- NOTE | 2025-04-20 14:03 | A.OFFVIS_ITS ---
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 Instructions: Doctor's Order metoprolol succinate ER 50 mg PO BID nifedipine ER 60 mg PO DAILY umeclidinium 62.5 mcg/actuation (Incruse Ellipta) 1 inh inhalation DAILY warfarin 5 mg See Protocol PO DAILY HPI Comments Details: Sukh comes for follow-up. He said he is feeling well since being on digoxin with better rate control and no episodes of lightheadedness. He is tolerating this medication well. Heart rate is better controlled on digoxin. Denies any orthopnea, PND, leg edema. Currently taking Lasix 20 mg. Continues to have exertional shortness of breath when he over exerts himself. Also continues to have claudication but this is not limiting him. Recently saw vascular surgery for the same. Unfortunately continues to smoke. [facility] Medical History (Updated 04/20/25 @ 14:20 by Jonas Freitas MD) Persistent atrial fibrillation Paroxysmal atrial fibrillation Diverticulosis Ischemic cardiomyopathy Carotid disease, bilateral PVD (peripheral vascular disease) PVCs (premature ventricular contractions) Cardiac arrhythmia, unspecified Neoplasm COPD (chronic obstructive pulmonary disease) Hypercholesteremia HTN (hypertension) AAA (abdominal aortic aneurysm) [place] [employer] [employer] (hard of hearing) Myocardial infarct Surgical History Hx of vasectomy H/O colonoscopy Hx of endarterectomy History of shoulder surgery Family History Mother Myocardial infarct Sister Cancer Father No problems noted. 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 Current occupational exposures/hazards: No Review of Systems Const Denies chills, Denies fatigue, Denies fever(s), Denies frequent falls, Denies weakness, Denies weight gain and Denies weight loss ENT Denies dizziness Card Denies chest pain, Denies leg edema, Denies lightheadedness, Denies palpitations, Denies dyspnea, Denies dyspnea on exertion, Denies orthopnea and Denies other (loss of consciousness) Resp Denies cough, Denies dyspnea and Denies dyspnea on exertion GI Denies hematochezia and Denies change in stool character Musc Denies abnormal gait, Denies muscle weakness, Denies numbness, Denies radiating pain into limb and Denies tingling Neuro Denies abnormal gait, Denies dizziness, Denies frequent falls, Denies numbness, Denies tingling and Denies weakness Endo Denies fatigue and Denies palpitations Physical Exam Vital Signs: Last Vital Signs Pulse 71 04/20/25 14:04 BP 118/78 04/20/25 14:04 BMI result Body Mass Index 24.1 Const General: cooperative, comfortable, no acute distress, alert and awake Nutritional Appearance: thin Orientation/consciousness: patient oriented x3 Limitations: no limitations Neck Neck: Yes trachea midline, Yes supple and Yes no JVD Carotids: bruit bilateral Resp Effort & Inspection: normal respiratory effort Auscultation: crackles (coarse ) bilateral at the base, no rales, no wheezes and diminished lung sounds Cardio Jugular venous distension: no JVD Palpation: normal PMI Rhythm: abnormal rhythm irregularly irregular Heart sounds: S1 normal heart sound present, S2 normal heart sound present and Murmur heart sound present systolic (Ejection systolic) Peripheral pulses: other (Reduced bilateral distal) GI Auscultation: normal bowel sounds Skin General skin exam: no rashes or lesions noted Neuro General: patient oriented x3 and no focal motor deficits Extrem General: Yes no clubbing, cyanosis or edema Assessment & Plan Assessment & Plan (1) Chronic atrial fibrillation: Code(s): I48.20 - Chronic atrial fibrillation, unspecified Category: Medical Plan: Chronic atrial fibrillation with symptoms exertional shortness of breath which are multifactorial probably related to early diastolic heart failure as well as COPD related to smoking. Clinically appears to be euvolemic well compensated. Currently rate is better controlled on digoxin as well as metoprolol therapy. Continue the same. Currently on full oral anticoagulation with warfarin. [facility]. Maintain target INR between 2 and 3. (2) PVD (peripheral vascular disease): Comment: Bilateral SFA occlusion, being followed by [facility] vascular surgery, being treated medically Code(s): I73.9 - Peripheral vascular disease, unspecified Category: Medical Plan: Significant vascular disease related to smoking. Currently on warfarin therapy and therefore would avoid antiplatelet therapy. Smoking cessation was discussed. He is currently not interested. Continue statin therapy with target goal LDL less than 70 mg/dL. Also on cilostazol therapy. Encouraged to maintain activity level as tolerated. (3) Elevated brain natriuretic peptide (BNP) level: Code(s): R79.89 - Other specified abnormal findings of blood chemistry Category: Medical Plan: Elevated BNP suggestive of incipient early heart failure syndrome. Clinically today appears to be euvolemic well compensated on low-dose diuretic therapy. Continue the same. Signs and symptoms of heart failure were discussed. Continue rate control with atrial fibrillation which is helping his symptoms overall. Continue maintain activity level as tolerated. Will follow up in the clinic in 6 months time, sooner PRN. Thank you for allowing me to partake in his care Coding Level of Care Code Complex visit Add On G2211 Diagnoses Chronic atrial fibrillation I48.20 PVD (peripheral vascular disease) I73.9 Elevated brain natriuretic peptide (BNP) level R79.89
[2025-04-20 14:04] VITALS: BP 118/78; PULSE 71; BMI 24.1
== END 2025-04-20 14:23 | disposition home or self-care (01) ==
LOC: HO.HCS 13:59
PROVIDERS: PCP Internal Medicine; Visit Provider Internal Medicine Cardiovascular Disease
DX: I48.20 Chronic atrial fibrillation, unspecified (principal); I73.9 Peripheral vascular disease, unspecified; R79.89 Other specified abnormal findings of blood chemistry
CPT/HCPCS: 99214; G2211

== ENCOUNTER → 2025-04-20 13:59 | Outpatient (BNVA) | payer MEDICARE, SELFPAY | PROVIDERS: PCP Internal Medicine; Visit Provider Internal Medicine Cardiovascular Disease | DX: I48.20 Chronic atrial fibrillation, unspecified (principal); R79.89 Other specified abnormal findings of blood chemistry; I73.9 Peripheral vascular disease, unspecified; Z79.01 Long term (current) use of anticoagulants; F17.210 Nicotine dependence, cigarettes, uncomplicated | CPT/HCPCS: 99212 ==

== ENCOUNTER 2025-05-05 07:56 | Outpatient (AMB) | payer MEDICARE, SELFPAY ==
--- OUTSIDE RECORDS SUMMARY | 2025-05-05 07:58 | XMS_ITS | Patient Health Record ---
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 Problems Problem Type SNOMED Code ICD Code Onset Dates Problem Status W/U Status Risk Notes Problem Screening for malignant neoplasm of colon (956667715) Encounter for screening for malignant neoplasm of colon (Z12.11) Active confirmed Problem History of adenomatous polyp of colon (847685149) History of adenomatous polyp of colon (Z86.010) Active confirmed Problem Preprocedural examination (699223413255312) Preprocedural examination (Z01.818) Active confirmed Plan Of Treatment Future Test Test Name Order Date COLONOSCOPY 06/13/2017 Insurance Providers Payer Name Payer Address Payer Phone Subscriber Number Group Number Insured Name Patient Relationship to Insured Coverage Start Date Coverage End Date [facility] [address] [place], [place] [id number] LISA ROBERTSON Self - patient is the insured Medical (General) History Medical History History ICD Code Denies [place],DM,CVA,Lung disease,renal dise ase Hypertension Hyperlipidemia Sees Dr. Tian --vascular surgeon--re: claudication--on Cilostazol Colonoscopies in 2004 and 11 with small tubular adenomas removed, diverticulosis, and internal hemorrhoids Surgical History Surgery Date(Month/Year) Right Shoulder dislocation
--- NOTE | 2025-05-05 08:19 | MHC.OFFVISCO ---
Intake Intake Visit Reasons: Anticoagulation Allergies No Known Allergies (No Known Allergies*) Allergy (Verified 05/05/25 08:06) Medication List - Last Reconciled 05/05/25 by Adriane Schmidt RN atorvastatin 20 mg PO DAILY cilostazol 100 mg PO DAILY digoxin 125 mcg PO DAILY fluticasone propionate 50 mcg/actuation 1 spray intranasal BID PRN furosemide 20 mg PO DAILY losartan 25 mg PO DAILY Held on 01/13/25. Instructions: Doctor's Order metoprolol succinate ER 50 mg PO BID nifedipine ER 60 mg PO DAILY umeclidinium 62.5 mcg/actuation (Incruse Ellipta) 1 inh inhalation DAILY warfarin 5 mg See Protocol PO DAILY Nursing Note INR: 2.6 in therapeutic range Medications and supplements reviewed No changes in health, diet, medications, or supplements, Denies any signs and symptoms of bleeding or bruising or clotting. Bleeding, bruising, clotting discussed Nutritional guidance given Dose: 5MG X 2 DAYS / 2.5MG X 5 DAYS F/U INR: 3 WEEKS Patient verbalizes understanding of instructions given Anti-Coag Initial Assessment Social Hx Patient Tobacco Use Status: Current someday Tobacco user Tobacco use type: Cigarette alcohol intake: former Alcohol intake frequency: former alcohol drinker Cardiovascular Hx: HTN, [place], Arrhythmias and Other Lung Disease HX: COPD and Emphysema Blood Disorder Hx: Hyperlipidemia Cancer HX: No Psych. Illness/Depression: No Questionnaires HAS-BLED Does the patient had uncontrolled Hypertension?: No Does the patient have renal disease?: No Does the patient have liver disease?: No Does the patient have a history of stroke?: No Has the patient had major bleeding or predisposition to bleeding?: No Does the patient have labile INRs?: No Is the patient over 65 years of age?: Yes Is the patient on medications that gives them a predisposition to bleeding?: Yes Does the patient use alcohol?: No HAS-BLED Score: 2 CHADSVASC Age: 75 or over Gender: Male Does the patient have a history of CHF?: No Does the patient have a history of Hypertension?: Yes Does the patient have a history of Stroke/TIA/Thromboembolism?: No Does the patient have a history of Vascular Disease (prior [place], PAD or aortic plaque)?: Yes Does the patient have a history of Diabetes?: No CHADS VACS Score: 4 Kimi Prediction Score Rsk VTE Active Cancer: No Previous VTE, excluding superficial vein thrombosis: No Reduced mobility: No Already known Thrombophilic Condition: No With-in last month Trauma and/or Surgery: No Elderly 70 year or older: Yes Heart and/or Respiratory Failure: No Acute Myocardial infarction and/or Ischemic Stroke: No Acute Infection and/or Rheumatologic Disorder: No Obesity (BMI 30 or greater): No Ongoing Hormonal Treatment: No Score: 1 Kimi Score less than 4; Low Risk of VTE Kimi Score 4 or greater; High Risk of VTE Coding Level of Care Code Est Patient Level 1 Diagnoses Current use of anticoagulant therapy Z79.01 Results AMB INR Fingerstick AMB INR Fingerstick 2.6 Last Edit by Adriane Schmidt RN on 05/05/25 08:14 Assessment & Plan Assessment & Plan (1) Current use of anticoagulant therapy: 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
[2025-05-05 08:49] LABS: Prothrombin Time Whole Bld POC 31.2 sec (11.1-13.5); ~PT, ~INR - Anti Coag Clinic 2.6 (0.9-1.1)
== END 2025-05-05 08:24 | disposition home or self-care (01) ==
LOC: HO.ACS 07:56
PROVIDERS: PCP Internal Medicine; Visit Provider Internal Medicine Medical Oncology
DX: Z79.01 Long term (current) use of anticoagulants (principal)

== ENCOUNTER → 2025-05-05 07:56 | Outpatient (BNVA) | payer MEDICARE, SELFPAY | PROVIDERS: PCP Internal Medicine; Visit Provider Internal Medicine Medical Oncology | DX: I48.0 Paroxysmal atrial fibrillation (principal); Z51.81 Encounter for therapeutic drug level monitoring; Z79.01 Long term (current) use of anticoagulants | CPT/HCPCS: 85610; 99211 ==